=== PATIENT | male | born 1965 | race African-American/Black ===

== ENCOUNTER 2018-06-15 10:11 | Inpatient (IN) | payer OTHER ==
[2018-06-15 10:37] VITALS: BMI 30.1
--- NOTE | 2018-06-15 11:24 | HP ---
CIWA Score Nausea/Vomitin-Mild Nausea/No Vomiting Muscle Tremors: None Anxiety: 2 Agitation: 1-Slight > Activity Paroxysmal Sweats: No Perspiration Orientation: 0-Oriented Tacttile Disturbances: 0-None Auditory Disturbances: 0-None Visual Disturbances: 0-None Headache: 0-None Present CIWA-Ar Total Score: 4 - Admission Criteria OASAS Guidelines: Admission for Medically Managed Detox: Requires at least one of the followin. CIWA greater than 12 2. Seizures within the past 24 hours 3. Delirium tremens within the past 24 hours 4. Hallucinations within the past 24 hours 5. Acute intervention needed for co occurring medical disorder 6. Acute intervention needed for co occurring psychiatric disorder 7. Severe withdrawal that cannot be handled at a lower level of care (continued vomiting, continued diarrhea, abnormal vital signs) requiring intravenous medication and/or fluids 8. Patient presents the following: None of the above Admission Criteria Met: Admission criteria not met Admission ROS S - HPI Allergies/Adverse Reactions: Allergies Allergy/AdvReac Type Severity Reaction Status Date / Time No Known Drug Allergies Allergy Verified 08/19/16 17:35 History of Present Illness: patient here requesting detox etoh use reports 1 1/2 pint/day " for as long as I can remember " reports tremors if not drinking , denies seizures , blackouts , reports falls - most recently 1 week ago , hit right shoulder saw PCP given rx for Naproxen per pt own account ( [place] ) , states was referred by counsellor at [facility] , planning to go to rehab . Currently in [facility] 100 mg /day x 1 year , heroin use - latest 2-3 days ago , 1 bag denies IVDU . First age of heroin use : 18 , denies OD. Latest use this morning , usually starts drinking around 11 am. tobacco use : 1 ppd tony 0.004 PMHX : htn, hld, asthma ( dx 10 yrs ago , NH/ [place] , prn ALbuterol latest used yesterday) PSHx : denies PSych : insomnia , bipolar d/o . utox : + opi, MTD, BZO Meds : Seroquel , Clonazepam . SHX : unemployed , lives in 3/4 housing , denies legal issues. Reports recent of his son age 36 07/15 W February 2018 . This report was requested by: Soumya Coelho | Reference #: [id number] Others' Prescriptions Patient Name: Hussein Werner Date: 1965 Address: [address] [place], [place] [id number] Sex: Male Rx Written Rx Dispensed Drug Quantity Days Supply Prescriber Name 05/24/2018 06/03/2018 clonazepam 2 mg tablet 60 30 Adepoju, Tali Chelsey 04/26/2018 05/06/2018 clonazepam 2 mg tablet 60 30 Adepoju, Tali Chelsey 03/29/2018 04/06/2018 clonazepam 2 mg tablet 60 30 Adepoju, Tali Chelsey 03/01/2018 03/11/2018 clonazepam 2 mg tablet 60 30 Adepoju, Tali Chelsey 02/01/2018 02/10/2018 clonazepam 2 mg tablet 60 30 Adepoju, Tali Chelsey 01/04/2018 01/12/2018 clonazepam 2 mg tablet 60 30 Adepoju, Tali Chelsey 12/07/2017 12/13/2017 clonazepam 2 mg tablet 60 30 Adepoju, Tali Chelsey 11/09/2017 11/14/2017 clonazepam 1 mg tablet 90 30 Adepoju, Tali Chelsey 10/10/2017 10/15/2017 clonazepam 1 mg tablet 90 30 Adepoju, Tali Chelsey 09/15/2017 09/17/2017 clonazepam 1 mg tablet 90 30 Adepoju, Tali Chelsey 08/18/2017 08/19/2017 clonazepam 1 mg tablet 90 30 Adepoju, Tali Chelsey 07/21/2017 07/22/2017 clonazepam 1 mg tablet 90 30 Adepoju, Tali Chelsey 06/23/2017 06/23/2017 clonazepam 2 mg tablet 60 30 Adepoju, Tali Chelsey Exam Limitations: No Limitations - Ebola screening Have you traveled outside of the country in the last 21 days: No Have you had contact with anyone from an Ebola affected area: No Have you been sick,other than usual withdrawal symptoms: No Do you have a fever: No - Review of Systems Constitutional: See HPI EENT: reports: Other (glasses , dentures upper and lower) Respiratory: reports: No Symptoms reported Cardiac: reports: No Symptoms Reported GI: reports: No Symptoms Reported : reports: See HPI Musculoskeletal: reports: Joint Pain (right shoulder) Integumentary: reports: No Symptoms Reported Neuro: reports: No Symptoms reported Endocrine: reports: No Symptoms Reported Hematology: reports: No Symptoms Reported Psychiatric: reports: Orientated x3, Depressed Patient History - Patient Medical History Hx Anemia: No Hx Asthma: Yes (on albuterol inhaler) Hx Chronic Obstructive Pulmonary Disease (COPD): No Hx Cancer: No Hx Cardiac Disorders: No Hx Congestive Heart Failure: No Hx Hypertension: Yes (non compliance) Hx Hypercholesterolemia: No Hx Pacemaker: No HX Cerebrovascular Accident: No Hx Seizures: No Hx Dementia: No Hx Diabetes: No Hx Gastrointestinal Disorders: No Hx Liver Disease: No Hx Genitourinary Disorders: No Hx Sexually Transmitted Disorders: No Hx Renal Disease (ESRD): No Hx Thyroid Disease: No Hx Human Immunodeficiency Virus (HIV): No (last 08/11/16 negative) Hx Hepatitis C: No Hx Depression: Yes (insomnia) Hx Suicide Attempt: No Hx Bipolar Disorder: No Hx Schizophrenia: No - Patient Surgical History Past Surgical History: No Hx Neurologic Surgery: No Hx Cataract Extraction: No Hx Cardiac Surgery: No Hx Lung Surgery: No Hx Breast Surgery: No Hx Breast Biopsy: No Hx Abdominal Surgery: No Hx Appendectomy: No Hx Cholecystectomy: No Hx Genitourinary Surgery: No Hx Section: No Hx Orthopedic Surgery: No Anesthesia Reaction: No - Smoking Cessation Smoking history: Current every day smoker Have you smoked in the past 12 months: Yes Aproximately how many cigarettes per day: 20 Cigars Per Day: 0 Hx Chewing Tobacco Use: No Initiated information on smoking cessation: No - Substances Abused Crack Route: Smoking Frequency: 1-2 times per week Amount used: $50 Age of first use: 14 Date of Last Use: 06/11/18 Alcohol-vodka Route: Oral Frequency: Daily Amount used: 1-2 pts. Age of first use: 18 Date of Last Use: 06/14/18 Family Disease History - Family Disease History Family Disease History: CA: Brother ( prostate ), Other: Father (hiv ) Admission Physical Exam BHS - Vital Signs Vital Signs: Vital Signs - 24 hr 06/15/18 10:35 Temperature 98.4 F Pulse Rate 83 Respiratory 20 Rate Blood Pressure 121/70 - Physical General Appearance: Yes: Disheveled, Moderate Distress HEENTM: Yes: EOMI, Hearing grossly Normal, Normocephalic, Normal Voice, Other ( dentures) Respiratory: Yes: Chest Non-Tender, Lungs Clear Neck: Yes: No masses,lesions,Nodules, Trachea in good position Breast: Yes: Breast Exam Deferred Cardiology: Yes: Regular Rhythm, Regular Rate, S1, S2 Abdominal: Yes: Normal Bowel Sounds, Soft Genitourinary: Yes: Within Normal Limits Back: Yes: Normal Inspection Musculoskeletal: Yes: Gait Steady Extremities: Yes: Normal Capillary Refill, Normal Inspection Neurological: Yes: Alert, Normal Mood/Affect Integumentary: Yes: Normal Color, Dry, Warm - Diagnostic (1) Opioid dependence on agonist therapy Current Visit: No Status: Chronic (2) Asthma Current Visit: No Status: Chronic Qualifiers: Asthma severity: mild intermittent Asthma complication type: with status asthmaticus (3) Nicotine dependence Current Visit: No Status: Chronic Qualifiers: Nicotine product type: cigarettes Substance use status: uncomplicated Qualified Code(s): F17.210 - Nicotine dependence, cigarettes, uncomplicated (4) Alcohol dependence with withdrawal Current Visit: No Status: Acute Qualifiers: Complication of substance-induced condition: uncomplicated Qualified Code(s ): F10.230 - Alcohol dependence with withdrawal, uncomplicated BHS Breath Alcohol Content Breath Alcohol Content: 0.004 Urine Drug Screen - Results Drug Screen Negative: No Urine Drug Screen Results: OPI-Opiates, BZO-Benzodiazepines, MTD-Methadone
[2018-06-15] MEDS ORDERED: ACETAMINOPHEN 325 MG TABLET (FP) PO PRN (11:40)
[2018-06-15] MEDS ORDERED: MAG HYDROX/AL HYDROX/SIMETH 30 ML UNIT-DOSE CUP PO PRN (11:40)
[2018-06-15] MEDS ORDERED: guaiFENesin/D-METHORPHAN HB 10 ML UNIT-DOSE CUPS PO PRN (11:40)
[2018-06-15] MEDS ORDERED: chlordiazePOXIDE HCL 25 MG CAPSULE PO PRN (11:40)
[2018-06-15] MEDS ORDERED: MAGNESIUM CITRATE 300 ML BOTTLE PO PRN (11:40)
[2018-06-15] MEDS ORDERED: MENTHOL/PHENOL 1 EACH UD MM PRN (11:40)
[2018-06-15] MEDS ORDERED: MAGNESIUM HYDROX 2400MG/30ML ORAL SUSPENSION 30 ML CUP PO PRN (11:40)
[2018-06-15] MEDS ORDERED: P-EPHED 60MG/TRIPROLIDI 2.5MG TABLET PO PRN (11:40)
[2018-06-15] MEDS ORDERED: IBUPROFEN 400 MG TABLET (FP) PO PRN (11:40)
[2018-06-15] MEDS ORDERED: ALBUTEROL SO4 8 GM HFA INHALER IH PRN (11:42)
[2018-06-15] MEDS: chlordiazePOXIDE HCL 10 MG CAPSULE PO SCH ×2 (17:21→22:12)
[2018-06-15] MEDS ORDERED: MELATONIN 5 MG TABLETS PO PRN (22:00)
[2018-06-15] MEDS: THIAMINE HCL 100 MG TABLET (FP) PO SCH (22:12)
[2018-06-16] MEDS: chlordiazePOXIDE HCL 10 MG CAPSULE PO SCH ×2 (05:56→10:57)
[2018-06-16] MEDS ORDERED: METHADONE HCL 10 MG TABLET PO SCH (09:00)
--- NOTE | 2018-06-16 09:03 | CONSULT ---
[facility] Psychiatric Consult - Data Date of interview: 06/16/18 Admission source: [facility] Identifying data: Patient is a 52 year old single male, father of three, domiciled, unemployed, and supported by public assistance. This is one of multiple admissions for patient. Patient admitted to for alcohol and opiate dependence. Substance Abuse History: Smoking Cessation. Smoking history: Current every day smoker. Have you smoked in the past 12 months: Yes. Aproximately how many cigarettes per day: 20. Cigars Per Day: 0. Hx Chewing Tobacco Use: No. Initiated information on smoking cessation: No. - Substances Abused. Crack. Route: Smoking. Frequency: 1-2 times per week. Amount used: $50. Age of first use: 14. Date of Last Use: 06/11/18. Alcohol-vodka. Route: Oral. Frequency: Daily. Amount used: 1-2 pts. Age of first use: 18. Date of Last Use: 06/14/18 Medical History: Asthma, hypertension Psychiatric History: Patient presents as irritable and sedated. Patient denies h /o psychiatric hospitalizations. Mr. Werner is receiving outpatient psychiatric care at [facility] and is prescribed zoloft 100mg + Seroquel 300mg XR qhs + Klonopin 2mg BID. Patient denies h/o suicide attempt. Physical/Sexual Abuse/Trauma History: denies. Mental Status Exam - Mental Status Exam Alert and Oriented to: Time, Place, Person Cognitive Function: Good Patient Appearance: Well Groomed Mood: Irritable Affect: Mood Congruent Patient Behavior: Sedated, Fatigued Speech Pattern: Delayed Voice Loudness: Moderately Soft/Quiet Thought Process: Intact, Goal Oriented Thought Disorder: Not Present Hallucinations: Denies Suicidal Ideation: Denies Homicidal Ideation: Denies Insight/Judgement: Poor Sleep: Poorly (Reports poor sleep last night) Appetite: Fair Muscle strength/Tone: Normal Gait/Station: Normal Psychiatric Findings - Problem List ([place] 1, 2,3) (1) Opioid dependence Current Visit: Yes Status: Acute (2) Alcohol dependence with withdrawal Current Visit: Yes Status: Acute Qualifiers: Complication of substance-induced condition: uncomplicated Qualified Code(s ): F10.230 - Alcohol dependence with withdrawal, uncomplicated (3) Methadone maintenance therapy patient Current Visit: Yes Status: Acute (4) Substance induced mood disorder Current Visit: Yes Status: Acute - Initial Treatment Plan Initial Treatment Plan: Psychoeducation provided. Detoxification in progress. Will order Seroquel 200mg XR qhs @ 21:00 (reduce dosage due to risk of oversedation). Patient refusing to resume zoloft 100mg at this time. Patient informed of the risk of not resuming zoloft. Benefits and side effects discussed. Verbal consent given.
[2018-06-16] MEDS ORDERED: METHADONE HCL 40 MG DISPERSABLE TABLET ONE (09:24)
[2018-06-16] MEDS ORDERED: METHADONE HCL 10 MG TABLET ONE (09:24)
[2018-06-16 10:51] LABS: HEMATOCRIT 36.4 % (35.4-49); HEMOGLOBIN 11.5 GM/dL (11.7-16.9); MCH 26.3 pg (25.7-33.7); MCHC 31.6 g/dl (32.0-35.9); MEAN CELL VOLUME 83.3 fl (80-96); MEAN PLT VOLUME 9.5 fl (7.5-11.1); PLATELET COUNT 264 K/MM3 (134-434); RBC 4.37 M/mm3 (4.00-5.60); RDW 15.2 % (11.9-15.9)
[2018-06-16] MEDS: METHADONE 80 MG, METHADONE 20 MG PO SCH (10:58)
[2018-06-16] MEDS: PRENATAL VITAMINS W/ FOLIC ACID TABLET (FP) PO SCH (10:58)
[2018-06-16 11:40] LABS: ALBUMIN 3.8 g/dl (3.4-5.0); ALK PHOS 95 U/L (45-117); ANION GAP 8 MMOL/L (8-16); BILIRUBIN,TOTAL 0.7 mg/dL (0.2-1); BLOOD UREA NITROGEN 16 mg/dL (7-18); CHLORIDE 103 mmol/L (98-107); CO2 25 mmol/L (21-32); CREATININE 1.4 mg/dL (0.55-1.3); GLUCOSE,RANDOM 91 mg/dL (74-106); POTASSIUM 4.8 mmol/L (3.5-5.1); SGOT/AST 27 U/L (15-37); SGPT/ALT 34 U/L (13-61); SODIUM 136 mmol/L (136-145); TOT PROT 7.5 g/dl (6.4-8.2)
--- NOTE | 2018-06-16 17:52 | PN ---
S CIWA - CIWA Score Nausea/Vomitin-No Nausea/No Vomiting Muscle Tremors: None Anxiety: 4-Mod. Anxious/Guarded Agitation: 4-Moderately Restless Paroxysmal Sweats: No Perspiration Orientation: 0-Oriented Tacttile Disturbances: 2-Mild Itch/Numbness/Burn Auditory Disturbances: 0-None Visual Disturbances: 3-Moderate Sensitivity Headache: 0-None Present CIWA-Ar Total Score: 13 BHS Progress Note (SOAP) Subjective: Body Aches, Anxious, Diarrhea. Objective: PATIENT A & O X 3, OBSERVED AMBULATING ON UNIT. IN NO ACUTE DISTRESS. 06/16/18 17:51 Vital Signs Temperature 98.2 F 06/16/18 15:43 Pulse Rate 74 06/16/18 15:43 Respiratory Rate 18 06/16/18 15:43 Blood Pressure 132/93 06/16/18 15:43 O2 Sat by Pulse Oximetry (%) Laboratory Tests 06/15/18 06/16/18 06/16/18 15:36 05:45 05:45 WBC 10.0 RBC 4.37 Hgb 11.5 L Hct 36.4 MCV 83.3 MCH 26.3 MCHC 31.6 L RDW 15.2 Plt Count 264 MPV 9.5 Sodium 136 Potassium 4.8 Chloride 103 Carbon Dioxide 25 Anion Gap 8 BUN 16 Creatinine 1.4 H Creat Clearance w eGFR 52.81 Random Glucose 91 Calcium 9.0 Total Bilirubin 0.7 AST 27 ALT 34 Alkaline Phosphatase 95 Total Protein 7.5 Albumin 3.8 RPR Titer HIV 1&2 Antibody Screen Negative HIV P24 Antigen Negative 06/16/18 05:45 WBC RBC Hgb Hct MCV MCH MCHC RDW Plt Count MPV Sodium Potassium Chloride Carbon Dioxide Anion Gap BUN Creatinine Creat Clearance w eGFR Random Glucose Calcium Total Bilirubin AST ALT Alkaline Phosphatase Total Protein Albumin RPR Titer Nonreactive HIV 1&2 Antibody Screen HIV P24 Antigen LABS NOTED. Assessment: 06/16/18 17:51 WITHDRAWAL SYMPTOMS. Plan: CONTINUE DETOX. D/C IBUPROFEN AND MAGNESIUM-CONTAINING MEDS. FOR ABNORMAL ADMISSION RENAL LAB VALUES.
[2018-06-16] MEDS: chlordiazePOXIDE HCL 25 MG CAPSULE PO SCH ×2 (18:09→22:40)
[2018-06-16] MEDS ORDERED: QUEtiapine FUMARATE 200 MG TABLET PO SCH (22:00)
[2018-06-16] MEDS: THIAMINE HCL 100 MG TABLET (FP) PO SCH (22:40)
[2018-06-17] MEDS ORDERED: METHADONE HCL 40 MG DISPERSABLE TABLET ONE (05:30)
[2018-06-17] MEDS ORDERED: METHADONE HCL 10 MG TABLET ONE (05:30)
[2018-06-17] MEDS: METHADONE 80 MG, METHADONE 20 MG PO SCH (05:42)
[2018-06-17] MEDS: chlordiazePOXIDE HCL 25 MG CAPSULE PO SCH ×2 (05:42→10:32)
--- NOTE | 2018-06-17 10:05 | PN ---
S CIWA - CIWA Score Nausea/Vomitin Muscle Tremors: 2 Anxiety: 2 Agitation: 2 Paroxysmal Sweats: 1-Minimal Palms Moist Orientation: 0-Oriented Tacttile Disturbances: 1-Very Mild Itch/Numbness Auditory Disturbances: 1-Very Mild Visual Disturbances: 0-None Headache: 2-Mild CIWA-Ar Total Score: 13 BHS Progress Note (SOAP) Subjective: alert,irritable,anxious,interrupted sleep Objective: 06/17/18 10:02 Vital Signs Temperature 98.2 F 06/17/18 06:49 Pulse Rate 73 06/17/18 06:49 Respiratory Rate 18 06/17/18 06:49 Blood Pressure 118/67 06/17/18 06:49 O2 Sat by Pulse Oximetry (%) Laboratory Last Values WBC 10.0 K/mm3 (4.0-10.0) 06/16/18 05:45 RBC 4.37 M/mm3 (4.00-5.60) 06/16/18 05:45 Hgb 11.5 GM/dL (11.7-16.9) L 06/16/18 05:45 Hct 36.4 % (35.4-49) 06/16/18 05:45 MCV 83.3 fl (80-96) 06/16/18 05:45 MCH 26.3 pg (25.7-33.7) 06/16/18 05:45 MCHC 31.6 g/dl (32.0-35.9) L 06/16/18 05:45 RDW 15.2 % (11.9-15.9) 06/16/18 05:45 Plt Count 264 K/MM3 (134-434) 06/16/18 05:45 MPV 9.5 fl (7.5-11.1) 06/16/18 05:45 Sodium 136 mmol/L (136-145) 06/16/18 05:45 Potassium 4.8 mmol/L (3.5-5.1) 06/16/18 05:45 Chloride 103 mmol/L (98-107) 06/16/18 05:45 Carbon Dioxide 25 mmol/L (21-32) 06/16/18 05:45 Anion Gap 8 MMOL/L (8-16) 06/16/18 05:45 BUN 16 mg/dL (7-18) 06/16/18 05:45 Creatinine 1.4 mg/dL (0.55-1.3) H 06/16/18 05:45 Creat Clearance w eGFR 52.81 (>60) 06/16/18 05:45 Random Glucose 91 mg/dL (74-106) 06/16/18 05:45 Calcium 9.0 mg/dL (8.5-10.1) 06/16/18 05:45 Total Bilirubin 0.7 mg/dL (0.2-1) 06/16/18 05:45 AST 27 U/L (15-37) 06/16/18 05:45 ALT 34 U/L (13-61) 06/16/18 05:45 Alkaline Phosphatase 95 U/L (45-117) 06/16/18 05:45 Total Protein 7.5 g/dl (6.4-8.2) 06/16/18 05:45 Albumin 3.8 g/dl (3.4-5.0) 06/16/18 05:45 RPR Titer Nonreactive (NONREACTIVE) 06/16/18 05:45 HIV 1&2 Antibody Screen Negative 06/15/18 15:36 HIV P24 Antigen Negative 06/15/18 15:36 Assessment: 06/17/18 10:03 withdrawal symptom Plan: continue detox,creatinine 1.4,bun16,k4.8,continue fluid,repeat bpm in am
[2018-06-17] MEDS ORDERED: ALBUTEROL SO4 8 GM HFA INHALER IH PRN (10:07)
[2018-06-17] MEDS: PRENATAL VITAMINS W/ FOLIC ACID TABLET (FP) PO SCH (10:32)
[2018-06-17] MEDS: chlordiazePOXIDE 5 MG CAPSULE PO SCH ×2 (18:05→22:16)
[2018-06-17] MEDS: THIAMINE HCL 100 MG TABLET (FP) PO SCH (22:16)
[2018-06-18] MEDS ORDERED: METHADONE HCL 40 MG DISPERSABLE TABLET ONE (04:40)
[2018-06-18] MEDS ORDERED: METHADONE HCL 10 MG TABLET ONE (04:40)
[2018-06-18] MEDS: METHADONE 80 MG, METHADONE 20 MG PO SCH (06:03)
[2018-06-18] MEDS: chlordiazePOXIDE 5 MG CAPSULE PO SCH ×2 (06:03→10:29)
--- NOTE | 2018-06-18 10:25 | PN ---
BHS Progress Note (SOAP) Subjective: feeling better less sweat no tremor no gi distress discuss aftercare with staff Objective: 06/18/18 11:55 Vital Signs Temperature 97.9 F 06/18/18 09:48 Pulse Rate 88 06/18/18 09:48 Respiratory Rate 16 06/18/18 09:48 Blood Pressure 122/91 06/18/18 09:48 O2 Sat by Pulse Oximetry (%) Laboratory Last Values WBC 10.0 K/mm3 (4.0-10.0) 06/16/18 05:45 RBC 4.37 M/mm3 (4.00-5.60) 06/16/18 05:45 Hgb 11.5 GM/dL (11.7-16.9) L 06/16/18 05:45 Hct 36.4 % (35.4-49) 06/16/18 05:45 MCV 83.3 fl (80-96) 06/16/18 05:45 MCH 26.3 pg (25.7-33.7) 06/16/18 05:45 MCHC 31.6 g/dl (32.0-35.9) L 06/16/18 05:45 RDW 15.2 % (11.9-15.9) 06/16/18 05:45 Plt Count 264 K/MM3 (134-434) 06/16/18 05:45 MPV 9.5 fl (7.5-11.1) 06/16/18 05:45 Sodium 136 mmol/L (136-145) 06/16/18 05:45 Potassium 4.8 mmol/L (3.5-5.1) 06/16/18 05:45 Chloride 103 mmol/L (98-107) 06/16/18 05:45 Carbon Dioxide 25 mmol/L (21-32) 06/16/18 05:45 Anion Gap 8 MMOL/L (8-16) 06/16/18 05:45 BUN 16 mg/dL (7-18) 06/16/18 05:45 Creatinine 1.4 mg/dL (0.55-1.3) H 06/16/18 05:45 Creat Clearance w eGFR 52.81 (>60) 06/16/18 05:45 Random Glucose 91 mg/dL (74-106) 06/16/18 05:45 Calcium 9.0 mg/dL (8.5-10.1) 06/16/18 05:45 Total Bilirubin 0.7 mg/dL (0.2-1) 06/16/18 05:45 AST 27 U/L (15-37) 06/16/18 05:45 ALT 34 U/L (13-61) 06/16/18 05:45 Alkaline Phosphatase 95 U/L (45-117) 06/16/18 05:45 Total Protein 7.5 g/dl (6.4-8.2) 06/16/18 05:45 Albumin 3.8 g/dl (3.4-5.0) 06/16/18 05:45 RPR Titer Nonreactive (NONREACTIVE) 06/16/18 05:45 HIV 1&2 Antibody Screen Negative 06/15/18 15:36 HIV P24 Antigen Negative 06/15/18 15:36 lab noted Assessment: 06/18/18 11:55 mild withdrawal sx Plan: continue detox
[2018-06-18] MEDS: PRENATAL VITAMINS W/ FOLIC ACID TABLET (FP) PO SCH (10:29)
[2018-06-18 13:09] LABS: ANION GAP 7 MMOL/L (8-16); BLOOD UREA NITROGEN 14 mg/dL (7-18); CALCIUM 8.5 mg/dL (8.5-10.1); CHLORIDE 104 mmol/L (98-107); CO2 28 mmol/L (21-32); CREATININE 1.2 mg/dL (0.55-1.3); GLUCOSE,RANDOM 112 mg/dL (74-106); POTASSIUM 3.9 mmol/L (3.5-5.1); SODIUM 138 mmol/L (136-145)
[2018-06-18] MEDS: chlordiazePOXIDE HCL 10 MG CAPSULE PO SCH ×2 (17:57→22:32)
[2018-06-18] MEDS: THIAMINE HCL 100 MG TABLET (FP) PO SCH (22:32)
[2018-06-19] MEDS ORDERED: METHADONE HCL 40 MG DISPERSABLE TABLET ONE (05:54)
[2018-06-19] MEDS ORDERED: METHADONE HCL 10 MG TABLET ONE (05:55)
[2018-06-19] MEDS: chlordiazePOXIDE HCL 10 MG CAPSULE PO SCH (06:02)
[2018-06-19] MEDS: METHADONE 80 MG, METHADONE 20 MG PO SCH (06:02)
[2018-06-19 07:22] VITALS: TEMP 97.7
[2018-06-19 07:36] VITALS: BP 132/86; PULSE 85
--- NOTE | 2018-06-19 21:35 | DS ---
[facility] Detox Discharge Summary Admission Date: 06/15/18 Discharge Date: 06/19/18 - History Present History: Alcohol Dependence, Opioid Dependence, MMTP Additional Comments: PATIENT RETURNING TO [facility] ([place], [place]) FOR AFTERCARE. PATIENT WILL ALSO ATTEND [facility] ([place], [place]) FOR AFTERCARE. PATIENT WAS DISCHARGED FROM DETOX UNIT IN STABLE MEDICAL CONDITION. Pertinent Past History: History of Depression, History of Anxiety, History of Insomnia, M.M.T.P., Nicotine Dependence. - Physical Exam Results Vital Signs: Vital Signs Temperature 97.7 F 06/19/18 07:35 Pulse Rate 85 06/19/18 07:35 Respiratory Rate 20 06/19/18 07:35 Blood Pressure 132/86 06/19/18 07:35 O2 Sat by Pulse Oximetry (%) Pertinent Admission Physical Exam Findings: WITHDRAWAL SYMPTOMS. Laboratory Tests 06/15/18 06/16/18 06/16/18 15:36 05:45 05:45 WBC 10.0 RBC 4.37 Hgb 11.5 L Hct 36.4 MCV 83.3 MCH 26.3 MCHC 31.6 L RDW 15.2 Plt Count 264 MPV 9.5 Sodium 136 Potassium 4.8 Chloride 103 Carbon Dioxide 25 Anion Gap 8 BUN 16 Creatinine 1.4 H Creat Clearance w eGFR 52.81 Random Glucose 91 Calcium 9.0 Total Bilirubin 0.7 AST 27 ALT 34 Alkaline Phosphatase 95 Total Protein 7.5 Albumin 3.8 RPR Titer HIV 1&2 Antibody Screen Negative HIV P24 Antigen Negative 06/16/18 06/18/18 05:45 07:40 WBC RBC Hgb Hct MCV MCH MCHC RDW Plt Count MPV Sodium 138 Potassium 3.9 Chloride 104 Carbon Dioxide 28 Anion Gap 7 L BUN 14 Creatinine 1.2 Creat Clearance w eGFR > 60 Random Glucose 112 H Calcium 8.5 Total Bilirubin AST ALT Alkaline Phosphatase Total Protein Albumin RPR Titer Nonreactive HIV 1&2 Antibody Screen HIV P24 Antigen LABS NOTED. - Treatment Hospital Course: Detox Protocol Followed, Detoxed Safely, Responded well, Discharged Condition Good Patient has Accepted a Rehab Referral to: '[facility]/ [facility] ([place], [place]). - Medication Discharge Medications: Ambulatory Orders Quetiapine Fumarate [Seroquel -] 300 mg PO HS 04/20/16 Albuterol Sulfate Inhaler - [Ventolin HFA Inhaler -] 2 puff IH Q4H PRN #1 inhaler 08/23/16 Clonidine HCl [Catapres] 0.3 mg PO TID 06/15/18 Quetiapine Fumarate "Xr" [Seroquel XR] 200 mg PO HS 06/16/18 - Diagnosis (1) Alcohol dependence with withdrawal Status: Acute Qualifiers: Complication of substance-induced condition: uncomplicated Qualified Code(s ): F10.230 - Alcohol dependence with withdrawal, uncomplicated (2) Asthma Status: Chronic Qualifiers: Asthma severity: mild Asthma persistence: intermittent Asthma complication type: uncomplicated Qualified Code(s): J45.20 - Mild intermittent asthma, uncomplicated (3) Nicotine dependence Status: Chronic Qualifiers: Nicotine product type: cigarettes Substance use status: uncomplicated Qualified Code(s): F17.210 - Nicotine dependence, cigarettes, uncomplicated (4) Opioid dependence on agonist therapy Status: Chronic (5) Methadone maintenance therapy patient Status: Chronic (6) Substance induced mood disorder Status: Acute - AMA Did Patient Leave Against Medical Advice: No
== END 2018-06-19 09:07 | disposition home or self-care (01) | DRG 773 ==
LOC: YASAS 10:11 → Y6N 14:47
PROC: HZ2ZZZZ Detoxification Services for Substance Abuse Treatment (ICD-10-PCS; principal; 2018-06-15)
DX: F10.230 Alcohol dependence with withdrawal, uncomplicated (principal); F14.20 Cocaine dependence, uncomplicated; F11.20 Opioid dependence, uncomplicated; F17.210 Nicotine dependence, cigarettes, uncomplicated; F19.24 Other psychoactive substance dependence with psychoactive substance-induced mood disorder; F31.9 Bipolar disorder, unspecified; G47.00 Insomnia, unspecified; I10 Essential (primary) hypertension; J45.20 Mild intermittent asthma, uncomplicated; E78.5 Hyperlipidemia, unspecified
CPT/HCPCS: 36415; 80048; 80053; 85027; 86593; 87389

== ENCOUNTER 2020-03-13 15:04 | Inpatient (IN) | payer OTHER ==
--- NOTE | 2020-03-13 15:20 | BHS.RME ---
Substance Use & Tx History - Substance Use History Alcohol Substance amount: 1 pint vodka Frequency of use: Daily Substance route: Oral Date of Last Use: 03/12/20 (started age 18) Heroin Substance amount: 2 bags Frequency of use: Daily Substance route: Inhalation (ex: sniffing or snorting) Date of Last Use: 03/13/20 (started age 18) Cocaine-Crack Substance amount: $70 Frequency of use: Daily Substance route: Smoking Date of Last Use: 03/13/20 (started age 16) Nicotine Substance amount: 1 pack Frequency of use: Daily Substance route: Smoking Date of Last Use: 03/13/20 (started age 13) Klonopin Substance amount: 1mg 2 tabs Frequency of use: Daily Substance route: Oral Date of Last Use: 03/13/20 (prescribed by psychiatrist) Physical/Psych/Mental Status - Behavior General Behavior: Increased activity (restlessness, agitation) Eye Contact: Normal - Cooperativeness Cooperativeness: Cooperative - Thinking Thought Processes: Tight, Logical, Goal Directed - Physical Health Problems Is patient presently having any pain?: No Does patient presently have any injuries (include location): No Does patient currently have a fever: No Is patient : No CIWA Nausea/Vomitin-No Nausea/No Vomiting Muscle Tremors: 3 Anxiety: 3 Agitation: 3 Paroxysmal Sweats: 1-Minimal Palms Moist Orientation: 0-Oriented Tacttile Disturbances: 0-None Auditory Disturbances: 0-None Visual Disturbances: 1-Very Mild Sensitivity Headache: 0-None Present CIWA-Ar Total Score: 11
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
[2020-03-13] MEDS ORDERED: NICOTINE POLACRILEX 2 MG GUM BUC PRN (16:34)
[2020-03-13] MEDS ORDERED: MAGNESIUM CITRATE 300 ML BOTTLE PO PRN (16:34)
[2020-03-13] MEDS ORDERED: chlordiazePOXIDE HCL 25 MG CAPSULE PO PRN (16:34)
[2020-03-13] MEDS ORDERED: ACETAMINOPHEN 325 MG TABLET (FP) PO PRN ×2 (16:34)
[2020-03-13] MEDS ORDERED: MENTHOL/PHENOL 1 EACH UD MM PRN (16:34)
[2020-03-13] MEDS ORDERED: BISMUTH SUBSALICYLATE 524 MG/30 ML UD PO PRN (16:34)
[2020-03-13] MEDS ORDERED: ONDANSETRON *ODT* 4 MG TABLET SL PRN (16:34)
[2020-03-13] MEDS ORDERED: MAG HYDROX/AL HYDROX/SIMETH 30 ML UNIT-DOSE CUP PO PRN (16:34)
[2020-03-13] MEDS ORDERED: IBUPROFEN 400 MG TABLET (FP) PO PRN (16:34)
[2020-03-13] MEDS ORDERED: MAGNESIUM HYDROX 2400MG/30ML ORAL SUSPENSION 30 ML CUP PO PRN (16:34)
[2020-03-13] MEDS ORDERED: METHOCARBAMOL 500 MG TABLET PO PRN (16:34)
[2020-03-13 16:46] VITALS: BMI 27.4
[2020-03-13] MEDS ORDERED: ALBUTEROL SO4 HFA INHALER IH PRN (17:31)
[2020-03-13] MEDS: chlordiazePOXIDE HCL 25 MG CAPSULE PO SCH ×2 (18:22→22:10)
[2020-03-13] MEDS: NICOTINE 21 MG/24 HOURS TOPICAL PATCH TD SCH (18:22)
[2020-03-13] MEDS: PETROLATUM, WHITE 30 GM TUBE TP SCH (18:23)
[2020-03-13] MEDS: hydrOXYzine PAMOATE 25 MG CAPSULE (FP) PO SCH ×2 (18:26→22:12)
[2020-03-13] MEDS: THIAMINE HCL 100 MG TABLET (FP) PO SCH (22:10)
[2020-03-13] MEDS: MELATONIN 5 MG TABLETS PO SCH (22:11)
[2020-03-13] MEDS: cloNIDine HCL 0.1 MG TABLET PO SCH (22:11)
[2020-03-14] MEDS: hydrOXYzine PAMOATE 25 MG CAPSULE (FP) PO SCH ×5 (07:06→22:41)
[2020-03-14] MEDS: chlordiazePOXIDE HCL 25 MG CAPSULE PO SCH ×4 (07:06→22:41)
[2020-03-14] MEDS: cloNIDine HCL 0.1 MG TABLET PO SCH ×2 (07:12→13:21)
--- NOTE | 2020-03-14 08:17 | PN ---
Teaching Attending Note Name of Resident: Jose Barnes ATTENDING PHYSICIAN STATEMENT I saw and evaluated the patient. I reviewed the resident's note and discussed the case with the resident. I agree with the resident's findings and plan as documented. SUBJECTIVE: OBJECTIVE: ASSESSMENT AND PLAN: Agree with resident's findings and plan for detox.
--- NOTE | 2020-03-14 10:26 | EKG ---
Test Reason : Blood Pressure : / mmHG Vent. Rate : 064 BPM Atrial Rate : 064 BPM P-R Int : 112 ms QRS Dur : 086 ms QT Int : 416 ms P-R-T Axes : 025 047 032 degrees QTc Int : 429 ms NORMAL SINUS RHYTHM NONSPECIFIC T WAVE ABNORMALITY ABNORMAL ECG WHEN COMPARED WITH ECG OF 19-AUG-2016 19:09, NONSPECIFIC T WAVE ABNORMALITY NOW EVIDENT IN ANTERIOR LEADS CLINICAL CORRELATION IS RECOMMENDED Confirmed by ROXANA AHUJA MD ([id number]) on 03/14/2020 10:25:53 AM Referred By: Confirmed By:ROXANA AHUJA MD
[2020-03-14 10:30] LABS: HEMATOCRIT 34.5 % (35.4-49); HEMOGLOBIN 11.2 GM/dL (11.7-16.9); MCH 27.1 pg (25.7-33.7); MCHC 32.4 g/dl (32.0-35.9); MEAN CELL VOLUME 83.6 fl (80-96); PLATELET COUNT 216 K/MM3 (134-434); RBC 4.13 M/mm3 (4.00-5.60); RDW 14.3 % (11.9-15.9); WHITE BLOOD COUNT 7.8 K/mm3 (4.0-10.0)
[2020-03-14 10:40] LABS: ALBUMIN 3.5 g/dl (3.4-5.0); BILIRUBIN,TOTAL 0.6 mg/dL (0.2-1); BLOOD UREA NITROGEN 15.8 mg/dL (7-18); CALCIUM 8.7 mg/dL (8.5-10.1); CREATININE 1.2 mg/dL (0.55-1.3); POTASSIUM 3.9 mmol/L (3.5-5.1); TOT PROT 6.4 g/dl (6.4-8.2)
[2020-03-14] MEDS: METHADONE HCL 40 MG DISPERSABLE TABLET PO SCH (11:31)
[2020-03-14] MEDS: PETROLATUM, WHITE 30 GM TUBE TP SCH (11:32)
[2020-03-14] MEDS: PRENATAL VITAMINS W/ FOLIC ACID TABLET (FP) PO SCH (11:32)
[2020-03-14] MEDS: NICOTINE 21 MG/24 HOURS TOPICAL PATCH TD SCH (11:32)
--- NOTE | 2020-03-14 12:02 | CONSULT ---
[facility] Psychiatric Consult - Data Date of interview: 03/14/20 Admission source: [facility] Identifying data: Patient is approached, at bedside, for psychiatric evaluation. Medical student in attendance. Mr Werner refuses examination. " What is your reason for talking to me ? I don't have psychiatric problems." Nursing staff is made aware.
--- NOTE | 2020-03-14 12:41 | PN ---
S CIWA - CIWA Score Nausea/Vomitin-No Nausea/No Vomiting Muscle Tremors: 2 Anxiety: 3 Agitation: 0-Normal Activity Paroxysmal Sweats: 3 Orientation: 0-Oriented Tacttile Disturbances: 0-None Auditory Disturbances: 0-None Visual Disturbances: 0-None Headache: 2-Mild CIWA-Ar Total Score: 10 BHS Progress Note (SOAP) Subjective: c/o anxiety, sweats, shakes, and headache. Objective: 03/14/20 12:40 Vital Signs 03/14/20 03/14/20 05:49 09:05 Temperature 97.7 F 96.8 F L Pulse Rate 59 L 76 Respiratory 18 18 Rate Blood Pressure 118/71 131/83 O2 Sat by Pulse 98 Oximetry (%) Laboratory Last Values WBC 7.8 K/mm3 (4.0-10.0) 03/14/20 07:35 RBC 4.13 M/mm3 (4.00-5.60) 03/14/20 07:35 Hgb 11.2 GM/dL (11.7-16.9) L 03/14/20 07:35 Hct 34.5 % (35.4-49) L 03/14/20 07:35 MCV 83.6 fl (80-96) 03/14/20 07:35 MCH 27.1 pg (25.7-33.7) 03/14/20 07:35 MCHC 32.4 g/dl (32.0-35.9) 03/14/20 07:35 RDW 14.3 % (11.9-15.9) 03/14/20 07:35 Plt Count 216 K/MM3 (134-434) 03/14/20 07:35 MPV 9.0 fl (7.5-11.1) 03/14/20 07:35 Sodium 143 mmol/L (136-145) 03/14/20 07:35 Potassium 3.9 mmol/L (3.5-5.1) 03/14/20 07:35 Chloride 110 mmol/L (98-107) H 03/14/20 07:35 Carbon Dioxide 29 mmol/L (21-32) 03/14/20 07:35 Anion Gap 4 MMOL/L (8-16) L 03/14/20 07:35 BUN 15.8 mg/dL (7-18) 03/14/20 07:35 Creatinine 1.2 mg/dL (0.55-1.3) 03/14/20 07:35 Est GFR (CKD-EPI)AfAm 77.88 03/14/20 07:35 Est GFR (CKD-EPI)NonAf 67.19 03/14/20 07:35 Random Glucose 104 mg/dL (74-106) 03/14/20 07:35 Calcium 8.7 mg/dL (8.5-10.1) 03/14/20 07:35 Total Bilirubin 0.6 mg/dL (0.2-1) 03/14/20 07:35 AST 24 U/L (15-37) 03/14/20 07:35 ALT 25 U/L (13-61) 03/14/20 07:35 Alkaline Phosphatase 71 U/L (45-117) 03/14/20 07:35 Total Protein 6.4 g/dl (6.4-8.2) 03/14/20 07:35 Albumin 3.5 g/dl (3.4-5.0) 03/14/20 07:35 Labs noted. Assessment: 03/14/20 12:40 AOX3, in no acute respiratory distress. Full ROM, ambulating in the unit. Withdrawal symptoms. Plan: continue detox.
--- NOTE | 2020-03-14 14:07 | PN ---
S Progress Note Note: clonidine 0.3mg po tid discontinued, as per pt's pharmacy ([facility], [address] [place], [place] [id number], ) pt last refill was on 06/28/2019 (June 28, 2019).
--- NOTE | 2020-03-14 20:23 | PN ---
[facility] Progress Note Note: Called to see patient who was found sitting on floor. Patient denies falling. States "I went down on my knees so I could lay my head in the chair to help decrease my neck and shoulder pain." Patient states was sitting in chair and put head back and heard neck crack. States he had pain immediately going down arm and now has numbness in middle and ring finger of (L) hand." Assess: FROM neck, slowly. No crepitus palpated. FROM (L) shoulder w/ tenderness w/lift > 90 degrees and w/o crepitus. Positive tenderness upon palpation of the trapezius/scapula muscle area. Plan: Muscle relaxants (Robaxin) Increase ibuprofen dosage Lidocaine patch (L) shoulder area.
[2020-03-14] MEDS ORDERED: IBUPROFEN 600 MG TABLET (FP) PO PRN (20:40)
[2020-03-14] MEDS: LIDOCAINE 5% TOPICAL PATCH TP SCH (21:55)
[2020-03-14] MEDS: MELATONIN 5 MG TABLETS PO SCH (22:41)
[2020-03-14] MEDS: THIAMINE HCL 100 MG TABLET (FP) PO SCH (22:41)
[2020-03-15] MEDS: METHADONE HCL 40 MG DISPERSABLE TABLET PO SCH (05:56)
[2020-03-15] MEDS: chlordiazePOXIDE HCL 25 MG CAPSULE PO SCH ×4 (05:56→22:08)
[2020-03-15] MEDS: hydrOXYzine PAMOATE 25 MG CAPSULE (FP) PO SCH ×5 (05:56→22:08)
[2020-03-15] MEDS: PRENATAL VITAMINS W/ FOLIC ACID TABLET (FP) PO SCH (10:07)
[2020-03-15] MEDS: LIDOCAINE PATCH REMOVAL MC SCH (10:53)
[2020-03-15] MEDS: PETROLATUM, WHITE 30 GM TUBE TP SCH (10:55)
[2020-03-15] MEDS: NICOTINE 21 MG/24 HOURS TOPICAL PATCH TD SCH (10:55)
--- NOTE | 2020-03-15 13:02 | PN ---
S CIWA - CIWA Score Nausea/Vomitin-No Nausea/No Vomiting Muscle Tremors: None Anxiety: 2 Agitation: 2 Paroxysmal Sweats: 2 Orientation: 0-Oriented Tacttile Disturbances: 0-None Auditory Disturbances: 0-None Visual Disturbances: 0-None Headache: 2-Mild CIWA-Ar Total Score: 8 S Progress Note (SOAP) Subjective: c/o anxiety, sweats, and headache. Objective: 03/15/20 12:58 Vital Signs 03/15/20 03/15/20 06:23 10:44 Temperature 97.1 F L 96.8 F L Pulse Rate 58 L 75 Respiratory 16 18 Rate Blood Pressure 130/76 138/82 O2 Sat by Pulse 96 96 Oximetry (%) Laboratory Last Values WBC 7.8 K/mm3 (4.0-10.0) 03/14/20 07:35 RBC 4.13 M/mm3 (4.00-5.60) 03/14/20 07:35 Hgb 11.2 GM/dL (11.7-16.9) L 03/14/20 07:35 Hct 34.5 % (35.4-49) L 03/14/20 07:35 MCV 83.6 fl (80-96) 03/14/20 07:35 MCH 27.1 pg (25.7-33.7) 03/14/20 07:35 MCHC 32.4 g/dl (32.0-35.9) 03/14/20 07:35 RDW 14.3 % (11.9-15.9) 03/14/20 07:35 Plt Count 216 K/MM3 (134-434) 03/14/20 07:35 MPV 9.0 fl (7.5-11.1) 03/14/20 07:35 Sodium 143 mmol/L (136-145) 03/14/20 07:35 Potassium 3.9 mmol/L (3.5-5.1) 03/14/20 07:35 Chloride 110 mmol/L (98-107) H 03/14/20 07:35 Carbon Dioxide 29 mmol/L (21-32) 03/14/20 07:35 Anion Gap 4 MMOL/L (8-16) L 03/14/20 07:35 BUN 15.8 mg/dL (7-18) 03/14/20 07:35 Creatinine 1.2 mg/dL (0.55-1.3) 03/14/20 07:35 Est GFR (CKD-EPI)AfAm 77.88 03/14/20 07:35 Est GFR (CKD-EPI)NonAf 67.19 03/14/20 07:35 Random Glucose 104 mg/dL (74-106) 03/14/20 07:35 Calcium 8.7 mg/dL (8.5-10.1) 03/14/20 07:35 Total Bilirubin 0.6 mg/dL (0.2-1) 03/14/20 07:35 AST 24 U/L (15-37) 03/14/20 07:35 ALT 25 U/L (13-61) 03/14/20 07:35 Alkaline Phosphatase 71 U/L (45-117) 03/14/20 07:35 Total Protein 6.4 g/dl (6.4-8.2) 03/14/20 07:35 Albumin 3.5 g/dl (3.4-5.0) 03/14/20 07:35 Syphilis Serology Reactive (NONREACTIVE) A* 03/14/20 07:35 RPR Titer Reactive 1:1 (NONREACTIVE) H D 03/14/20 07:35 COVID-19 (CHELLE) Not detected (Not Detected) 03/13/20 17:20 Labs noted with RPR of 1:1 Assessment: 03/15/20 12:58 AOX3, in no acute respiratory distress. Full ROM, ambulating in the unit. Withdrawal symptoms. RPR 1:1, pt states he can't recall been diagnosed before with syphillis. Pt denies any oral or penile lesions at this time. Pt is encouraged to follow-up with his pmd after discharge which he verbalized understanding. Plan: continue detox.
[2020-03-15] MEDS: MELATONIN 5 MG TABLETS PO SCH (22:07)
[2020-03-15] MEDS: THIAMINE HCL 100 MG TABLET (FP) PO SCH (22:07)
[2020-03-15] MEDS: LIDOCAINE 5% TOPICAL PATCH TP SCH (22:10)
[2020-03-16] MEDS ORDERED: chlordiazePOXIDE HCL 10 MG CAPSULE PO PRN
[2020-03-16] MEDS: chlordiazePOXIDE HCL 10 MG CAPSULE PO SCH ×4 (05:13→22:43)
[2020-03-16] MEDS: METHADONE HCL 40 MG DISPERSABLE TABLET PO SCH (05:13)
[2020-03-16] MEDS: hydrOXYzine PAMOATE 25 MG CAPSULE (FP) PO SCH ×5 (05:15→21:28)
[2020-03-16] MEDS: NICOTINE 21 MG/24 HOURS TOPICAL PATCH TD SCH (11:37)
[2020-03-16] MEDS: PETROLATUM, WHITE 30 GM TUBE TP SCH (11:37)
[2020-03-16] MEDS: LIDOCAINE PATCH REMOVAL MC SCH (11:37)
[2020-03-16] MEDS: PRENATAL VITAMINS W/ FOLIC ACID TABLET (FP) PO SCH (11:37)
--- NOTE | 2020-03-16 15:03 | PN ---
S CIWA - CIWA Score Nausea/Vomitin-Mild Nausea/No Vomiting Muscle Tremors: 2 Anxiety: 2 Agitation: 1-Slight > Activity Paroxysmal Sweats: No Perspiration Orientation: 0-Oriented Tacttile Disturbances: 0-None Auditory Disturbances: 0-None Visual Disturbances: 0-None Headache: 0-None Present CIWA-Ar Total Score: 6 BHS Progress Note (SOAP) Subjective: 54 years old male was admitted on 03/13/20 for alcohol and benzo withdrawal sx management treating with librium detox regiment denies pain on left shoulder today ate breakfast and lunch in room dress self received methadone 120 mg po today Objective: 03/16/20 15:02 Vital Signs - 24 hr 03/15/20 03/15/20 03/16/20 16:35 21:00 06:32 Temperature 97.7 F 97.1 F L 97.2 F L Pulse Rate 66 66 61 Respiratory 16 18 18 Rate Blood Pressure 125/79 122/78 139/88 O2 Sat by Pulse 100 99 Oximetry (%) 03/16/20 03/16/20 09:47 12:50 Temperature 97 F L 97.3 F L Pulse Rate 71 81 Respiratory 18 20 Rate Blood Pressure 113/73 114/65 O2 Sat by Pulse 98 Oximetry (%) Laboratory Tests 03/13/20 03/14/20 03/14/20 17:20 07:35 07:35 WBC 7.8 RBC 4.13 Hgb 11.2 L Hct 34.5 L MCV 83.6 MCH 27.1 MCHC 32.4 RDW 14.3 Plt Count 216 MPV 9.0 Sodium 143 Potassium 3.9 Chloride 110 H Carbon Dioxide 29 Anion Gap 4 L BUN 15.8 Creatinine 1.2 Est GFR (CKD-EPI)AfAm 77.88 Est GFR (CKD-EPI)NonAf 67.19 Random Glucose 104 Calcium 8.7 Total Bilirubin 0.6 AST 24 ALT 25 Alkaline Phosphatase 71 Total Protein 6.4 Albumin 3.5 Syphilis Serology RPR Titer COVID-19 (CHELLE) Not detected 03/14/20 03/14/20 07:35 07:35 WBC RBC Hgb Hct MCV MCH MCHC RDW Plt Count MPV Sodium Potassium Chloride Carbon Dioxide Anion Gap BUN Creatinine Est GFR (CKD-EPI)AfAm Est GFR (CKD-EPI)NonAf Random Glucose Calcium Total Bilirubin AST ALT Alkaline Phosphatase Total Protein Albumin Syphilis Serology Reactive A* RPR Titer Reactive 1:1 H D COVID-19 (CHELLE) 03/16/20 15:03 mr dixon does not recall history of syphilis treatment penicillin Im x 1 03/16/20 15:06 03/16/20 15:07 penicillin IM x 1 03/16/20 15:08 following IM once a week x 3 weeks Assessment: 03/16/20 15:08 alcohol and benzo withdrawal Plan: librium regiment
[2020-03-16] MEDS ORDERED: PENICILLIN G BENZATHINE 2,400,000 UNIT/4 ML PFS IM ONE (17:00)
[2020-03-16] MEDS: THIAMINE HCL 100 MG TABLET (FP) PO SCH (21:28)
[2020-03-16] MEDS: LIDOCAINE 5% TOPICAL PATCH TP SCH (21:29)
[2020-03-16] MEDS: MELATONIN 5 MG TABLETS PO SCH (21:29)
[2020-03-17] MEDS: hydrOXYzine PAMOATE 25 MG CAPSULE (FP) PO SCH ×5 (05:27→23:10)
[2020-03-17] MEDS: METHADONE HCL 40 MG DISPERSABLE TABLET PO SCH (05:27)
[2020-03-17] MEDS: chlordiazePOXIDE HCL 10 MG CAPSULE PO SCH ×2 (05:27→17:07)
[2020-03-17] MEDS: PRENATAL VITAMINS W/ FOLIC ACID TABLET (FP) PO SCH (09:45)
[2020-03-17] MEDS: NICOTINE 21 MG/24 HOURS TOPICAL PATCH TD SCH (09:47)
[2020-03-17] MEDS: PETROLATUM, WHITE 30 GM TUBE TP SCH (09:47)
[2020-03-17] MEDS: LIDOCAINE PATCH REMOVAL MC SCH (09:47)
--- NOTE | 2020-03-17 12:11 | PN ---
[facility] CIWA - CIWA Score Nausea/Vomitin-No Nausea/No Vomiting Muscle Tremors: 1-None Visible, but Benedict Anxiety: 1-Mildly Anxious Agitation: 0-Normal Activity Paroxysmal Sweats: No Perspiration Orientation: 0-Oriented Tacttile Disturbances: 0-None Auditory Disturbances: 0-None Visual Disturbances: 1-Very Mild Sensitivity Headache: 0-None Present CIWA-Ar Total Score: 3 BHS Progress Note (SOAP) Subjective: 54 years old male was admitted on 03/13/20 for alcohol and benzo withdrawal sx management treating with librium detox regiment received methadone 120mg po today and tolerated penicillin IM well mr dixon agrees to continue penicillin IM on 03/23/20 and 03/30/20 Objective: 03/17/20 12:09 Vital Signs - 24 hr 03/16/20 03/16/20 03/16/20 12:50 16:42 20:32 Temperature 97.3 F L 97.3 F L 97.7 F Pulse Rate 81 65 69 Respiratory 20 18 18 Rate Blood Pressure 114/65 148/92 146/87 O2 Sat by Pulse 98 98 100 Oximetry (%) 03/17/20 03/17/20 06:40 08:39 Temperature 98.1 F 97.1 F L Pulse Rate 64 78 Respiratory 18 18 Rate Blood Pressure 160/100 148/94 O2 Sat by Pulse 100 Oximetry (%) Laboratory Tests 03/13/20 03/14/20 03/14/20 17:20 07:35 07:35 WBC 7.8 RBC 4.13 Hgb 11.2 L Hct 34.5 L MCV 83.6 MCH 27.1 MCHC 32.4 RDW 14.3 Plt Count 216 MPV 9.0 Sodium 143 Potassium 3.9 Chloride 110 H Carbon Dioxide 29 Anion Gap 4 L BUN 15.8 Creatinine 1.2 Est GFR (CKD-EPI)AfAm 77.88 Est GFR (CKD-EPI)NonAf 67.19 Random Glucose 104 Calcium 8.7 Total Bilirubin 0.6 AST 24 ALT 25 Alkaline Phosphatase 71 Total Protein 6.4 Albumin 3.5 Syphilis Serology RPR Titer COVID-19 (CHELLE) Not detected 03/14/20 03/14/20 07:35 07:35 WBC RBC Hgb Hct MCV MCH MCHC RDW Plt Count MPV Sodium Potassium Chloride Carbon Dioxide Anion Gap BUN Creatinine Est GFR (CKD-EPI)AfAm Est GFR (CKD-EPI)NonAf Random Glucose Calcium Total Bilirubin AST ALT Alkaline Phosphatase Total Protein Albumin Syphilis Serology Reactive A* RPR Titer Reactive 1:1 H D COVID-19 (CHELLE) mr agrees to have three penicillin IM in three weeks Assessment: 03/17/20 12:10 alcohol and benzo withdrawal Plan: librium regiment
[2020-03-17] MEDS: amLODIPine BESYLATE 10 MG TABLET (FP) PO SCH (15:56)
[2020-03-17] MEDS: LIDOCAINE 5% TOPICAL PATCH TP SCH (23:07)
[2020-03-17] MEDS: MELATONIN 5 MG TABLETS PO SCH (23:09)
[2020-03-17] MEDS: THIAMINE HCL 100 MG TABLET (FP) PO SCH (23:09)
[2020-03-18] MEDS ORDERED: chlordiazePOXIDE HCL 10 MG CAPSULE PO ONE (05:00)
[2020-03-18] MEDS: METHADONE HCL 40 MG DISPERSABLE TABLET PO SCH (05:42)
[2020-03-18] MEDS: hydrOXYzine PAMOATE 25 MG CAPSULE (FP) PO SCH ×3 (05:42→13:04)
[2020-03-18] MEDS: LIDOCAINE PATCH REMOVAL MC SCH (10:10)
[2020-03-18] MEDS: amLODIPine BESYLATE 10 MG TABLET (FP) PO SCH (10:11)
[2020-03-18] MEDS: NICOTINE 21 MG/24 HOURS TOPICAL PATCH TD SCH (10:11)
[2020-03-18] MEDS: PETROLATUM, WHITE 30 GM TUBE TP SCH (10:11)
[2020-03-18] MEDS: PRENATAL VITAMINS W/ FOLIC ACID TABLET (FP) PO SCH (10:11)
--- NOTE | 2020-03-18 11:18 | DS ---
[facility] Detox Discharge Summary Admission Date: 03/13/20 Discharge Date: 03/18/20 - History Present History: Alcohol Dependence, Sedative Dependence Additional Comments: 54 years old male was admitted on 03/13/20 for alcohol and benzo withdrawal sx management treated with librium detox regiment mr dixon prefers no to be seen by psychiatrist mr dixon was doing well throughout the detox mr dixon was found sitting on floor because he try to sitting on a chair to release his muscle aches treated with robaxin denies sequela mr dixon has long history of hypertension treated with clonidine 0.3 mg po tid last dose around Jun 2019 currently taking amlodipine and lisinopril tolerated well mr dixon has completed the librium regiment and is tolerated well General Appearance: Yes: No Apparent Distress, Nourished, Appropriately Dressed, mild Tremorous, mild Anxious HEENTM: Yes: EOMI, Hearing grossly Normal, Normocephalic, Normal Voice Respiratory: Yes: Lungs Clear, Normal Breath Sounds, No Respiratory Distress, No Accessory Muscle Use Neck: Yes: No masses,lesions,Nodules, Supple Breast: Yes: Breast Exam Deferred Cardiology: Yes: Regular Rhythm, Regular Rate Abdominal: Yes: Normal Bowel Sounds, Non Tender, Flat, Soft Genitourinary: Yes: Other (deferred) Back: Yes: Normal Inspection Musculoskeletal: Yes: full range of Motion, Gait Steady Extremities: Yes: Normal Inspection, Normal Range of Motion, Non-Tender, Tremors Neurological: Yes: Fully Oriented, Alert, Motor Strength 5/5 Integumentary: Yes: Normal Color, Dry, Warm, Other (bilateral hands very dry) Pertinent Past History: time for discharge 47 minutes transferred order set from detox to rehab - Physical Exam Results Vital Signs: Vital Signs Temperature 96.8 F L 03/18/20 09:16 Pulse Rate 72 03/18/20 09:16 Respiratory Rate 18 03/18/20 09:16 Blood Pressure 126/72 03/18/20 09:16 O2 Sat by Pulse Oximetry (%) 98 03/18/20 09:16 Pertinent Admission Physical Exam Findings: alcohol and benzo withdrawal Laboratory Tests 03/13/20 03/14/20 03/14/20 17:20 07:35 07:35 WBC 7.8 RBC 4.13 Hgb 11.2 L Hct 34.5 L MCV 83.6 MCH 27.1 MCHC 32.4 RDW 14.3 Plt Count 216 MPV 9.0 Sodium 143 Potassium 3.9 Chloride 110 H Carbon Dioxide 29 Anion Gap 4 L BUN 15.8 Creatinine 1.2 Est GFR (CKD-EPI)AfAm 77.88 Est GFR (CKD-EPI)NonAf 67.19 Random Glucose 104 Calcium 8.7 Total Bilirubin 0.6 AST 24 ALT 25 Alkaline Phosphatase 71 Total Protein 6.4 Albumin 3.5 Syphilis Serology RPR Titer COVID-19 (CHELLE) Not detected 03/14/20 03/14/20 07:35 07:35 WBC RBC Hgb Hct MCV MCH MCHC RDW Plt Count MPV Sodium Potassium Chloride Carbon Dioxide Anion Gap BUN Creatinine Est GFR (CKD-EPI)AfAm Est GFR (CKD-EPI)NonAf Random Glucose Calcium Total Bilirubin AST ALT Alkaline Phosphatase Total Protein Albumin Syphilis Serology Reactive A* RPR Titer Reactive 1:1 H D COVID-19 (CHELLE) Vital Signs - 24 hr 03/17/20 03/17/20 03/17/20 13:03 16:32 20:40 Temperature 97.3 F L 96.9 F L 98.2 F Pulse Rate 80 70 77 Respiratory 20 18 18 Rate Blood Pressure 150/96 154/97 168/86 O2 Sat by Pulse 97 98 Oximetry (%) 03/18/20 03/18/20 06:41 09:16 Temperature 97.1 F L 96.8 F L Pulse Rate 65 72 Respiratory 18 18 Rate Blood Pressure 138/92 126/72 O2 Sat by Pulse 98 98 Oximetry (%) syphilis reactive unable to remember treatment first penicillin IM on 03/16/20 - Treatment Hospital Course: Detox Protocol Followed, Detoxed Safely, Responded well, Disc harged Condition Good, Rehab Referral Accepted Patient has Accepted a [facility] Referral [facility] - Medication Discharge Medications: Ambulatory Orders Quetiapine Fumarate [Seroquel -] 300 mg PO HS 04/20/16 Albuterol Sulfate Inhaler - [Ventolin HFA Inhaler -] 2 puff IH Q4H PRN #1 inhaler 08/23/16 Clonidine HCl [Catapres] 0.3 mg PO TID 06/15/18 Quetiapine Fumarate "Xr" [Seroquel XR] 200 mg PO HS 06/16/18 - Diagnosis (1) Syphilis contact, untreated Current Visit: Yes Status: Chronic (2) HTN (hypertension) Current Visit: Yes Status: Chronic Qualifiers: Hypertension type: essential hypertension Qualified Code(s): I10 - Essential (primary) hypertension (3) Alcohol dependence with withdrawal Current Visit: Yes Status: Acute Qualifiers: Complication of substance-induced condition: uncomplicated Qualified Code(s): F10.230 - Alcohol dependence with withdrawal, uncomplicated (4) Nicotine dependence Current Visit: Yes Status: Acute Qualifiers: Nicotine product type: cigarettes Substance use status: in withdrawal Qualified Code(s): F17.213 - Nicotine dependence, cigarettes, with withdrawal (5) Asthma Current Visit: Yes Status: Chronic Qualifiers: Asthma severity: mild Asthma persistence: intermittent Asthma complication type: uncomplicated Qualified Code(s): J45.20 - Mild intermittent asthma, uncomplicated (6) Methadone maintenance therapy patient Current Visit: Yes Status: Chronic - AMA Did Patient Leave Against Medical Advice: No CIWA Score - CIWA Score Nausea/Vomitin-No Nausea/No Vomiting Muscle Tremors: 1-None Visible, but Onia Anxiety: 0-No Anxiety, at Ease Agitation: 0-Normal Activity Paroxysmal Sweats: No Perspiration Orientation: 0-Oriented Tacttile Disturbances: 0-None Auditory Disturbances: 0-None Visual Disturbances: 0-None Headache: 0-None Present CIWA-Ar Total Score: 1
[2020-03-18 13:04] VITALS: BP 124/67; PULSE 74; TEMP 97.4
== END 2020-03-18 16:13 | disposition other institution (70) | DRG 773 ==
LOC: YASAS 15:04 → Y3N 17:00
PROVIDERS: ADMIT Allergy & Immunology; ATTEND Allergy & Immunology
PROC: HZ2ZZZZ Detoxification Services for Substance Abuse Treatment (ICD-10-PCS; principal; 2020-03-13)
DX: F10.230 Alcohol dependence with withdrawal, uncomplicated (principal); F13.230 Sedative, hypnotic or anxiolytic dependence with withdrawal, uncomplicated; F11.20 Opioid dependence, uncomplicated; F14.20 Cocaine dependence, uncomplicated; F17.210 Nicotine dependence, cigarettes, uncomplicated; F19.24 Other psychoactive substance dependence with psychoactive substance-induced mood disorder; F41.9 Anxiety disorder, unspecified; F32.9 Major depressive disorder, single episode, unspecified; G47.00 Insomnia, unspecified; I10 Essential (primary) hypertension; E78.5 Hyperlipidemia, unspecified; J45.20 Mild intermittent asthma, uncomplicated; A53.9 Syphilis, unspecified
CPT/HCPCS: 36415; 71046-TC-FY; 80053; 85027; 86593; 86780; 93005; 93010; J0735; U0003

== ENCOUNTER 2020-03-18 16:37 | Inpatient (IN) | payer OTHER ==
--- NOTE | 2020-03-18 11:19 | HP ---
[facility] Rehab Assess/Revision - Admission History Admitted to Rehab from: [facility] Date of Admission to Rehab: 03/18/20 - Findings Detox History & Physical reviewed: Yes Concur with findings: Yes Comments/Additional Findings: transferred from detox to rehab admission as per protocol Inpatient Rehab Admission - Rehab Decision to Admit Inpatient rehab admission?: Yes - Initial Determination Are CD services needed?: Yes Free of communicable disease: Yes Not in need of hospitalization: Yes - Rehab Admission Criteria Previous failed treatment: Yes Poor recovery environment: Yes Comorbidities: Yes Lacks judgement: Yes Patient is meeting Inpatient Rehab admission criteria:: Yes
[~2020-03-18 16:37] MED LIST: ALBUTEROL SO4 HFA INHALER IH PRN; LOPERAMIDE HCL 2 MG CAPSULE PO PRN; MAG HYDROX/AL HYDROX/SIMETH 30 ML UNIT-DOSE CUP PO PRN; MAGNESIUM CITRATE 300 ML BOTTLE PO PRN; MAGNESIUM HYDROX 2400MG/30ML ORAL SUSPENSION 30 ML CUP PO PRN; NICOTINE POLACRILEX 4 MG GUM BC PRN; P-EPHED 60MG/TRIPROLIDI 2.5MG TABLET PO PRN; guaiFENesin 200 MG/10 ML 10 ML UNIT-DOSE CUPS PO PRN
[2020-03-18] MEDS: IBUPROFEN 400 MG TABLET (FP) PO PRN (17:31)
[2020-03-18] MEDS: THIAMINE HCL 100 MG TABLET (FP) PO SCH (21:25)
[2020-03-18] MEDS: MELATONIN 5 MG TABLETS PO SCH (21:25)
[2020-03-18] MEDS: LISINOPRIL 5 MG TABLET PO SCH (21:25)
[2020-03-19] MEDS: METHADONE HCL 40 MG DISPERSABLE TABLET PO SCH (06:30)
[2020-03-19] MEDS: LIDOCAINE 5% TOPICAL PATCH TP SCH (09:33)
[2020-03-19] MEDS: NICOTINE 21 MG/24 HOURS TOPICAL PATCH TD SCH (09:33)
[2020-03-19] MEDS: LISINOPRIL 5 MG TABLET PO SCH ×2 (09:34→21:29)
[2020-03-19] MEDS: PRENATAL VITAMINS W/ FOLIC ACID TABLET (FP) PO SCH (09:34)
[2020-03-19] MEDS: amLODIPine BESYLATE 10 MG TABLET (FP) PO SCH (09:34)
[2020-03-19] MEDS: PETROLATUM, WHITE 30 GM TUBE TP SCH (10:23)
[2020-03-19] MEDS: IBUPROFEN 400 MG TABLET (FP) PO PRN (15:50)
--- NOTE | 2020-03-19 16:38 | CONSULT ---
[facility] Psychiatric Consult - Data Date of interview: 03/19/20 Admission source: [facility] Identifying data: Patient is a 54 year old single black male, father of three (one of his children ), unemployed, domiciled, and is supported with [facility]. This is one of multiple admissions for patient. Patient admitted to for alcohol, cocaine, and opiate dependence. Substance Abuse History: Substance Use History. Alcohol. Substance amount: 1 pint vodka. Frequency of use: Daily. Substance route: Oral. Date of Last Use: 03/12/20 (started age 18). Heroin. Substance amount: 2 bags. Frequency of use: Daily. Substance route: Inhalation (ex: sniffing or snorting). Date of Last Use: 03/13/20 (started age 18). Cocaine-Crack. Substance amount: $70. Frequency of use: Daily. Substance route: Smoking. Date of Last Use: 03/13/20 (started age 16). Nicotine. Substance amount: 1 pack. Frequency of use: Daily. Substance route: Smoking. Date of Last Use: 03/13/20 (started age 13). Klonopin. Substance amount: 1mg 2 tabs. Frequency of use: Daily. Substance route: Oral. Date of Last Use: 03/13/20 (prescribed by psychiatrist) Medical History: Asthma, hypertension, hyperlipidmia Psychiatric History: Mr. murphy h/o psychiatric hospitalizations and suicide attempt. Mr. Werner states that he has been receiving outpatient psychiatric care for two years at [facility] and is currently prescribed klonopin 1mg daily. He was prescribed zoloft 100mg + seroquel 300mg XR but states that the psychiatrist discontinued those medications. At present patient reports difficulty sleeping and is requesting a medication for anxiety. Physical/Sexual Abuse/Trauma History: denies. Mental Status Exam - Mental Status Exam Alert and Oriented to: Time, Place, Person Cognitive Function: Good Patient Appearance: Well Groomed Mood: Withdrawn Affect: Mood Congruent Patient Behavior: Cooperative Speech Pattern: Appropriate Voice Loudness: Normal Thought Process: Goal Oriented Thought Disorder: Not Present Hallucinations: Denies Suicidal Ideation: Denies Homicidal Ideation: Denies Insight/Judgement: Poor Sleep: Poorly Appetite: Fair Muscle strength/Tone: Normal Gait/Station: Normal Psychiatric Findings - Problem List ([place] 1, 2,3) (1) Alcohol use disorder Current Visit: Yes Status: Acute (2) Opioid dependence Current Visit: Yes Status: Acute (3) Cocaine dependence Current Visit: Yes Status: Acute (4) Substance-induced sleep disorder Current Visit: Yes Status: Acute (5) Methadone maintenance therapy patient Current Visit: Yes Status: Chronic - Initial Treatment Plan Initial Treatment Plan: Psychoeducation provided. Rehab in progress. Will order Belsomra 10mg HS PRN + Vistaril 50mg q6h PRN for anxiety. Benefits and side effects discussed. Verbal consent given.
[2020-03-19] MEDS: SUVOREXANT 10 MG TABLET PO PRN (21:29)
[2020-03-19] MEDS: hydrOXYzine PAMOATE 50 MG CAPSULE (FP) PO PRN (21:29)
[2020-03-19] MEDS: LIDOCAINE PATCH REMOVAL MC SCH (21:29)
[2020-03-19] MEDS: MELATONIN 5 MG TABLETS PO SCH (21:29)
[2020-03-19] MEDS: THIAMINE HCL 100 MG TABLET (FP) PO SCH (21:29)
[2020-03-20] MEDS: METHADONE HCL 40 MG DISPERSABLE TABLET PO SCH (08:39)
[2020-03-20] MEDS: NICOTINE 21 MG/24 HOURS TOPICAL PATCH TD SCH (10:22)
[2020-03-20] MEDS: amLODIPine BESYLATE 10 MG TABLET (FP) PO SCH (10:22)
[2020-03-20] MEDS: LIDOCAINE 5% TOPICAL PATCH TP SCH (10:22)
[2020-03-20] MEDS: PRENATAL VITAMINS W/ FOLIC ACID TABLET (FP) PO SCH (10:23)
[2020-03-20] MEDS: LISINOPRIL 5 MG TABLET PO SCH ×2 (10:23→21:47)
[2020-03-20] MEDS: PETROLATUM, WHITE 30 GM TUBE TP SCH (10:55)
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
[2020-03-20] MEDS: IBUPROFEN 400 MG TABLET (FP) PO PRN (14:18)
[2020-03-20] MEDS: METHYL SALICYLATE/MENTHOL OINT 30 GM TUBE TP SCH (21:46)
[2020-03-20] MEDS: hydrOXYzine PAMOATE 50 MG CAPSULE (FP) PO PRN (21:46)
[2020-03-20] MEDS: MELATONIN 5 MG TABLETS PO SCH (21:47)
[2020-03-20] MEDS: SUVOREXANT 10 MG TABLET PO PRN (21:47)
[2020-03-20] MEDS: LIDOCAINE PATCH REMOVAL MC SCH (21:47)
[2020-03-20] MEDS: THIAMINE HCL 100 MG TABLET (FP) PO SCH (21:47)
[2020-03-21] MEDS: METHADONE HCL 40 MG DISPERSABLE TABLET PO SCH (06:23)
[2020-03-21] MEDS ORDERED: MASKS NR ONE (07:59)
[2020-03-21] MEDS: LIDOCAINE 5% TOPICAL PATCH TP SCH (10:12)
[2020-03-21] MEDS: NICOTINE 21 MG/24 HOURS TOPICAL PATCH TD SCH (10:12)
[2020-03-21] MEDS: LISINOPRIL 5 MG TABLET PO SCH ×2 (10:13→21:33)
[2020-03-21] MEDS: amLODIPine BESYLATE 10 MG TABLET (FP) PO SCH (10:13)
[2020-03-21] MEDS: PRENATAL VITAMINS W/ FOLIC ACID TABLET (FP) PO SCH (10:13)
[2020-03-21] MEDS: PETROLATUM, WHITE 30 GM TUBE TP SCH (10:14)
[2020-03-21] MEDS: ACETAMINOPHEN 325 MG TABLET (FP) PO PRN (18:45)
[2020-03-21] MEDS: MELATONIN 5 MG TABLETS PO SCH (21:32)
[2020-03-21] MEDS: LIDOCAINE PATCH REMOVAL MC SCH (21:32)
[2020-03-21] MEDS: hydrOXYzine PAMOATE 50 MG CAPSULE (FP) PO PRN (21:32)
[2020-03-21] MEDS: METHYL SALICYLATE/MENTHOL OINT 30 GM TUBE TP SCH (21:32)
[2020-03-21] MEDS: SUVOREXANT 10 MG TABLET PO PRN (21:33)
[2020-03-21] MEDS: METHOCARBAMOL 500 MG TABLET PO PRN (21:33)
[2020-03-21] MEDS: THIAMINE HCL 100 MG TABLET (FP) PO SCH (21:34)
[2020-03-22] MEDS: METHADONE HCL 40 MG DISPERSABLE TABLET PO SCH (06:12)
[2020-03-22] MEDS: PRENATAL VITAMINS W/ FOLIC ACID TABLET (FP) PO SCH (09:51)
[2020-03-22] MEDS: LIDOCAINE 5% TOPICAL PATCH TP SCH (09:52)
[2020-03-22] MEDS: amLODIPine BESYLATE 10 MG TABLET (FP) PO SCH (09:52)
[2020-03-22] MEDS: LISINOPRIL 5 MG TABLET PO SCH ×2 (09:52→21:14)
[2020-03-22] MEDS: NICOTINE 21 MG/24 HOURS TOPICAL PATCH TD SCH (09:52)
[2020-03-22] MEDS: PETROLATUM, WHITE 30 GM TUBE TP SCH (11:47)
[2020-03-22] MEDS: IBUPROFEN 400 MG TABLET (FP) PO PRN ×2 (13:26→21:15)
[2020-03-22] MEDS: hydrOXYzine PAMOATE 50 MG CAPSULE (FP) PO PRN (21:14)
[2020-03-22] MEDS: MELATONIN 5 MG TABLETS PO SCH (21:14)
[2020-03-22] MEDS: LIDOCAINE PATCH REMOVAL MC SCH (21:14)
[2020-03-22] MEDS: METHOCARBAMOL 500 MG TABLET PO PRN (21:14)
[2020-03-22] MEDS: METHYL SALICYLATE/MENTHOL OINT 30 GM TUBE TP SCH (21:16)
[2020-03-22] MEDS: THIAMINE HCL 100 MG TABLET (FP) PO SCH (21:16)
[2020-03-22] MEDS ORDERED: SUVOREXANT 10 MG TABLET PO PRN (22:00)
[2020-03-23] MEDS: METHADONE HCL 40 MG DISPERSABLE TABLET PO SCH (06:16)
[2020-03-23] MEDS: IBUPROFEN 400 MG TABLET (FP) PO PRN ×3 (08:39→21:25)
[2020-03-23] MEDS: LISINOPRIL 5 MG TABLET PO SCH ×2 (09:46→21:25)
[2020-03-23] MEDS: NICOTINE 21 MG/24 HOURS TOPICAL PATCH TD SCH (09:46)
[2020-03-23] MEDS: amLODIPine BESYLATE 10 MG TABLET (FP) PO SCH (09:46)
[2020-03-23] MEDS: PRENATAL VITAMINS W/ FOLIC ACID TABLET (FP) PO SCH (09:46)
[2020-03-23] MEDS: LIDOCAINE 5% TOPICAL PATCH TP SCH (09:47)
[2020-03-23] MEDS: PETROLATUM, WHITE 30 GM TUBE TP SCH (09:48)
[2020-03-23] MEDS ORDERED: PENICILLIN G BENZATHINE 2,400,000 UNIT/4 ML PFS IM ONE (11:00)
[2020-03-23] MEDS: MELATONIN 5 MG TABLETS PO SCH (21:25)
[2020-03-23] MEDS: METHOCARBAMOL 500 MG TABLET PO PRN (21:25)
[2020-03-23] MEDS: THIAMINE HCL 100 MG TABLET (FP) PO SCH (21:25)
[2020-03-23] MEDS: hydrOXYzine PAMOATE 50 MG CAPSULE (FP) PO PRN (21:25)
[2020-03-23] MEDS: METHYL SALICYLATE/MENTHOL OINT 30 GM TUBE TP SCH (21:26)
[2020-03-23] MEDS: LIDOCAINE PATCH REMOVAL MC SCH (21:26)
[2020-03-24] MEDS: METHADONE HCL 40 MG DISPERSABLE TABLET PO SCH (06:00)
[2020-03-24] MEDS: NICOTINE 21 MG/24 HOURS TOPICAL PATCH TD SCH (10:59)
[2020-03-24] MEDS: LISINOPRIL 5 MG TABLET PO SCH ×2 (10:59→21:25)
[2020-03-24] MEDS: PRENATAL VITAMINS W/ FOLIC ACID TABLET (FP) PO SCH (10:59)
[2020-03-24] MEDS: amLODIPine BESYLATE 10 MG TABLET (FP) PO SCH (10:59)
[2020-03-24] MEDS: LIDOCAINE 5% TOPICAL PATCH TP SCH (10:59)
[2020-03-24] MEDS: PETROLATUM, WHITE 30 GM TUBE TP SCH (11:00)
[2020-03-24] MEDS: IBUPROFEN 400 MG TABLET (FP) PO PRN ×2 (11:00→21:28)
[2020-03-24] MEDS: METHOCARBAMOL 500 MG TABLET PO PRN ×2 (13:13→21:27)
--- NOTE | 2020-03-24 15:12 | PN ---
[facility] Progress Note Note: Pt requesting xray of shoulder today. Pt reports neck pain is resolved but left shoulder still with some pain. Vital Signs - 24 hr 03/23/20 03/23/20 03/24/20 20:30 21:58 07:38 Temperature 97.3 F L Pulse Rate 77 73 Respiratory 18 Rate Blood Pressure 130/76 111/78 O2 Sat by Pulse 97 97 Oximetry (%) 03/24/20 03/24/20 09:16 15:06 Temperature Pulse Rate 70 Respiratory 18 Rate Blood Pressure 137/78 O2 Sat by Pulse 98 Oximetry (%) Alert o x 3 nad oob ambulating with steady gait left Shoulder:Active FROM. Pain left shoulder Xray left shoulder today
[2020-03-24] MEDS: LIDOCAINE PATCH REMOVAL MC SCH (21:25)
[2020-03-24] MEDS: METHYL SALICYLATE/MENTHOL OINT 30 GM TUBE TP SCH (21:25)
[2020-03-24] MEDS: MELATONIN 5 MG TABLETS PO SCH (21:25)
[2020-03-24] MEDS: THIAMINE HCL 100 MG TABLET (FP) PO SCH (21:26)
[2020-03-25] MEDS: METHADONE HCL 40 MG DISPERSABLE TABLET PO SCH (06:01)
[2020-03-25] MEDS: IBUPROFEN 400 MG TABLET (FP) PO PRN ×2 (06:03→21:36)
[2020-03-25] MEDS: hydrOXYzine PAMOATE 50 MG CAPSULE (FP) PO PRN ×2 (10:28→21:35)
[2020-03-25] MEDS: amLODIPine BESYLATE 10 MG TABLET (FP) PO SCH (10:28)
[2020-03-25] MEDS: PRENATAL VITAMINS W/ FOLIC ACID TABLET (FP) PO SCH (10:28)
[2020-03-25] MEDS: LISINOPRIL 5 MG TABLET PO SCH ×2 (10:28→21:35)
[2020-03-25] MEDS: METHOCARBAMOL 500 MG TABLET PO PRN ×2 (10:28→21:35)
[2020-03-25] MEDS: LIDOCAINE 5% TOPICAL PATCH TP SCH (10:29)
[2020-03-25] MEDS: PETROLATUM, WHITE 30 GM TUBE TP SCH (10:29)
[2020-03-25] MEDS: NICOTINE 21 MG/24 HOURS TOPICAL PATCH TD SCH (10:29)
[2020-03-25] MEDS: ACETAMINOPHEN 325 MG TABLET (FP) PO PRN (10:30)
--- NOTE | 2020-03-25 11:46 | PN ---
[facility] Progress Note Note: xray left shoulder reviewed:wnl- No acute left shoulder pathology. Vital Signs - 24 hr 03/24/20 03/24/20 03/25/20 15:06 20:35 05:54 Temperature 97.2 F L 97.7 F Pulse Rate 63 83 Respiratory 18 18 Rate Blood Pressure 133/76 142/76 O2 Sat by Pulse 98 96 97 Oximetry (%)
--- NOTE | 2020-03-25 16:10 | PN ---
[facility] Progress Note Note: Psychiatric nurse practitioner note: Patient reports poor sleep despite accepting belsomra 10mg HS. 1) Will d/c belsomra 10mg HS. 2) Will order Belsomra 15mg HS . Verbal consent given.
[2020-03-25] MEDS: THIAMINE HCL 100 MG TABLET (FP) PO SCH (21:35)
[2020-03-25] MEDS: MELATONIN 5 MG TABLETS PO SCH (21:35)
[2020-03-25] MEDS ORDERED: SUVOREXANT 10 MG TABLET PO PRN (22:00)
[2020-03-25] MEDS: LIDOCAINE PATCH REMOVAL MC SCH (22:13)
[2020-03-25] MEDS: METHYL SALICYLATE/MENTHOL OINT 30 GM TUBE TP SCH (22:13)
[2020-03-26] MEDS: IBUPROFEN 400 MG TABLET (FP) PO PRN ×2 (05:40→21:38)
[2020-03-26] MEDS: METHOCARBAMOL 500 MG TABLET PO PRN ×2 (05:41→21:40)
[2020-03-26] MEDS: METHADONE HCL 40 MG DISPERSABLE TABLET PO SCH (05:41)
[2020-03-26] MEDS: LIDOCAINE 5% TOPICAL PATCH TP SCH (10:42)
[2020-03-26] MEDS: NICOTINE 21 MG/24 HOURS TOPICAL PATCH TD SCH (10:43)
[2020-03-26] MEDS: PETROLATUM, WHITE 30 GM TUBE TP SCH (10:43)
[2020-03-26] MEDS: amLODIPine BESYLATE 10 MG TABLET (FP) PO SCH (10:43)
[2020-03-26] MEDS: LISINOPRIL 5 MG TABLET PO SCH ×2 (10:43→21:39)
[2020-03-26] MEDS: PRENATAL VITAMINS W/ FOLIC ACID TABLET (FP) PO SCH (10:43)
[2020-03-26] MEDS: SUVOREXANT 15 MG TABLET PO PRN (21:38)
[2020-03-26] MEDS: THIAMINE HCL 100 MG TABLET (FP) PO SCH (21:39)
[2020-03-26] MEDS: hydrOXYzine PAMOATE 50 MG CAPSULE (FP) PO PRN (21:39)
[2020-03-26] MEDS: MELATONIN 5 MG TABLETS PO SCH (21:41)
[2020-03-26] MEDS: LIDOCAINE PATCH REMOVAL MC SCH (21:41)
[2020-03-26] MEDS: METHYL SALICYLATE/MENTHOL OINT 30 GM TUBE TP SCH (21:41)
[2020-03-27] MEDS: METHADONE HCL 40 MG DISPERSABLE TABLET PO SCH (06:04)
[2020-03-27] MEDS: IBUPROFEN 400 MG TABLET (FP) PO PRN ×2 (06:05→21:27)
[2020-03-27] MEDS: METHOCARBAMOL 500 MG TABLET PO PRN ×2 (06:06→21:27)
[2020-03-27] MEDS: hydrOXYzine PAMOATE 50 MG CAPSULE (FP) PO PRN ×2 (09:23→21:27)
[2020-03-27] MEDS: PRENATAL VITAMINS W/ FOLIC ACID TABLET (FP) PO SCH (09:23)
[2020-03-27] MEDS: amLODIPine BESYLATE 10 MG TABLET (FP) PO SCH (09:23)
[2020-03-27] MEDS: LISINOPRIL 5 MG TABLET PO SCH ×2 (09:23→21:27)
[2020-03-27] MEDS: LIDOCAINE 5% TOPICAL PATCH TP SCH (09:24)
[2020-03-27] MEDS: NICOTINE 21 MG/24 HOURS TOPICAL PATCH TD SCH (09:25)
[2020-03-27] MEDS: PETROLATUM, WHITE 30 GM TUBE TP SCH (09:25)
[2020-03-27] MEDS: SUVOREXANT 15 MG TABLET PO PRN (21:27)
[2020-03-27] MEDS: LIDOCAINE PATCH REMOVAL MC SCH (21:28)
[2020-03-27] MEDS: MELATONIN 5 MG TABLETS PO SCH (21:28)
[2020-03-27] MEDS: METHYL SALICYLATE/MENTHOL OINT 30 GM TUBE TP SCH (21:28)
[2020-03-27] MEDS: THIAMINE HCL 100 MG TABLET (FP) PO SCH (21:29)
[2020-03-28] MEDS: METHADONE HCL 40 MG DISPERSABLE TABLET PO SCH (05:53)
[2020-03-28] MEDS: IBUPROFEN 400 MG TABLET (FP) PO PRN ×2 (05:54→21:15)
[2020-03-28] MEDS: METHOCARBAMOL 500 MG TABLET PO PRN ×2 (05:55→21:15)
[2020-03-28] MEDS: amLODIPine BESYLATE 10 MG TABLET (FP) PO SCH (10:21)
[2020-03-28] MEDS: PRENATAL VITAMINS W/ FOLIC ACID TABLET (FP) PO SCH (10:21)
[2020-03-28] MEDS: LIDOCAINE 5% TOPICAL PATCH TP SCH (10:22)
[2020-03-28] MEDS: NICOTINE 21 MG/24 HOURS TOPICAL PATCH TD SCH (10:22)
[2020-03-28] MEDS: LISINOPRIL 5 MG TABLET PO SCH ×2 (10:23→21:15)
[2020-03-28] MEDS: PETROLATUM, WHITE 30 GM TUBE TP SCH (10:23)
[2020-03-28] MEDS ORDERED: SUVOREXANT 15 MG TABLET PO PRN (13:13)
[2020-03-28] MEDS: SUVOREXANT 15 MG TABLET PO PRN (21:15)
[2020-03-28] MEDS: hydrOXYzine PAMOATE 50 MG CAPSULE (FP) PO PRN (21:15)
[2020-03-28] MEDS: THIAMINE HCL 100 MG TABLET (FP) PO SCH (21:15)
[2020-03-28] MEDS: METHYL SALICYLATE/MENTHOL OINT 30 GM TUBE TP SCH (21:16)
[2020-03-28] MEDS: MELATONIN 5 MG TABLETS PO SCH (21:16)
[2020-03-28] MEDS: LIDOCAINE PATCH REMOVAL MC SCH (21:16)
[2020-03-29] MEDS: IBUPROFEN 400 MG TABLET (FP) PO PRN ×2 (06:06→21:42)
[2020-03-29] MEDS: METHADONE HCL 40 MG DISPERSABLE TABLET PO SCH (06:07)
[2020-03-29] MEDS: METHOCARBAMOL 500 MG TABLET PO PRN ×2 (06:07→21:41)
[2020-03-29] MEDS: PETROLATUM, WHITE 30 GM TUBE TP SCH (10:01)
[2020-03-29] MEDS: PRENATAL VITAMINS W/ FOLIC ACID TABLET (FP) PO SCH (10:01)
[2020-03-29] MEDS: LIDOCAINE 5% TOPICAL PATCH TP SCH (10:01)
[2020-03-29] MEDS: amLODIPine BESYLATE 10 MG TABLET (FP) PO SCH (10:01)
[2020-03-29] MEDS: NICOTINE 21 MG/24 HOURS TOPICAL PATCH TD SCH (10:01)
[2020-03-29] MEDS: LISINOPRIL 5 MG TABLET PO SCH ×2 (10:01→21:41)
[2020-03-29] MEDS: hydrOXYzine PAMOATE 50 MG CAPSULE (FP) PO PRN ×2 (10:04→21:41)
[2020-03-29] MEDS: THIAMINE HCL 100 MG TABLET (FP) PO SCH (21:41)
[2020-03-29] MEDS: METHYL SALICYLATE/MENTHOL OINT 30 GM TUBE TP SCH (21:41)
[2020-03-29] MEDS: MELATONIN 5 MG TABLETS PO SCH (21:42)
[2020-03-29] MEDS: LIDOCAINE PATCH REMOVAL MC SCH (21:42)
[2020-03-30] MEDS ORDERED: METHADONE HCL 40 MG DISPERSABLE TABLET PO SCH (06:00)
[2020-03-30] MEDS: METHOCARBAMOL 500 MG TABLET PO PRN ×2 (06:02→21:48)
[2020-03-30] MEDS: METHADONE HCL 40 MG DISPERSABLE TABLET PO SCH (06:02)
[2020-03-30] MEDS: IBUPROFEN 400 MG TABLET (FP) PO PRN (06:02)
[2020-03-30] MEDS: PRENATAL VITAMINS W/ FOLIC ACID TABLET (FP) PO SCH (10:20)
[2020-03-30] MEDS: amLODIPine BESYLATE 10 MG TABLET (FP) PO SCH (10:20)
[2020-03-30] MEDS: PETROLATUM, WHITE 30 GM TUBE TP SCH (10:21)
[2020-03-30] MEDS: NICOTINE 21 MG/24 HOURS TOPICAL PATCH TD SCH (10:21)
[2020-03-30] MEDS: LISINOPRIL 5 MG TABLET PO SCH ×2 (10:21→21:48)
[2020-03-30] MEDS: LIDOCAINE 5% TOPICAL PATCH TP SCH (10:21)
[2020-03-30] MEDS: THIAMINE HCL 100 MG TABLET (FP) PO SCH (21:47)
[2020-03-30] MEDS: hydrOXYzine PAMOATE 50 MG CAPSULE (FP) PO PRN (21:47)
[2020-03-30] MEDS: MELATONIN 5 MG TABLETS PO SCH (21:48)
[2020-03-30] MEDS: METHYL SALICYLATE/MENTHOL OINT 30 GM TUBE TP SCH (21:48)
[2020-03-30] MEDS: LIDOCAINE PATCH REMOVAL MC SCH (21:48)
[2020-03-30] MEDS ORDERED: SUVOREXANT 15 MG TABLET PO PRN (22:00)
[2020-03-30] MEDS ORDERED: SUVOREXANT 10 MG TABLET PO PRN (22:00)
[2020-03-31] MEDS: IBUPROFEN 400 MG TABLET (FP) PO PRN (05:58)
[2020-03-31] MEDS: METHOCARBAMOL 500 MG TABLET PO PRN (05:59)
[2020-03-31] MEDS: METHADONE HCL 40 MG DISPERSABLE TABLET PO SCH (06:00)
[2020-03-31 06:50] VITALS: BP 119/74; PULSE 80; TEMP 97.5
--- NOTE | 2020-03-31 08:19 | DS ---
[facility] Rehab Discharge Summary - [facility] Rehab Discharge Summary Admission Date: 03/18/20 Discharge Date: 03/31/20 - Discharge Physical Exam Vital Signs: Vital Signs Temperature 97.5 F L 03/31/20 05:31 Pulse Rate 80 03/31/20 05:31 Respiratory Rate 18 03/31/20 05:31 Blood Pressure 119/74 03/31/20 05:31 O2 Sat by Pulse Oximetry (%) 96 03/31/20 05:31 Pertinent Admission Physical Exam Findings: Mr. Werner is a 54 yo gentleman admitted to rehab after detox from alcohol and sedative use disorder. He is on methadone 120 mg daily. PE Gnl: WDWN, in no distress MS: awake, alert, nl languague function Motor: moves limbs well Coordination: nl Gait: steady Home Medication List Medication Instructions Recorded Confirmed Type Quetiapine Fumarate [Seroquel -] 300 mg PO HS 04/20/16 03/13/20 History Clonidine HCl [Catapres] 0.3 mg PO TID 06/15/18 03/13/20 History Quetiapine Fumarate "Xr" [Seroquel 200 mg PO HS 06/16/18 03/13/20 History XR] Active Medications Generic Name Dose Route Start Last Admin Trade Name Freq PRN Reason Stop Dose Admin Acetaminophen 650 mg 03/18/20 11:23 03/25/20 10:30 Tylenol - PO 650 mg Q4H PRN Administration FEVER Al Hydroxide/Mg Hydroxide 30 ml 03/18/20 11:23 Mylanta Oral Suspension - PO Q6H PRN DYSPEPSIA Albuterol Sulfate 2 puff 03/18/20 11:24 Ventolin Hfa Inhaler - IH Q4H PRN SHORT OF BREATH/WHEEZING Amlodipine Besylate 10 mg 03/19/20 10:00 03/30/20 10:20 Norvasc - PO 10 mg DAILY LOC Administration Guaifenesin 10 ml 03/18/20 11:23 Robitussin - PO Q6H PRN COUGH Hydroxyzine Pamoate 50 mg 03/19/20 16:46 03/30/20 21:47 Vistaril - PO 50 mg Q6H PRN Administration ANXIETY Ibuprofen 400 mg 03/18/20 11:23 03/31/20 05:58 Motrin - PO 400 mg Q6H PRN Administration Pain level 4-6 Lidocaine 1 patch 03/19/20 10:00 03/30/20 10:21 Lidoderm Patch - TP 1 patch DAILY LOC Administration Lisinopril 5 mg 03/18/20 22:00 03/30/20 21:48 Prinivil PO 5 mg BID LOC Administration Loperamide HCl 4 mg 03/18/20 11:23 Imodium - PO Q6H PRN DIARRHEA Magnesium Citrate 300 ml 03/18/20 11:23 Citroma - PO Q48H PRN CONSTIPATION Magnesium Hydroxide 30 ml 03/18/20 11:23 Milk Of Magnesia - PO DAILY PRN CONSTIPATION Melatonin 5 mg 03/18/20 22:00 03/30/20 21:48 Melatonin PO 5 mg HS LOC Administration Methadone HCl 120 mg 03/29/20 06:00 03/31/20 06:00 Dolophine - PO 04/05/20 05:59 120 mg DAILY@0600 LOC Administration Methocarbamol 500 mg 03/20/20 15:54 03/31/20 05:59 Robaxin - PO 500 mg TID PRN Administration MUSCLE SPASMS Methyl Salicylate 1 applic 03/20/20 22:00 03/30/20 21:48 Guerrero-Crook - TP Not Given HS LOC Miscellaneous 1 each 03/19/20 22:00 03/30/20 21:48 Lidoderm Patch Removal MC 1 each DAILY@2200 LOC Administration Nicotine 21 mg 03/19/20 10:00 03/30/20 10:21 Nicoderm Patch - TD Not Given DAILY LOC Nicotine Polacrilex 4 mg 03/18/20 11:23 Nicorette Gum - BC Q2H PRN NICOTINE REPLACEMENT RX Penicillin G Benzathine 2,400,000 unit 03/31/20 08:22 Bicillin L-A - IM 03/31/20 08:23 ONCE ONE Petrolatum 1 applic 03/19/20 10:00 03/30/20 10:21 Vaseline TP 1 applic DAILY LOC Administration Multivit/Folic Acid/Iron 1 tab 03/19/20 10:00 03/30/20 10:20 Vitamins (Sjr) - PO 1 tab DAILY LOC Administration Pseudoephedrine/Triprolidine 1 combo 03/18/20 11:23 Actifed - PO TID PRN NASAL CONGESTION Suvorexant 15 mg 03/30/20 22:00 03/30/20 22:14 Belsomra PO 15 mg HS PRN Administration INSOMNIA Thiamine HCl 100 mg 03/18/20 22:00 03/30/20 21:47 Vitamin B1 - PO 100 mg HS LOC Administration Imp 1. Alcohol use disorder 2. Sedative use disorder 3. methadone maintenance 4. Syphilis Plan 1. Outpatient plan: [facility] 2. Methadone maintenance: [facility] 3. Pt to receive injection #3 today of Pen G 2.4 million units prior to discharge, patient s/p 2 previous injections during his detox/rehab stay. - Treatment Discharge Condition: Discharge condition good, Rehabilitated safely, Responded well, Outpatient referral accepted - Medication Discharge Medications: Ambulatory Orders Quetiapine Fumarate [Seroquel -] 300 mg PO HS 04/20/16 Albuterol Sulfate Inhaler - [Ventolin HFA Inhaler -] 2 puff IH Q4H PRN #1 inhaler 08/23/16 Quetiapine Fumarate "Xr" [Seroquel XR] 200 mg PO HS 06/16/18 Clonidine HCl [Catapres] 0.3 mg PO TID 30 Days #90 tablet 03/31/20 - Medication-Assisted Treatment (MAT) Medication-Assisted Treatment (MAT): No - Discharge Instructions Diet, activity, other medical instructions: Diet: Activity: Other medical instructions: - Diagnosis (1) Alcohol use disorder Current Visit: Yes Status: Chronic (2) Methadone maintenance therapy patient Current Visit: Yes Status: Chronic (3) Sedative hypnotic or anxiolytic dependence Current Visit: Yes Status: Chronic (4) Syphilis contact, treated Current Visit: No Status: Acute - AMA Did Patient Leave Against Medical Advice: No
[2020-03-31] MEDS ORDERED: PENICILLIN G BENZATHINE 2,400,000 UNIT/4 ML PFS IM ONE (08:22)
[2020-03-31] MEDS: PRENATAL VITAMINS W/ FOLIC ACID TABLET (FP) PO SCH (09:32)
[2020-03-31] MEDS: NICOTINE 21 MG/24 HOURS TOPICAL PATCH TD SCH (09:32)
[2020-03-31] MEDS: amLODIPine BESYLATE 10 MG TABLET (FP) PO SCH (09:32)
[2020-03-31] MEDS: LISINOPRIL 5 MG TABLET PO SCH (09:32)
[2020-03-31] MEDS: PETROLATUM, WHITE 30 GM TUBE TP SCH (09:33)
[2020-03-31] MEDS: LIDOCAINE 5% TOPICAL PATCH TP SCH (09:35)
== END 2020-03-31 09:44 | disposition other institution (70) | DRG 772 ==
LOC: YASAS 16:37 → Y5N 16:38
PROVIDERS: ADMIT Allergy & Immunology; ATTEND Allergy & Immunology
PROC: HZ42ZZZ Group Counseling for Substance Abuse Treatment, Cognitive-Behavioral (ICD-10-PCS; principal; 2020-03-18)
DX: F10.20 Alcohol dependence, uncomplicated (principal); F14.20 Cocaine dependence, uncomplicated; F13.20 Sedative, hypnotic or anxiolytic dependence, uncomplicated; F17.210 Nicotine dependence, cigarettes, uncomplicated; F11.20 Opioid dependence, uncomplicated; F19.282 Other psychoactive substance dependence with psychoactive substance-induced sleep disorder; F41.9 Anxiety disorder, unspecified; F32.9 Major depressive disorder, single episode, unspecified; E78.5 Hyperlipidemia, unspecified; I10 Essential (primary) hypertension; J45.909 Unspecified asthma, uncomplicated; M25.512 Pain in left shoulder; R76.11 Nonspecific reaction to tuberculin skin test without active tuberculosis; Z18.89 Other specified retained foreign body fragments; T14.8XXA Other injury of unspecified body region, initial encounter; X58.XXXA Exposure to other specified factors, initial encounter; Y93.89 Activity, other specified; Y92.238 Other place in hospital as the place of occurrence of the external cause; Y99.8 Other external cause status
CPT/HCPCS: 73030-TC-LT-FY

== ENCOUNTER 2021-01-15 11:19 | Inpatient (IN) | payer OTHER ==
[2021-01-15 12:49] VITALS: BMI 24.0
[2021-01-15] MEDS ORDERED: P-EPHED 60MG/TRIPROLIDI 2.5MG TABLET PO PRN (13:09)
[2021-01-15] MEDS ORDERED: LOPERAMIDE HCL 2 MG CAPSULE PO PRN (13:09)
[2021-01-15] MEDS ORDERED: guaiFENesin 200 MG/10 ML 10 ML UNIT-DOSE CUPS PO PRN (13:09)
[2021-01-15] MEDS ORDERED: IBUPROFEN 400 MG TABLET (FP) PO PRN (13:09)
[2021-01-15] MEDS ORDERED: MAGNESIUM CITRATE 300 ML BOTTLE PO PRN (13:09)
[2021-01-15] MEDS ORDERED: MAGNESIUM HYDROX 2400MG/30ML ORAL SUSPENSION 30 ML CUP PO PRN (13:09)
[2021-01-15] MEDS ORDERED: ACETAMINOPHEN 325 MG TABLET (FP) PO PRN (13:09)
[2021-01-15] MEDS ORDERED: NICOTINE 10 MG CARTRIDGE (INHALER) IH PRN (13:09)
[2021-01-15] MEDS ORDERED: ALBUTEROL SO4 HFA INHALER IH PRN (13:11)
[2021-01-15] MEDS ORDERED: cloNIDine HCL 0.1 MG TABLET ONE (13:12)
[2021-01-15] MEDS: cloNIDine HCL 0.1 MG TABLET PO SCH ×2 (13:15→22:06)
[2021-01-15 16:25] LABS: ALBUMIN 3.8 g/dl (3.4-5.0); BLOOD UREA NITROGEN 11.8 mg/dL (7-18); CALCIUM 8.8 mg/dL (8.5-10.1)
[2021-01-15 16:27] LABS: CREATININE 1.2 mg/dL (0.55-1.3)
[2021-01-15 16:28] LABS: BILIRUBIN,TOTAL 0.4 mg/dL (0.2-1)
[2021-01-15] MEDS: NICOTINE 7 MG/24 HOURS TOPICAL PATCH TD SCH (16:30)
[2021-01-15] MEDS: NICOTINE 14 MG/24 HOURS TOPICAL PATCH TD SCH (16:30)
[2021-01-15 16:36] LABS: HEMOGLOBIN 12.7 GM/dL (11.7-16.9); MCH 27.2 pg (25.7-33.7); MCHC 33.4 g/dl (32.0-35.9); MEAN CELL VOLUME 81.6 fl (80-96); MEAN PLT VOLUME 8.7 fl (7.5-11.1); PLATELET COUNT 239 10^3/uL (134-434); RBC 4.65 M/mm3 (4.00-5.60); RDW 15.4 % (11.9-15.9); WHITE BLOOD COUNT 8.5 K/mm3 (4.0-10.0)
[2021-01-15] MEDS: hydrOXYzine PAMOATE 25 MG CAPSULE (FP) PO SCH ×2 (18:15→22:07)
[2021-01-15] MEDS ORDERED: methaDONE 40 MG, methaDONE 30 MG PO ONE ×2 (19:33→20:00)
[2021-01-15] MEDS ORDERED: methaDONE HCL 10 MG TABLET PO ONE (19:33)
[2021-01-15] MEDS ORDERED: methaDONE HCL 10 MG TABLET ONE (19:54)
[2021-01-15] MEDS ORDERED: methaDONE HCL 40 MG DISPERSABLE TABLET ONE (19:55)
[2021-01-15] MEDS ORDERED: MELATONIN 5 MG TABLETS PO SCH (22:00)
[2021-01-15] MEDS: THIAMINE HCL 100 MG TABLET (FP) PO SCH (22:07)
[2021-01-15] MEDS: HYDROCORTISONE 0.5% TOPICAL CREAM 30 GM TUBE TP PRN (22:39)
[2021-01-16] MEDS: cloNIDine HCL 0.1 MG TABLET PO SCH ×3 (03:45→21:27)
[2021-01-16] MEDS: hydrOXYzine PAMOATE 25 MG CAPSULE (FP) PO SCH ×6 (05:59→21:27)
[2021-01-16] MEDS ORDERED: methaDONE HCL 10 MG TABLET PO SCH (06:00)
[2021-01-16] MEDS ORDERED: methaDONE HCL 10 MG TABLET ONE (06:01)
[2021-01-16] MEDS ORDERED: methaDONE HCL 40 MG DISPERSABLE TABLET ONE (06:01)
[2021-01-16] MEDS: PRENATAL VITAMINS W/ FOLIC ACID TABLET (FP) PO SCH (10:22)
[2021-01-16] MEDS: NICOTINE 7 MG/24 HOURS TOPICAL PATCH TD SCH (10:22)
[2021-01-16] MEDS: NICOTINE 14 MG/24 HOURS TOPICAL PATCH TD SCH (10:23)
[2021-01-16] MEDS: HYDROCORTISONE 0.5% TOPICAL CREAM 30 GM TUBE TP PRN (10:25)
[2021-01-16] MEDS: THIAMINE HCL 100 MG TABLET (FP) PO SCH (21:27)
[2021-01-16] MEDS: SUVOREXANT 15 MG TABLET PO PRN (23:28)
[2021-01-17] MEDS ORDERED: methaDONE HCL 40 MG DISPERSABLE TABLET ONE (03:23)
[2021-01-17] MEDS ORDERED: methaDONE HCL 10 MG TABLET ONE (03:23)
[2021-01-17] MEDS: cloNIDine HCL 0.1 MG TABLET PO SCH ×3 (06:03→22:02)
[2021-01-17] MEDS: hydrOXYzine PAMOATE 25 MG CAPSULE (FP) PO SCH ×5 (06:03→22:01)
[2021-01-17] MEDS: NICOTINE 14 MG/24 HOURS TOPICAL PATCH TD SCH (10:23)
[2021-01-17] MEDS: NICOTINE 7 MG/24 HOURS TOPICAL PATCH TD SCH (10:23)
[2021-01-17] MEDS: PRENATAL VITAMINS W/ FOLIC ACID TABLET (FP) PO SCH (10:23)
[2021-01-17] MEDS: HYDROCORTISONE 0.5% TOPICAL CREAM 30 GM TUBE TP PRN (10:24)
[2021-01-17] MEDS: THIAMINE HCL 100 MG TABLET (FP) PO SCH (22:01)
[2021-01-17] MEDS: SUVOREXANT 15 MG TABLET PO PRN (22:03)
[2021-01-18] MEDS ORDERED: methaDONE HCL 40 MG DISPERSABLE TABLET ONE (03:18)
[2021-01-18] MEDS ORDERED: methaDONE HCL 10 MG TABLET ONE (03:18)
[2021-01-18] MEDS: cloNIDine HCL 0.1 MG TABLET PO SCH ×3 (06:00→21:50)
[2021-01-18] MEDS: hydrOXYzine PAMOATE 25 MG CAPSULE (FP) PO SCH ×5 (06:02→21:49)
[2021-01-18] MEDS ORDERED: PT OWN MED DRAWER 7, Y5N ONE (07:45)
[2021-01-18] MEDS: NICOTINE 7 MG/24 HOURS TOPICAL PATCH TD SCH (10:03)
[2021-01-18] MEDS: PRENATAL VITAMINS W/ FOLIC ACID TABLET (FP) PO SCH (10:03)
[2021-01-18] MEDS: NICOTINE 14 MG/24 HOURS TOPICAL PATCH TD SCH (10:03)
[2021-01-18] MEDS: SUVOREXANT 15 MG TABLET PO PRN (21:48)
[2021-01-18] MEDS: THIAMINE HCL 100 MG TABLET (FP) PO SCH (21:49)
[2021-01-18] MEDS ORDERED: SUVOREXANT 5 MG TABLET PO PRN (22:00)
[2021-01-19] MEDS ORDERED: methaDONE HCL 40 MG DISPERSABLE TABLET ONE (03:09)
[2021-01-19] MEDS ORDERED: methaDONE HCL 10 MG TABLET ONE (03:09)
[2021-01-19] MEDS: cloNIDine HCL 0.1 MG TABLET PO SCH ×3 (06:05→22:04)
[2021-01-19] MEDS: hydrOXYzine PAMOATE 25 MG CAPSULE (FP) PO SCH ×2 (06:05→10:31)
[2021-01-19] MEDS: PRENATAL VITAMINS W/ FOLIC ACID TABLET (FP) PO SCH (10:31)
[2021-01-19] MEDS: NICOTINE 14 MG/24 HOURS TOPICAL PATCH TD SCH (10:31)
[2021-01-19] MEDS: NICOTINE 7 MG/24 HOURS TOPICAL PATCH TD SCH (10:32)
[2021-01-19] MEDS: THIAMINE HCL 100 MG TABLET (FP) PO SCH (22:05)
[2021-01-20] MEDS ORDERED: methaDONE HCL 10 MG TABLET ONE (03:22)
[2021-01-20] MEDS ORDERED: methaDONE HCL 40 MG DISPERSABLE TABLET ONE (03:23)
[2021-01-20] MEDS: cloNIDine HCL 0.1 MG TABLET PO SCH ×3 (06:01→21:49)
[2021-01-20] MEDS: PRENATAL VITAMINS W/ FOLIC ACID TABLET (FP) PO SCH (10:18)
[2021-01-20] MEDS: hydrOXYzine PAMOATE 25 MG CAPSULE (FP) PO PRN ×2 (10:19→21:49)
[2021-01-20] MEDS: NICOTINE 7 MG/24 HOURS TOPICAL PATCH TD SCH (10:19)
[2021-01-20] MEDS: NICOTINE 14 MG/24 HOURS TOPICAL PATCH TD SCH (10:20)
[2021-01-20] MEDS: HYDROCORTISONE 0.5% TOPICAL CREAM 30 GM TUBE TP PRN (10:46)
[2021-01-20] MEDS: THIAMINE HCL 100 MG TABLET (FP) PO SCH (21:49)
[2021-01-21] MEDS ORDERED: methaDONE HCL 10 MG TABLET ONE (03:04)
[2021-01-21] MEDS ORDERED: methaDONE HCL 40 MG DISPERSABLE TABLET ONE (03:05)
[2021-01-21] MEDS: cloNIDine HCL 0.1 MG TABLET PO SCH ×3 (05:57→21:14)
[2021-01-21] MEDS: NICOTINE 14 MG/24 HOURS TOPICAL PATCH TD SCH (10:49)
[2021-01-21] MEDS: NICOTINE 7 MG/24 HOURS TOPICAL PATCH TD SCH (10:49)
[2021-01-21] MEDS: PRENATAL VITAMINS W/ FOLIC ACID TABLET (FP) PO SCH (10:49)
[2021-01-21] MEDS: HYDROCORTISONE 0.5% TOPICAL CREAM 30 GM TUBE TP PRN (10:50)
[2021-01-21] MEDS: hydrOXYzine PAMOATE 25 MG CAPSULE (FP) PO PRN ×2 (10:51→21:15)
[2021-01-21 15:46] LABS: EPI CELLS 4 /uL (0-25.1); HYALINE CASTS 0 /uL (0-3.1); PH,URINE 5.5 (5.0-8.0); URINE APPEARANCE CLEAR; URINE BACTERIA 6 /uL (0-1359); URINE BILIRUBIN NEGATIVE (NEGATIVE); URINE COLOR YELLOW; URINE GLUCOSE (UA) NEGATIVE (NEGATIVE); URINE KETONE NEGATIVE (NEGATIVE); URINE LEUK ESTERASE NEGATIVE (NEGATIVE); URINE NITRITE NEGATIVE (NEGATIVE); URINE PROTEIN NEGATIVE (NEGATIVE); URINE RBC 26 /uL (0-23.9); URINE UROBILINOGEN 0.2 mg/dL (0.2-1.0); URINE WBC 3 /uL (0-25.8)
[2021-01-21] MEDS: THIAMINE HCL 100 MG TABLET (FP) PO SCH (21:15)
[2021-01-22] MEDS: SUVOREXANT 15 MG TABLET PO PRN ×2 (00:35→22:12)
[2021-01-22] MEDS ORDERED: methaDONE HCL 10 MG TABLET ONE (03:32)
[2021-01-22] MEDS ORDERED: methaDONE HCL 40 MG DISPERSABLE TABLET ONE (03:33)
[2021-01-22] MEDS: cloNIDine HCL 0.1 MG TABLET PO SCH ×3 (06:01→22:13)
[2021-01-22] MEDS ORDERED: PT OWN MED DRAWER 7, Y5N ONE (06:04)
[2021-01-22] MEDS: NICOTINE 14 MG/24 HOURS TOPICAL PATCH TD SCH (10:22)
[2021-01-22] MEDS: PRENATAL VITAMINS W/ FOLIC ACID TABLET (FP) PO SCH (10:22)
[2021-01-22] MEDS: NICOTINE 7 MG/24 HOURS TOPICAL PATCH TD SCH (10:22)
[2021-01-22] MEDS: hydrOXYzine PAMOATE 25 MG CAPSULE (FP) PO PRN ×2 (10:23→22:14)
[2021-01-22] MEDS: THIAMINE HCL 100 MG TABLET (FP) PO SCH (22:13)
[2021-01-23] MEDS ORDERED: methaDONE HCL 10 MG TABLET ONE (05:53)
[2021-01-23] MEDS ORDERED: methaDONE HCL 40 MG DISPERSABLE TABLET ONE (05:53)
[2021-01-23] MEDS: cloNIDine HCL 0.1 MG TABLET PO SCH ×3 (05:54→21:46)
[2021-01-23] MEDS: NICOTINE 7 MG/24 HOURS TOPICAL PATCH TD SCH (10:12)
[2021-01-23] MEDS: PRENATAL VITAMINS W/ FOLIC ACID TABLET (FP) PO SCH (10:13)
[2021-01-23] MEDS: hydrOXYzine PAMOATE 25 MG CAPSULE (FP) PO PRN ×2 (10:13→21:46)
[2021-01-23] MEDS: NICOTINE 14 MG/24 HOURS TOPICAL PATCH TD SCH (10:13)
[2021-01-23] MEDS: HYDROCORTISONE 0.5% TOPICAL CREAM 30 GM TUBE TP PRN (10:15)
[2021-01-23] MEDS ORDERED: PT OWN MED DRAWER 7, Y5N ONE (10:15)
[2021-01-23] MEDS: SUVOREXANT 15 MG TABLET PO PRN (21:46)
[2021-01-23] MEDS: THIAMINE HCL 100 MG TABLET (FP) PO SCH (21:46)
[2021-01-24] MEDS ORDERED: methaDONE HCL 10 MG TABLET ONE (03:33)
[2021-01-24] MEDS ORDERED: methaDONE HCL 40 MG DISPERSABLE TABLET ONE (03:34)
[2021-01-24] MEDS: cloNIDine HCL 0.1 MG TABLET PO SCH ×3 (06:13→21:38)
[2021-01-24] MEDS: PRENATAL VITAMINS W/ FOLIC ACID TABLET (FP) PO SCH (09:27)
[2021-01-24] MEDS: NICOTINE 7 MG/24 HOURS TOPICAL PATCH TD SCH (09:27)
[2021-01-24] MEDS: HYDROCORTISONE 0.5% TOPICAL CREAM 30 GM TUBE TP PRN (09:28)
[2021-01-24] MEDS: hydrOXYzine PAMOATE 25 MG CAPSULE (FP) PO PRN ×2 (09:29→21:37)
[2021-01-24] MEDS: SUVOREXANT 15 MG TABLET PO PRN (21:37)
[2021-01-24] MEDS: THIAMINE HCL 100 MG TABLET (FP) PO SCH (21:37)
[2021-01-25] MEDS: cloNIDine HCL 0.1 MG TABLET PO SCH ×3 (06:06→21:48)
[2021-01-25] MEDS ORDERED: methaDONE HCL 40 MG DISPERSABLE TABLET ONE (06:07)
[2021-01-25] MEDS ORDERED: methaDONE HCL 10 MG TABLET ONE (06:07)
[2021-01-25] MEDS: PRENATAL VITAMINS W/ FOLIC ACID TABLET (FP) PO SCH (10:00)
[2021-01-25] MEDS: hydrOXYzine PAMOATE 25 MG CAPSULE (FP) PO PRN (10:01)
[2021-01-25] MEDS: NICOTINE 7 MG/24 HOURS TOPICAL PATCH TD SCH (10:01)
[2021-01-25] MEDS: HYDROCORTISONE 0.5% TOPICAL CREAM 30 GM TUBE TP PRN (10:02)
[2021-01-25] MEDS: THIAMINE HCL 100 MG TABLET (FP) PO SCH (21:49)
[2021-01-25] MEDS: SUVOREXANT 15 MG TABLET PO PRN (21:50)
[2021-01-26] MEDS ORDERED: methaDONE HCL 10 MG TABLET ONE (04:15)
[2021-01-26] MEDS ORDERED: methaDONE HCL 40 MG DISPERSABLE TABLET ONE (04:15)
[2021-01-26] MEDS: cloNIDine HCL 0.1 MG TABLET PO SCH ×3 (05:49→21:38)
[2021-01-26] MEDS: PRENATAL VITAMINS W/ FOLIC ACID TABLET (FP) PO SCH (10:23)
[2021-01-26] MEDS: NICOTINE 7 MG/24 HOURS TOPICAL PATCH TD SCH (10:23)
[2021-01-26] MEDS: hydrOXYzine PAMOATE 25 MG CAPSULE (FP) PO PRN (10:24)
[2021-01-26] MEDS: HYDROCORTISONE 0.5% TOPICAL CREAM 30 GM TUBE TP PRN (10:24)
[2021-01-26] MEDS: MAG HYDROX/AL HYDROX/SIMETH 30 ML UNIT-DOSE CUP PO PRN ×2 (13:16→19:05)
[2021-01-26] MEDS: THIAMINE HCL 100 MG TABLET (FP) PO SCH (21:39)
[2021-01-26] MEDS: SUVOREXANT 15 MG TABLET PO PRN (21:40)
[2021-01-27] MEDS ORDERED: methaDONE HCL 10 MG TABLET ONE (03:24)
[2021-01-27] MEDS ORDERED: methaDONE HCL 40 MG DISPERSABLE TABLET ONE (03:24)
[2021-01-27] MEDS: MAG HYDROX/AL HYDROX/SIMETH 30 ML UNIT-DOSE CUP PO PRN ×2 (05:58→18:40)
[2021-01-27] MEDS: cloNIDine HCL 0.1 MG TABLET PO SCH ×3 (05:58→21:37)
[2021-01-27] MEDS: PRENATAL VITAMINS W/ FOLIC ACID TABLET (FP) PO SCH (10:21)
[2021-01-27] MEDS: NICOTINE 7 MG/24 HOURS TOPICAL PATCH TD SCH (10:21)
[2021-01-27] MEDS: hydrOXYzine PAMOATE 25 MG CAPSULE (FP) PO PRN ×2 (10:22→21:37)
[2021-01-27] MEDS: HYDROCORTISONE 0.5% TOPICAL CREAM 30 GM TUBE TP PRN (10:23)
[2021-01-27] MEDS: CLOTRIMAZOLE 1% CREAM TP SCH ×2 (14:38→21:37)
[2021-01-27] MEDS ORDERED: PT OWN MED DRAWER 7, Y5N ONE (20:31)
[2021-01-27] MEDS: THIAMINE HCL 100 MG TABLET (FP) PO SCH (21:37)
[2021-01-27] MEDS ORDERED: SUVOREXANT 15 MG TABLET PO ONE (21:57)
[2021-01-28] MEDS ORDERED: methaDONE HCL 10 MG TABLET ONE (03:55)
[2021-01-28] MEDS ORDERED: methaDONE HCL 40 MG DISPERSABLE TABLET ONE (03:56)
[2021-01-28] MEDS: cloNIDine HCL 0.1 MG TABLET PO SCH ×3 (06:21→22:06)
[2021-01-28] MEDS: PRENATAL VITAMINS W/ FOLIC ACID TABLET (FP) PO SCH (10:22)
[2021-01-28] MEDS: NICOTINE 7 MG/24 HOURS TOPICAL PATCH TD SCH (10:22)
[2021-01-28] MEDS: CLOTRIMAZOLE 1% CREAM TP SCH ×2 (10:23→22:06)
[2021-01-28] MEDS: hydrOXYzine PAMOATE 25 MG CAPSULE (FP) PO PRN ×2 (10:23→22:06)
[2021-01-28] MEDS: HYDROCORTISONE 0.5% TOPICAL CREAM 30 GM TUBE TP PRN ×2 (10:25→22:08)
[2021-01-28] MEDS ORDERED: PT OWN MED DRAWER 7, Y5N ONE (18:06)
[2021-01-28] MEDS: THIAMINE HCL 100 MG TABLET (FP) PO SCH (22:06)
[2021-01-29] MEDS ORDERED: methaDONE HCL 40 MG DISPERSABLE TABLET ONE (04:47)
[2021-01-29] MEDS ORDERED: methaDONE HCL 10 MG TABLET ONE (04:47)
[2021-01-29] MEDS: cloNIDine HCL 0.1 MG TABLET PO SCH (05:58)
[2021-01-29 07:25] VITALS: BP 124/73; PULSE 63; TEMP 97.6
[2021-01-29] MEDS: PRENATAL VITAMINS W/ FOLIC ACID TABLET (FP) PO SCH (09:07)
[2021-01-29] MEDS: NICOTINE 7 MG/24 HOURS TOPICAL PATCH TD SCH (09:07)
[2021-01-29] MEDS: CLOTRIMAZOLE 1% CREAM TP SCH (09:07)
== END 2021-01-29 09:20 | disposition home or self-care (01) | DRG 772 ==
LOC: YASAS 11:19 → Y5N 15:40
PROVIDERS: ADMIT Allergy & Immunology; ATTEND Allergy & Immunology
PROC: HZ42ZZZ Group Counseling for Substance Abuse Treatment, Cognitive-Behavioral (ICD-10-PCS; principal; 2021-01-15)
DX: F11.20 Opioid dependence, uncomplicated (principal); F10.20 Alcohol dependence, uncomplicated; F13.20 Sedative, hypnotic or anxiolytic dependence, uncomplicated; F14.20 Cocaine dependence, uncomplicated; F17.210 Nicotine dependence, cigarettes, uncomplicated; F19.282 Other psychoactive substance dependence with psychoactive substance-induced sleep disorder; F19.24 Other psychoactive substance dependence with psychoactive substance-induced mood disorder; F32.9 Major depressive disorder, single episode, unspecified; G47.00 Insomnia, unspecified; E78.5 Hyperlipidemia, unspecified; I10 Essential (primary) hypertension; J45.909 Unspecified asthma, uncomplicated; L85.3 Xerosis cutis; Z86.19 Personal history of other infectious and parasitic diseases
CPT/HCPCS: 36415; 80053; 81003; 85027; 86593; 86780; C9803; J0735; U0003; U0005

== ENCOUNTER 2021-06-13 11:06 | Inpatient (IN) | payer OTHER ==
[2021-06-13 11:56] VITALS: BMI 24.7
[2021-06-13] MEDS ORDERED: ACETAMINOPHEN 325 MG TABLET (FP) PO PRN ×2 (12:31)
[2021-06-13] MEDS ORDERED: MENTHOL/PHENOL 1 EACH UD MM PRN (12:31)
[2021-06-13] MEDS ORDERED: IBUPROFEN 400 MG TABLET (FP) PO PRN (12:31)
[2021-06-13] MEDS ORDERED: MAGNESIUM HYDROX 2400MG/30ML ORAL SUSPENSION 30 ML CUP PO PRN (12:31)
[2021-06-13] MEDS ORDERED: MAGNESIUM CITRATE 300 ML BOTTLE PO PRN (12:31)
[2021-06-13] MEDS ORDERED: ONDANSETRON *ODT* 4 MG TABLET SL PRN (12:31)
[2021-06-13] MEDS ORDERED: BISMUTH SUBSALICYLATE 524 MG/30 ML PO PRN (12:31)
[2021-06-13] MEDS ORDERED: chlordiazePOXIDE HCL 25 MG CAPSULE PO PRN (12:31)
[2021-06-13] MEDS ORDERED: MAG HYDROX/AL HYDROX/SIMETH 30 ML UNIT-DOSE CUP PO PRN (12:31)
[2021-06-13] MEDS: hydrOXYzine PAMOATE 25 MG CAPSULE (FP) PO SCH ×3 (14:44→23:00)
[2021-06-13] MEDS: chlordiazePOXIDE HCL 25 MG CAPSULE PO SCH ×2 (17:46→23:33)
[2021-06-13] MEDS ORDERED: ALBUTEROL SO4 HFA INHALER IH PRN (18:44)
[2021-06-13] MEDS ORDERED: MELATONIN 5 MG TABLETS PO SCH (22:00)
[2021-06-13] MEDS: THIAMINE HCL 100 MG TABLET (FP) PO SCH (23:33)
[2021-06-13] MEDS: cloNIDine HCL 0.1 MG TABLET PO SCH (23:33)
[2021-06-14] MEDS: cloNIDine HCL 0.1 MG TABLET PO SCH ×4 (05:29→22:28)
[2021-06-14] MEDS: hydrOXYzine PAMOATE 25 MG CAPSULE (FP) PO SCH ×6 (05:29→22:28)
[2021-06-14] MEDS: chlordiazePOXIDE HCL 25 MG CAPSULE PO SCH ×5 (05:29→22:27)
[2021-06-14] MEDS ORDERED: methaDONE HCL 10 MG TABLET PO ONE (11:00)
[2021-06-14] MEDS: NICOTINE 21 MG/24 HOURS TOPICAL PATCH TD SCH (11:08)
[2021-06-14] MEDS: PRENATAL VITAMINS W/ FOLIC ACID TABLET (FP) PO SCH (11:08)
[2021-06-14] MEDS ORDERED: methaDONE HCL 40 MG DISPERSABLE TABLET ONE (11:09)
[2021-06-14] MEDS ORDERED: methaDONE HCL 10 MG TABLET ONE (11:09)
[2021-06-14] MEDS: SUVOREXANT 15 MG TABLET PO PRN (22:27)
[2021-06-14] MEDS: THIAMINE HCL 100 MG TABLET (FP) PO SCH (22:27)
[2021-06-15] MEDS: hydrOXYzine PAMOATE 25 MG CAPSULE (FP) PO SCH ×5 (05:27→22:45)
[2021-06-15] MEDS: chlordiazePOXIDE HCL 25 MG CAPSULE PO SCH ×4 (05:28→22:43)
[2021-06-15] MEDS: cloNIDine HCL 0.1 MG TABLET PO SCH ×3 (05:28→22:45)
[2021-06-15] MEDS ORDERED: methaDONE HCL 40 MG DISPERSABLE TABLET ONE (09:49)
[2021-06-15] MEDS ORDERED: methaDONE HCL 10 MG TABLET ONE (09:49)
[2021-06-15] MEDS ORDERED: methaDONE HCL 10 MG TABLET PO ONE (10:00)
[2021-06-15] MEDS: PRENATAL VITAMINS W/ FOLIC ACID TABLET (FP) PO SCH (10:22)
[2021-06-15] MEDS: METHOCARBAMOL 500 MG TABLET PO PRN (10:23)
[2021-06-15] MEDS: NICOTINE 21 MG/24 HOURS TOPICAL PATCH TD SCH (10:25)
[2021-06-15 11:11] LABS: HEMOGLOBIN 10.4 GM/dL (11.7-16.9); MCH 27.3 pg (25.7-33.7); MCHC 32.5 g/dl (32.0-35.9); MEAN CELL VOLUME 84.1 fl (80-96); MEAN PLT VOLUME 8.8 fl (7.5-11.1); PLATELET COUNT 205 10^3/uL (134-434); RDW 14.8 % (11.9-15.9); WHITE BLOOD COUNT 6.1 K/mm3 (4.0-10.0)
[2021-06-15 11:25] LABS: BLOOD UREA NITROGEN 18.4 mg/dL (7-18); CALCIUM 8.4 mg/dL (8.5-10.1)
[2021-06-15 11:30] LABS: BILIRUBIN,TOTAL 0.2 mg/dL (0.2-1); TOT PROT 5.6 g/dl (6.4-8.2)
[2021-06-15] MEDS: THIAMINE HCL 100 MG TABLET (FP) PO SCH (22:44)
[2021-06-16] MEDS ORDERED: chlordiazePOXIDE HCL 10 MG CAPSULE PO PRN
[2021-06-16] MEDS ORDERED: methaDONE HCL 10 MG TABLET ONE (04:11)
[2021-06-16] MEDS ORDERED: methaDONE HCL 40 MG DISPERSABLE TABLET ONE (04:12)
[2021-06-16] MEDS: hydrOXYzine PAMOATE 25 MG CAPSULE (FP) PO SCH ×5 (05:31→22:08)
[2021-06-16] MEDS: cloNIDine HCL 0.1 MG TABLET PO SCH ×3 (05:31→22:08)
[2021-06-16] MEDS: chlordiazePOXIDE HCL 10 MG CAPSULE PO SCH ×2 (05:31→11:30)
[2021-06-16] MEDS ORDERED: methaDONE HCL 10 MG TABLET PO SCH (06:00)
[2021-06-16] MEDS: NICOTINE 10 MG CARTRIDGE (INHALER) IH PRN (09:23)
[2021-06-16] MEDS: PRENATAL VITAMINS W/ FOLIC ACID TABLET (FP) PO SCH (10:06)
[2021-06-16] MEDS: NICOTINE 21 MG/24 HOURS TOPICAL PATCH TD SCH (10:06)
[2021-06-16] MEDS: chlordiazePOXIDE 5 MG CAPSULE PO SCH ×2 (14:09→22:08)
[2021-06-16] MEDS: THIAMINE HCL 100 MG TABLET (FP) PO SCH (22:08)
[2021-06-17] MEDS ORDERED: methaDONE HCL 10 MG TABLET ONE (04:05)
[2021-06-17] MEDS ORDERED: methaDONE HCL 40 MG DISPERSABLE TABLET ONE (04:06)
[2021-06-17] MEDS ORDERED: chlordiazePOXIDE HCL 10 MG CAPSULE PO SCH (05:00)
[2021-06-17] MEDS: cloNIDine HCL 0.1 MG TABLET PO SCH ×3 (05:09→22:24)
[2021-06-17] MEDS: chlordiazePOXIDE 5 MG CAPSULE PO SCH ×2 (05:09→17:45)
[2021-06-17] MEDS: hydrOXYzine PAMOATE 25 MG CAPSULE (FP) PO SCH ×5 (05:09→22:24)
[2021-06-17] MEDS: PRENATAL VITAMINS W/ FOLIC ACID TABLET (FP) PO SCH (10:26)
[2021-06-17] MEDS: NICOTINE 10 MG CARTRIDGE (INHALER) IH PRN (10:27)
[2021-06-17] MEDS: NICOTINE 21 MG/24 HOURS TOPICAL PATCH TD SCH (10:28)
[2021-06-17] MEDS: SUVOREXANT 15 MG TABLET PO PRN (21:55)
[2021-06-17] MEDS: THIAMINE HCL 100 MG TABLET (FP) PO SCH (22:24)
[2021-06-18] MEDS ORDERED: methaDONE HCL 40 MG DISPERSABLE TABLET ONE (04:16)
[2021-06-18] MEDS ORDERED: methaDONE HCL 10 MG TABLET ONE (04:16)
[2021-06-18] MEDS ORDERED: chlordiazePOXIDE 5 MG CAPSULE PO ONE (05:00)
[2021-06-18] MEDS ORDERED: chlordiazePOXIDE HCL 10 MG CAPSULE PO ONE (05:00)
[2021-06-18] MEDS: cloNIDine HCL 0.1 MG TABLET PO SCH (05:07)
[2021-06-18] MEDS: hydrOXYzine PAMOATE 25 MG CAPSULE (FP) PO SCH ×2 (05:07→10:04)
[2021-06-18 09:04] VITALS: BP 120/76; PULSE 69; TEMP 98.2
[2021-06-18] MEDS: PRENATAL VITAMINS W/ FOLIC ACID TABLET (FP) PO SCH (10:04)
[2021-06-18] MEDS: NICOTINE 21 MG/24 HOURS TOPICAL PATCH TD SCH (10:04)
[2021-06-18] MEDS: NICOTINE 10 MG CARTRIDGE (INHALER) IH PRN (10:10)
[2021-06-18] MEDS: METHOCARBAMOL 500 MG TABLET PO PRN (10:41)
== END 2021-06-18 11:30 | disposition other institution (70) | DRG 773 ==
LOC: YASAS 11:06 → Y6N 13:50
PROVIDERS: ADMIT Allergy & Immunology; ATTEND Allergy & Immunology
PROC: HZ2ZZZZ Detoxification Services for Substance Abuse Treatment (ICD-10-PCS; principal; 2021-06-13)
DX: F10.230 Alcohol dependence with withdrawal, uncomplicated (principal); F11.23 Opioid dependence with withdrawal; F14.20 Cocaine dependence, uncomplicated; F17.213 Nicotine dependence, cigarettes, with withdrawal; F19.282 Other psychoactive substance dependence with psychoactive substance-induced sleep disorder; F19.24 Other psychoactive substance dependence with psychoactive substance-induced mood disorder; F32.A Depression, unspecified; E78.5 Hyperlipidemia, unspecified; I10 Essential (primary) hypertension; J45.20 Mild intermittent asthma, uncomplicated; Z56.0 Unemployment, unspecified; Z86.19 Personal history of other infectious and parasitic diseases
CPT/HCPCS: 36415; 71046-TC-FY; 80053; 85027; 86593; 86780; C9803; J0735; U0003; U0005

== ENCOUNTER 2021-06-18 11:40 | Inpatient (IN) | payer OTHER ==
[2021-06-18] MEDS ORDERED: NICOTINE POLACRILEX 4 MG GUM BUC PRN (13:52)
[2021-06-18] MEDS ORDERED: guaiFENesin 200 MG/10 ML 10 ML UNIT-DOSE CUPS PO PRN (13:52)
[2021-06-18] MEDS ORDERED: P-EPHED 60MG/TRIPROLIDI 2.5MG TABLET PO PRN (13:52)
[2021-06-18] MEDS ORDERED: ACETAMINOPHEN 325 MG TABLET (FP) PO PRN (13:52)
[2021-06-18] MEDS ORDERED: MAGNESIUM CITRATE 300 ML BOTTLE PO PRN (13:52)
[2021-06-18] MEDS ORDERED: MAGNESIUM HYDROX 2400MG/30ML ORAL SUSPENSION 30 ML CUP PO PRN (13:52)
[2021-06-18] MEDS ORDERED: IBUPROFEN 400 MG TABLET (FP) PO PRN (13:52)
[2021-06-18] MEDS ORDERED: LOPERAMIDE HCL 2 MG CAPSULE PO PRN (13:52)
[2021-06-18] MEDS ORDERED: ALBUTEROL SO4 HFA INHALER IH PRN (13:54)
[2021-06-18] MEDS: cloNIDine HCL 0.1 MG TABLET PO SCH ×2 (14:23→21:39)
[2021-06-18] MEDS: MELATONIN 5 MG TABLETS PO SCH (21:38)
[2021-06-18] MEDS: THIAMINE HCL 100 MG TABLET (FP) PO SCH (21:39)
[2021-06-18] MEDS: hydrOXYzine PAMOATE 25 MG CAPSULE (FP) PO PRN (21:40)
[2021-06-19] MEDS ORDERED: methaDONE HCL 10 MG TABLET ONE (06:03)
[2021-06-19] MEDS ORDERED: methaDONE HCL 40 MG DISPERSABLE TABLET ONE (06:03)
[2021-06-19] MEDS: cloNIDine HCL 0.1 MG TABLET PO SCH ×3 (06:05→21:45)
[2021-06-19] MEDS: PRENATAL VITAMINS W/ FOLIC ACID TABLET (FP) PO SCH (09:59)
[2021-06-19] MEDS: NICOTINE 21 MG/24 HOURS TOPICAL PATCH TD SCH (10:00)
[2021-06-19] MEDS ORDERED: methaDONE HCL 40 MG DISPERSABLE TABLET PO SCH (10:00)
[2021-06-19] MEDS: MELATONIN 5 MG TABLETS PO SCH (21:45)
[2021-06-19] MEDS: THIAMINE HCL 100 MG TABLET (FP) PO SCH (21:45)
[2021-06-20] MEDS ORDERED: methaDONE HCL 10 MG TABLET ONE (03:07)
[2021-06-20] MEDS ORDERED: methaDONE HCL 40 MG DISPERSABLE TABLET ONE (03:07)
[2021-06-20] MEDS: cloNIDine HCL 0.1 MG TABLET PO SCH ×3 (06:09→21:15)
[2021-06-20] MEDS: NICOTINE 21 MG/24 HOURS TOPICAL PATCH TD SCH (10:10)
[2021-06-20] MEDS: PRENATAL VITAMINS W/ FOLIC ACID TABLET (FP) PO SCH (10:10)
[2021-06-20] MEDS: NICOTINE 10 MG CARTRIDGE (INHALER) IH PRN (10:11)
[2021-06-20] MEDS: hydrOXYzine PAMOATE 25 MG CAPSULE (FP) PO PRN (21:15)
[2021-06-20] MEDS: THIAMINE HCL 100 MG TABLET (FP) PO SCH (21:15)
[2021-06-20] MEDS: MELATONIN 5 MG TABLETS PO SCH (21:16)
[2021-06-21] MEDS ORDERED: methaDONE HCL 10 MG TABLET ONE (03:07)
[2021-06-21] MEDS ORDERED: methaDONE HCL 40 MG DISPERSABLE TABLET ONE (03:07)
[2021-06-21] MEDS: NICOTINE 21 MG/24 HOURS TOPICAL PATCH TD SCH (09:18)
[2021-06-21] MEDS: PRENATAL VITAMINS W/ FOLIC ACID TABLET (FP) PO SCH (09:18)
[2021-06-21] MEDS: cloNIDine HCL 0.1 MG TABLET PO SCH ×2 (09:18→21:37)
[2021-06-21] MEDS: hydrOXYzine PAMOATE 25 MG CAPSULE (FP) PO PRN (21:37)
[2021-06-21] MEDS: THIAMINE HCL 100 MG TABLET (FP) PO SCH (21:37)
[2021-06-21] MEDS: MELATONIN 5 MG TABLETS PO SCH (21:38)
[2021-06-22] MEDS ORDERED: methaDONE HCL 40 MG DISPERSABLE TABLET ONE (03:14)
[2021-06-22] MEDS ORDERED: methaDONE HCL 10 MG TABLET ONE (03:14)
[2021-06-22] MEDS: NICOTINE 21 MG/24 HOURS TOPICAL PATCH TD SCH (09:33)
[2021-06-22] MEDS: PRENATAL VITAMINS W/ FOLIC ACID TABLET (FP) PO SCH (09:33)
[2021-06-22] MEDS: cloNIDine HCL 0.1 MG TABLET PO SCH ×2 (09:33→21:12)
[2021-06-22] MEDS: THIAMINE HCL 100 MG TABLET (FP) PO SCH (21:12)
[2021-06-22] MEDS: MELATONIN 5 MG TABLETS PO SCH (21:12)
[2021-06-23] MEDS ORDERED: methaDONE HCL 10 MG TABLET ONE (03:51)
[2021-06-23] MEDS ORDERED: methaDONE HCL 40 MG DISPERSABLE TABLET ONE (03:51)
[2021-06-23] MEDS: PRENATAL VITAMINS W/ FOLIC ACID TABLET (FP) PO SCH (09:41)
[2021-06-23] MEDS: NICOTINE 10 MG CARTRIDGE (INHALER) IH PRN (09:41)
[2021-06-23] MEDS: NICOTINE 21 MG/24 HOURS TOPICAL PATCH TD SCH (09:41)
[2021-06-23] MEDS: cloNIDine HCL 0.1 MG TABLET PO SCH ×2 (09:41→21:10)
[2021-06-23] MEDS: TOLNAFTATE 1% CREAM 15 GM TUBE TP SCH ×2 (12:04→21:12)
[2021-06-23] MEDS: THIAMINE HCL 100 MG TABLET (FP) PO SCH (21:10)
[2021-06-23] MEDS: MELATONIN 5 MG TABLETS PO SCH (21:11)
[2021-06-23] MEDS: hydrOXYzine PAMOATE 25 MG CAPSULE (FP) PO PRN (21:11)
[2021-06-24] MEDS ORDERED: methaDONE HCL 40 MG DISPERSABLE TABLET ONE (03:05)
[2021-06-24] MEDS ORDERED: methaDONE HCL 10 MG TABLET ONE (03:05)
[2021-06-24] MEDS: PRENATAL VITAMINS W/ FOLIC ACID TABLET (FP) PO SCH (09:38)
[2021-06-24] MEDS: NICOTINE 21 MG/24 HOURS TOPICAL PATCH TD SCH (09:38)
[2021-06-24] MEDS: TOLNAFTATE 1% CREAM 15 GM TUBE TP SCH ×2 (09:38→21:18)
[2021-06-24] MEDS: NICOTINE 10 MG CARTRIDGE (INHALER) IH PRN (09:38)
[2021-06-24] MEDS: cloNIDine HCL 0.1 MG TABLET PO SCH ×2 (09:38→21:18)
[2021-06-24] MEDS: MAG HYDROX/AL HYDROX/SIMETH 30 ML UNIT-DOSE CUP PO PRN (20:09)
[2021-06-24] MEDS: THIAMINE HCL 100 MG TABLET (FP) PO SCH (21:17)
[2021-06-24] MEDS: MELATONIN 5 MG TABLETS PO SCH (21:18)
[2021-06-25] MEDS ORDERED: methaDONE HCL 10 MG TABLET ONE (02:56)
[2021-06-25] MEDS ORDERED: methaDONE HCL 40 MG DISPERSABLE TABLET ONE (02:56)
[2021-06-25] MEDS: PRENATAL VITAMINS W/ FOLIC ACID TABLET (FP) PO SCH (09:53)
[2021-06-25] MEDS: cloNIDine HCL 0.1 MG TABLET PO SCH ×2 (09:53→22:49)
[2021-06-25] MEDS: NICOTINE 10 MG CARTRIDGE (INHALER) IH PRN (09:53)
[2021-06-25] MEDS: NICOTINE 21 MG/24 HOURS TOPICAL PATCH TD SCH (09:53)
[2021-06-25] MEDS: TOLNAFTATE 1% CREAM 15 GM TUBE TP SCH ×2 (09:54→21:06)
[2021-06-25] MEDS: MELATONIN 5 MG TABLETS PO SCH (21:06)
[2021-06-25] MEDS: hydrOXYzine PAMOATE 25 MG CAPSULE (FP) PO PRN (21:06)
[2021-06-25] MEDS: THIAMINE HCL 100 MG TABLET (FP) PO SCH (21:06)
[2021-06-26] MEDS ORDERED: methaDONE HCL 10 MG TABLET ONE (03:43)
[2021-06-26] MEDS ORDERED: methaDONE HCL 40 MG DISPERSABLE TABLET ONE (03:44)
[2021-06-26] MEDS: NICOTINE 21 MG/24 HOURS TOPICAL PATCH TD SCH (09:55)
[2021-06-26] MEDS: cloNIDine HCL 0.1 MG TABLET PO SCH ×2 (09:55→21:18)
[2021-06-26] MEDS: PRENATAL VITAMINS W/ FOLIC ACID TABLET (FP) PO SCH (09:55)
[2021-06-26] MEDS: TOLNAFTATE 1% CREAM 15 GM TUBE TP SCH ×2 (09:55→21:17)
[2021-06-26] MEDS: NICOTINE 10 MG CARTRIDGE (INHALER) IH PRN (09:56)
[2021-06-26] MEDS: MELATONIN 5 MG TABLETS PO SCH (21:18)
[2021-06-26] MEDS: THIAMINE HCL 100 MG TABLET (FP) PO SCH (21:18)
[2021-06-26] MEDS: hydrOXYzine PAMOATE 25 MG CAPSULE (FP) PO PRN (21:18)
[2021-06-27] MEDS ORDERED: methaDONE HCL 40 MG DISPERSABLE TABLET ONE (03:25)
[2021-06-27] MEDS ORDERED: methaDONE HCL 10 MG TABLET ONE (03:25)
[2021-06-27] MEDS: cloNIDine HCL 0.1 MG TABLET PO SCH ×2 (09:55→21:12)
[2021-06-27] MEDS: NICOTINE 21 MG/24 HOURS TOPICAL PATCH TD SCH (09:55)
[2021-06-27] MEDS: PRENATAL VITAMINS W/ FOLIC ACID TABLET (FP) PO SCH (09:55)
[2021-06-27] MEDS: TOLNAFTATE 1% CREAM 15 GM TUBE TP SCH ×2 (09:56→21:12)
[2021-06-27] MEDS: NICOTINE 10 MG CARTRIDGE (INHALER) IH PRN (09:56)
[2021-06-27] MEDS: MELATONIN 5 MG TABLETS PO SCH (21:12)
[2021-06-27] MEDS: THIAMINE HCL 100 MG TABLET (FP) PO SCH (21:55)
[2021-06-28] MEDS ORDERED: methaDONE HCL 40 MG DISPERSABLE TABLET ONE (03:01)
[2021-06-28] MEDS ORDERED: methaDONE HCL 10 MG TABLET ONE (03:01)
[2021-06-28] MEDS: cloNIDine HCL 0.1 MG TABLET PO SCH ×2 (09:56→21:30)
[2021-06-28] MEDS: PRENATAL VITAMINS W/ FOLIC ACID TABLET (FP) PO SCH (09:56)
[2021-06-28] MEDS: TOLNAFTATE 1% CREAM 15 GM TUBE TP SCH ×2 (09:57→21:30)
[2021-06-28] MEDS: NICOTINE 21 MG/24 HOURS TOPICAL PATCH TD SCH (09:57)
[2021-06-28] MEDS: NICOTINE 10 MG CARTRIDGE (INHALER) IH PRN (09:57)
[2021-06-28] MEDS: MAG HYDROX/AL HYDROX/SIMETH 30 ML UNIT-DOSE CUP PO PRN (15:06)
[2021-06-28] MEDS: MELATONIN 5 MG TABLETS PO SCH (21:31)
[2021-06-28] MEDS: THIAMINE HCL 100 MG TABLET (FP) PO SCH (21:31)
[2021-06-29] MEDS ORDERED: methaDONE HCL 10 MG TABLET ONE (03:15)
[2021-06-29] MEDS ORDERED: methaDONE HCL 40 MG DISPERSABLE TABLET ONE (03:16)
[2021-06-29] MEDS: PRENATAL VITAMINS W/ FOLIC ACID TABLET (FP) PO SCH (09:53)
[2021-06-29] MEDS: TOLNAFTATE 1% CREAM 15 GM TUBE TP SCH ×2 (09:54→21:20)
[2021-06-29] MEDS: NICOTINE 10 MG CARTRIDGE (INHALER) IH PRN (09:54)
[2021-06-29] MEDS: NICOTINE 21 MG/24 HOURS TOPICAL PATCH TD SCH (09:54)
[2021-06-29] MEDS: cloNIDine HCL 0.1 MG TABLET PO SCH ×2 (09:57→21:19)
[2021-06-29] MEDS: THIAMINE HCL 100 MG TABLET (FP) PO SCH (21:19)
[2021-06-29] MEDS: MELATONIN 5 MG TABLETS PO SCH (21:19)
[2021-06-29] MEDS: hydrOXYzine PAMOATE 25 MG CAPSULE (FP) PO PRN (21:19)
[2021-06-30] MEDS ORDERED: methaDONE HCL 10 MG TABLET ONE (05:06)
[2021-06-30] MEDS ORDERED: methaDONE HCL 40 MG DISPERSABLE TABLET ONE (05:06)
[2021-06-30] MEDS: NICOTINE 21 MG/24 HOURS TOPICAL PATCH TD SCH (10:06)
[2021-06-30] MEDS: NICOTINE 10 MG CARTRIDGE (INHALER) IH PRN (10:06)
[2021-06-30] MEDS: TOLNAFTATE 1% CREAM 15 GM TUBE TP SCH ×2 (10:06→21:23)
[2021-06-30] MEDS: cloNIDine HCL 0.1 MG TABLET PO SCH ×2 (10:06→21:23)
[2021-06-30] MEDS: PRENATAL VITAMINS W/ FOLIC ACID TABLET (FP) PO SCH (10:06)
[2021-06-30] MEDS: THIAMINE HCL 100 MG TABLET (FP) PO SCH (21:22)
[2021-06-30] MEDS: MELATONIN 5 MG TABLETS PO SCH (21:23)
[2021-07-01] MEDS ORDERED: methaDONE HCL 40 MG DISPERSABLE TABLET ONE (03:05)
[2021-07-01] MEDS ORDERED: methaDONE HCL 10 MG TABLET ONE (03:05)
[2021-07-01] MEDS: NICOTINE 21 MG/24 HOURS TOPICAL PATCH TD SCH (09:55)
[2021-07-01] MEDS: PRENATAL VITAMINS W/ FOLIC ACID TABLET (FP) PO SCH (09:55)
[2021-07-01] MEDS: TOLNAFTATE 1% CREAM 15 GM TUBE TP SCH ×2 (09:56→21:11)
[2021-07-01] MEDS: NICOTINE 10 MG CARTRIDGE (INHALER) IH PRN (09:56)
[2021-07-01] MEDS: cloNIDine HCL 0.1 MG TABLET PO SCH ×2 (09:56→21:11)
[2021-07-01] MEDS: THIAMINE HCL 100 MG TABLET (FP) PO SCH (21:11)
[2021-07-01] MEDS: hydrOXYzine PAMOATE 25 MG CAPSULE (FP) PO PRN (21:11)
[2021-07-01] MEDS: MELATONIN 5 MG TABLETS PO SCH (21:11)
[2021-07-02] MEDS ORDERED: methaDONE HCL 10 MG TABLET ONE (06:24)
[2021-07-02] MEDS ORDERED: methaDONE HCL 40 MG DISPERSABLE TABLET ONE (06:25)
[2021-07-02 07:05] VITALS: BP 137/81; PULSE 75; TEMP 97.5
[2021-07-02] MEDS: cloNIDine HCL 0.1 MG TABLET PO SCH (09:25)
[2021-07-02] MEDS: PRENATAL VITAMINS W/ FOLIC ACID TABLET (FP) PO SCH (09:25)
[2021-07-02] MEDS: NICOTINE 21 MG/24 HOURS TOPICAL PATCH TD SCH (09:25)
[2021-07-02] MEDS: TOLNAFTATE 1% CREAM 15 GM TUBE TP SCH (09:26)
== END 2021-07-02 09:35 | disposition home or self-care (01) | DRG 772 ==
LOC: YASAS 11:40 → Y5N 11:41
PROVIDERS: ADMIT Allergy & Immunology; ATTEND Allergy & Immunology
PROC: HZ42ZZZ Group Counseling for Substance Abuse Treatment, Cognitive-Behavioral (ICD-10-PCS; principal; 2021-06-18)
DX: F10.20 Alcohol dependence, uncomplicated (principal); F11.20 Opioid dependence, uncomplicated; F14.20 Cocaine dependence, uncomplicated; F17.210 Nicotine dependence, cigarettes, uncomplicated; I10 Essential (primary) hypertension; J45.909 Unspecified asthma, uncomplicated; Z86.19 Personal history of other infectious and parasitic diseases
CPT/HCPCS: C9803; J0735; U0003; U0005

== ENCOUNTER 2022-07-17 11:24 | Inpatient (IN) | payer OTHER ==
[2022-07-17 11:54] VITALS: BMI 23.1
[2022-07-17] MEDS ORDERED: MAGNESIUM HYDROX 2400MG/30ML ORAL SUSPENSION 30 ML CUP PO PRN (12:43)
[2022-07-17] MEDS ORDERED: BISMUTH SUBSALICYLATE 524 MG/30 ML PO PRN (12:43)
[2022-07-17] MEDS ORDERED: BENZOCAINE/MENTHOL (CHLORASEPTIC ) LOZENGE MM PRN (12:43)
[2022-07-17] MEDS ORDERED: LOPERAMIDE HCL 2 MG CAPSULE PO PRN (12:43)
[2022-07-17] MEDS ORDERED: IBUPROFEN 600 MG TABLET (FP) PO PRN (12:43)
[2022-07-17] MEDS ORDERED: IBUPROFEN 400 MG TABLET (FP) PO PRN (12:43)
[2022-07-17] MEDS ORDERED: MAG HYDROX/AL HYDROX/SIMETH 30 ML UNIT-DOSE CUP PO PRN (12:43)
[2022-07-17] MEDS ORDERED: ONDANSETRON *ODT* 4 MG TABLET SL PRN (12:43)
[2022-07-17] MEDS ORDERED: ACETAMINOPHEN 325 MG TABLET (FP) PO PRN ×2 (12:43)
[2022-07-17] MEDS ORDERED: POLYETHYLENE GLYCOL (HEALTHYLAX) 3350 17 GM PACKET PO PRN (12:43)
[2022-07-17] MEDS ORDERED: DICYCLOMINE HCL 10 MG CAPSULE PO PRN (12:43)
[2022-07-17] MEDS ORDERED: hydrOXYzine PAMOATE 25 MG CAPSULE (FP) PO PRN (12:43)
[2022-07-17] MEDS ORDERED: NALOXONE HCL (KLOXXADO) 8 MG SPRAY NS PRN (12:43)
[2022-07-17] MEDS ORDERED: ALBUTEROL SO4 HFA INHALER IH PRN (12:45)
[2022-07-17] MEDS: CLOTRIMAZOLE 1% CREAM TP SCH (15:00)
[2022-07-17] MEDS: THIAMINE HCL 100 MG TABLET (FP) PO SCH (21:52)
[2022-07-17] MEDS: METHOCARBAMOL 500 MG TABLET PO PRN (21:53)
[2022-07-17] MEDS: BUDESONIDE/FORMETEROL FUMARATE 80/4.5 mcg INHALER IH SCH (21:57)
[2022-07-17] MEDS: cloNIDine HCL 0.1 MG TABLET PO SCH (21:58)
[2022-07-17] MEDS: ATORVASTATIN CA 40 MG TABLET (FP) PO SCH (21:58)
[2022-07-17] MEDS ORDERED: MELATONIN 5 MG TABLETS PO SCH (22:00)
[2022-07-17] MEDS: NICOTINE 10 MG CARTRIDGE (INHALER) IH PRN (22:18)
[2022-07-18] MEDS ORDERED: methaDONE HCL 40 MG DISPERSABLE TABLET PO SCH (06:00)
[2022-07-18] MEDS: CLOTRIMAZOLE 1% CREAM TP SCH ×3 (08:22→22:36)
[2022-07-18] MEDS ORDERED: FENOFIBRIC ACID 135 MG CAP PO SCH (10:00)
[2022-07-18] MEDS ORDERED: AZITHROMYCIN 250 MG TABLET PO SCH (10:00)
[2022-07-18] MEDS: BUDESONIDE/FORMETEROL FUMARATE 80/4.5 mcg INHALER IH SCH ×2 (10:20→21:47)
[2022-07-18] MEDS: ASPIRIN COATED 81 MG TABLET.EC PO SCH (10:20)
[2022-07-18] MEDS: PRENATAL VITAMINS W/ FOLIC ACID TABLET (FP) PO SCH (10:20)
[2022-07-18] MEDS: cloNIDine HCL 0.1 MG TABLET PO SCH ×2 (10:20→21:47)
[2022-07-18] MEDS: FENOFIBRIC ACID 135 MG CAP PO SCH (13:52)
[2022-07-18] MEDS: ATORVASTATIN CA 40 MG TABLET (FP) PO SCH (21:46)
[2022-07-18] MEDS: THIAMINE HCL 100 MG TABLET (FP) PO SCH (21:46)
[2022-07-18] MEDS: SUVOREXANT 15 MG TABLET PO PRN (22:00)
[2022-07-19] MEDS: FENOFIBRIC ACID 135 MG CAP PO SCH (10:08)
[2022-07-19] MEDS: cloNIDine HCL 0.1 MG TABLET PO SCH ×2 (10:08→22:07)
[2022-07-19] MEDS: BUDESONIDE/FORMETEROL FUMARATE 80/4.5 mcg INHALER IH SCH ×2 (10:08→22:07)
[2022-07-19] MEDS: CLOTRIMAZOLE 1% CREAM TP SCH ×2 (10:08→22:06)
[2022-07-19] MEDS: ASPIRIN COATED 81 MG TABLET.EC PO SCH (10:08)
[2022-07-19] MEDS: PRENATAL VITAMINS W/ FOLIC ACID TABLET (FP) PO SCH (10:08)
[2022-07-19] MEDS ORDERED: chlordiazePOXIDE HCL 25 MG CAPSULE PO PRN (10:14)
[2022-07-19] MEDS: chlordiazePOXIDE HCL 25 MG CAPSULE PO SCH ×3 (11:02→22:07)
[2022-07-19 14:06] LABS: HEMATOCRIT 35.5 % (35.4-49); HEMOGLOBIN 11.4 GM/dL (11.7-16.9); MCH 27.2 pg (25.7-33.7); MCHC 32.2 g/dl (32.0-35.9); MEAN CELL VOLUME 84.5 fl (80-96); MEAN PLT VOLUME 8.5 fl (7.5-11.1); PLATELET COUNT 293 10^3/uL (134-434); RDW 14.1 % (11.9-15.9)
[2022-07-19 15:24] LABS: CALCIUM 9.1 mg/dL (8.5-10.1)
[2022-07-19 15:56] LABS: ALBUMIN 3.7 g/dl (3.4-5.0)
[2022-07-19 15:57] LABS: BLOOD UREA NITROGEN 15.6 mg/dL (7-18)
[2022-07-19 15:59] LABS: CREATININE 1.2 mg/dL (0.55-1.3)
[2022-07-19 16:01] LABS: BILIRUBIN,TOTAL 0.3 mg/dL (0.2-1); TOT PROT 6.8 g/dl (6.4-8.2)
[2022-07-19 16:29] LABS: HIV INTERPRETATION NEGATIVE (NEGATIVE)
[2022-07-19] MEDS: NICOTINE 10 MG CARTRIDGE (INHALER) IH PRN (17:40)
[2022-07-19] MEDS: ATORVASTATIN CA 40 MG TABLET (FP) PO SCH (22:06)
[2022-07-19] MEDS: THIAMINE HCL 100 MG TABLET (FP) PO SCH (22:06)
[2022-07-19] MEDS: SUVOREXANT 15 MG TABLET PO PRN (22:10)
[2022-07-20] MEDS: chlordiazePOXIDE HCL 25 MG CAPSULE PO SCH ×4 (05:09→22:06)
[2022-07-20] MEDS ORDERED: guaiFENesin 200 MG/10 ML 10 ML UNIT-DOSE CUPS PO PRN (09:38)
[2022-07-20] MEDS: BUDESONIDE/FORMETEROL FUMARATE 80/4.5 mcg INHALER IH SCH ×2 (10:09→22:04)
[2022-07-20] MEDS: cloNIDine HCL 0.1 MG TABLET PO SCH ×2 (10:10→22:05)
[2022-07-20] MEDS: ASPIRIN COATED 81 MG TABLET.EC PO SCH (10:10)
[2022-07-20] MEDS: PRENATAL VITAMINS W/ FOLIC ACID TABLET (FP) PO SCH (10:11)
[2022-07-20] MEDS: FENOFIBRIC ACID 135 MG CAP PO SCH (10:12)
[2022-07-20] MEDS: CLOTRIMAZOLE 1% CREAM TP SCH ×2 (10:13→22:04)
[2022-07-20] MEDS: ATORVASTATIN CA 40 MG TABLET (FP) PO SCH (22:04)
[2022-07-20] MEDS: THIAMINE HCL 100 MG TABLET (FP) PO SCH (22:05)
[2022-07-20] MEDS: METHOCARBAMOL 500 MG TABLET PO PRN (22:05)
[2022-07-20] MEDS: SUVOREXANT 15 MG TABLET PO PRN (22:06)
[2022-07-21] MEDS ORDERED: chlordiazePOXIDE HCL 25 MG CAPSULE PO SCH (05:00)
[2022-07-21] MEDS: chlordiazePOXIDE HCL 25 MG CAPSULE PO SCH ×2 (05:11→17:34)
[2022-07-21] MEDS: FENOFIBRIC ACID 135 MG CAP PO SCH (10:03)
[2022-07-21] MEDS: ASPIRIN COATED 81 MG TABLET.EC PO SCH (10:03)
[2022-07-21] MEDS: PRENATAL VITAMINS W/ FOLIC ACID TABLET (FP) PO SCH (10:03)
[2022-07-21] MEDS: BUDESONIDE/FORMETEROL FUMARATE 80/4.5 mcg INHALER IH SCH ×2 (10:03→21:56)
[2022-07-21] MEDS: cloNIDine HCL 0.1 MG TABLET PO SCH ×2 (10:03→22:01)
[2022-07-21] MEDS: CLOTRIMAZOLE 1% CREAM TP SCH ×2 (10:04→22:02)
[2022-07-21] MEDS: NICOTINE 10 MG CARTRIDGE (INHALER) IH PRN (10:05)
[2022-07-21] MEDS: SUVOREXANT 15 MG TABLET PO PRN (22:00)
[2022-07-21] MEDS: THIAMINE HCL 100 MG TABLET (FP) PO SCH (22:01)
[2022-07-21] MEDS: ATORVASTATIN CA 40 MG TABLET (FP) PO SCH (22:01)
[2022-07-21] MEDS: METHOCARBAMOL 500 MG TABLET PO PRN (22:03)
[2022-07-22] MEDS ORDERED: chlordiazePOXIDE HCL 10 MG CAPSULE PO PRN
[2022-07-22] MEDS ORDERED: chlordiazePOXIDE HCL 10 MG CAPSULE PO SCH (05:00)
[2022-07-22] MEDS ORDERED: chlordiazePOXIDE HCL 10 MG CAPSULE PO ONE (05:00)
[2022-07-22 09:30] VITALS: RESP 16
[2022-07-22] MEDS: BUDESONIDE/FORMETEROL FUMARATE 80/4.5 mcg INHALER IH SCH (10:07)
[2022-07-22] MEDS: ASPIRIN COATED 81 MG TABLET.EC PO SCH (10:07)
[2022-07-22] MEDS: FENOFIBRIC ACID 135 MG CAP PO SCH (10:07)
[2022-07-22] MEDS: cloNIDine HCL 0.1 MG TABLET PO SCH (10:07)
[2022-07-22] MEDS: PRENATAL VITAMINS W/ FOLIC ACID TABLET (FP) PO SCH (10:08)
[2022-07-22] MEDS: CLOTRIMAZOLE 1% CREAM TP SCH (10:08)
[2022-07-22 13:07] VITALS: BP 111/69; PULSE 90; TEMP 96.7
== END 2022-07-22 13:42 | disposition other institution (70) | DRG 773 ==
LOC: YASAS 11:24 → Y3N 14:06
PROVIDERS: ADMIT Allergy & Immunology; ATTEND Family Medicine
PROC: HZ2ZZZZ Detoxification Services for Substance Abuse Treatment (ICD-10-PCS; principal; 2022-07-14)
DX: F11.23 Opioid dependence with withdrawal (principal); F10.230 Alcohol dependence with withdrawal, uncomplicated; F14.20 Cocaine dependence, uncomplicated; F17.210 Nicotine dependence, cigarettes, uncomplicated; F19.282 Other psychoactive substance dependence with psychoactive substance-induced sleep disorder; F19.280 Other psychoactive substance dependence with psychoactive substance-induced anxiety disorder; F32.A Depression, unspecified; E72.20 Disorder of urea cycle metabolism, unspecified; E78.5 Hyperlipidemia, unspecified; J40 Bronchitis, not specified as acute or chronic; I10 Essential (primary) hypertension; M54.50 Low back pain, unspecified; G89.29 Other chronic pain; B35.2 Tinea manuum; R76.11 Nonspecific reaction to tuberculin skin test without active tuberculosis; Z62.810 Personal history of physical and sexual abuse in childhood; Z86.19 Personal history of other infectious and parasitic diseases; Z87.09 Personal history of other diseases of the respiratory system
CPT/HCPCS: 36415; 80053; 82140; 85027; 86593; 86780; 87389; C9803-CS; U0003; U0005

== ENCOUNTER 2022-07-22 13:59 | Inpatient (IN) | payer OTHER ==
[2022-07-22] MEDS ORDERED: guaiFENesin 200 MG/10 ML 10 ML UNIT-DOSE CUPS PO PRN (18:58)
[2022-07-22] MEDS ORDERED: POLYETHYLENE GLYCOL (HEALTHYLAX) 3350 17 GM PACKET PO PRN (18:58)
[2022-07-22] MEDS ORDERED: ALBUTEROL SO4 HFA INHALER IH PRN (18:58)
[2022-07-22] MEDS ORDERED: ACETAMINOPHEN 325 MG TABLET (FP) PO PRN (18:58)
[2022-07-22] MEDS ORDERED: BENZOCAINE/MENTHOL (CHLORASEPTIC ) LOZENGE MM PRN (18:58)
[2022-07-22] MEDS ORDERED: MAGNESIUM HYDROX 2400MG/30ML ORAL SUSPENSION 30 ML CUP PO PRN (18:58)
[2022-07-22] MEDS ORDERED: LOPERAMIDE HCL 2 MG CAPSULE PO PRN (18:58)
[2022-07-22] MEDS ORDERED: P-EPHED 60MG/TRIPROLIDI 2.5MG TABLET PO PRN (18:58)
[2022-07-22] MEDS: ATORVASTATIN CA 40 MG TABLET (FP) PO SCH (21:30)
[2022-07-22] MEDS: THIAMINE HCL 100 MG TABLET (FP) PO SCH (21:30)
[2022-07-22] MEDS: BUDESONIDE/FORMETEROL FUMARATE 80/4.5 mcg INHALER IH SCH (22:22)
[2022-07-23] MEDS ORDERED: methaDONE HCL 40 MG DISPERSABLE TABLET PO SCH (06:00)
[2022-07-23] MEDS: PRENATAL VITAMINS W/ FOLIC ACID TABLET (FP) PO SCH (10:13)
[2022-07-23] MEDS: BUDESONIDE/FORMETEROL FUMARATE 80/4.5 mcg INHALER IH SCH ×2 (10:14→21:47)
[2022-07-23] MEDS: ASPIRIN COATED 81 MG TABLET.EC PO SCH (10:14)
[2022-07-23] MEDS: CLOTRIMAZOLE 1% CREAM TP SCH ×2 (10:16→21:47)
[2022-07-23] MEDS: FENOFIBRIC ACID 135 MG CAP PO SCH (10:16)
[2022-07-23] MEDS: NICOTINE 10 MG CARTRIDGE (INHALER) IH PRN (15:11)
[2022-07-23] MEDS: NICOTINE 14 MG/24 HOURS TOPICAL PATCH TD SCH (15:11)
[2022-07-23] MEDS: THIAMINE HCL 100 MG TABLET (FP) PO SCH (21:43)
[2022-07-23] MEDS: ATORVASTATIN CA 40 MG TABLET (FP) PO SCH (21:43)
[2022-07-24] MEDS ORDERED: SUVOREXANT 15 MG TABLET PO STA (01:45)
[2022-07-24] MEDS: NICOTINE 14 MG/24 HOURS TOPICAL PATCH TD SCH (09:50)
[2022-07-24] MEDS: BUDESONIDE/FORMETEROL FUMARATE 80/4.5 mcg INHALER IH SCH ×2 (09:51→21:14)
[2022-07-24] MEDS: CLOTRIMAZOLE 1% CREAM TP SCH ×2 (09:51→21:14)
[2022-07-24] MEDS: PRENATAL VITAMINS W/ FOLIC ACID TABLET (FP) PO SCH (09:51)
[2022-07-24] MEDS: ASPIRIN COATED 81 MG TABLET.EC PO SCH (09:51)
[2022-07-24] MEDS: FENOFIBRIC ACID 135 MG CAP PO SCH (11:31)
[2022-07-24] MEDS ORDERED: hydrOXYzine PAMOATE 25 MG CAPSULE (FP) PO PRN (13:51)
[2022-07-24] MEDS: THIAMINE HCL 100 MG TABLET (FP) PO SCH (21:14)
[2022-07-24] MEDS: ATORVASTATIN CA 40 MG TABLET (FP) PO SCH (21:14)
[2022-07-24] MEDS: SUVOREXANT 10 MG TABLET PO PRN (21:15)
[2022-07-25] MEDS: NICOTINE 14 MG/24 HOURS TOPICAL PATCH TD SCH (10:11)
[2022-07-25] MEDS: PRENATAL VITAMINS W/ FOLIC ACID TABLET (FP) PO SCH (10:11)
[2022-07-25] MEDS: BUDESONIDE/FORMETEROL FUMARATE 80/4.5 mcg INHALER IH SCH ×2 (10:11→21:51)
[2022-07-25] MEDS: FENOFIBRIC ACID 135 MG CAP PO SCH (10:12)
[2022-07-25] MEDS: ASPIRIN COATED 81 MG TABLET.EC PO SCH (10:12)
[2022-07-25] MEDS: NICOTINE 10 MG CARTRIDGE (INHALER) IH PRN (10:13)
[2022-07-25] MEDS: CLOTRIMAZOLE 1% CREAM TP SCH ×2 (10:13→21:51)
[2022-07-25] MEDS: THIAMINE HCL 100 MG TABLET (FP) PO SCH (21:50)
[2022-07-25] MEDS: SUVOREXANT 10 MG TABLET PO PRN (21:50)
[2022-07-25] MEDS: ATORVASTATIN CA 40 MG TABLET (FP) PO SCH (21:50)
[2022-07-25] MEDS ORDERED: SUVOREXANT 10 MG TABLET PO PRN (22:00)
[2022-07-26] MEDS: LACTULOSE 20 GM/30 ML UDC (FOR ORAL USE ONLY) PO SCH ×4 (09:47→21:25)
[2022-07-26] MEDS: cloNIDine HCL 0.1 MG TABLET PO SCH ×2 (09:47→21:25)
[2022-07-26] MEDS: ASPIRIN COATED 81 MG TABLET.EC PO SCH (09:47)
[2022-07-26] MEDS: CLOTRIMAZOLE 1% CREAM TP SCH ×2 (09:48→21:27)
[2022-07-26] MEDS: NICOTINE 14 MG/24 HOURS TOPICAL PATCH TD SCH (09:48)
[2022-07-26] MEDS: BUDESONIDE/FORMETEROL FUMARATE 80/4.5 mcg INHALER IH SCH ×2 (09:48→21:29)
[2022-07-26] MEDS: PRENATAL VITAMINS W/ FOLIC ACID TABLET (FP) PO SCH (09:48)
[2022-07-26] MEDS: FENOFIBRIC ACID 135 MG CAP PO SCH (09:49)
[2022-07-26] MEDS: EMTRICITABINE 200MG/TENOFOVIR 300MG PO SCH (12:02)
[2022-07-26] MEDS: THIAMINE HCL 100 MG TABLET (FP) PO SCH (21:26)
[2022-07-26] MEDS: ATORVASTATIN CA 40 MG TABLET (FP) PO SCH (21:26)
[2022-07-26] MEDS: MOMETASONE FUROATE 220 MCG/IH INHALER IH SCH (21:27)
[2022-07-26] MEDS: NICOTINE 10 MG CARTRIDGE (INHALER) IH PRN (21:28)
[2022-07-27] MEDS: NICOTINE 10 MG CARTRIDGE (INHALER) IH PRN (09:39)
[2022-07-27] MEDS: NICOTINE 14 MG/24 HOURS TOPICAL PATCH TD SCH (09:39)
[2022-07-27] MEDS: ASPIRIN COATED 81 MG TABLET.EC PO SCH (09:39)
[2022-07-27] MEDS: PRENATAL VITAMINS W/ FOLIC ACID TABLET (FP) PO SCH (09:39)
[2022-07-27] MEDS: LACTULOSE 20 GM/30 ML UDC (FOR ORAL USE ONLY) PO SCH ×2 (09:52→13:47)
[2022-07-27] MEDS: BUDESONIDE/FORMETEROL FUMARATE 80/4.5 mcg INHALER IH SCH ×2 (10:12→21:33)
[2022-07-27] MEDS: EMTRICITABINE 200MG/TENOFOVIR 300MG PO SCH (10:13)
[2022-07-27] MEDS: cloNIDine HCL 0.1 MG TABLET PO SCH ×2 (10:15→21:05)
[2022-07-27] MEDS ORDERED: cloNIDine HCL 0.1 MG TABLET PO SCH (10:28)
[2022-07-27] MEDS: FENOFIBRIC ACID 135 MG CAP PO SCH (11:04)
[2022-07-27] MEDS: CLOTRIMAZOLE 1% CREAM TP SCH ×2 (11:05→21:32)
[2022-07-27] MEDS: THIAMINE HCL 100 MG TABLET (FP) PO SCH (21:05)
[2022-07-27] MEDS: ATORVASTATIN CA 40 MG TABLET (FP) PO SCH (21:05)
[2022-07-27] MEDS: SUVOREXANT 10 MG TABLET PO PRN (21:06)
[2022-07-27] MEDS: MOMETASONE FUROATE 220 MCG/IH INHALER IH SCH (21:32)
[2022-07-28] MEDS: PRENATAL VITAMINS W/ FOLIC ACID TABLET (FP) PO SCH (09:45)
[2022-07-28] MEDS: BUDESONIDE/FORMETEROL FUMARATE 80/4.5 mcg INHALER IH SCH ×2 (09:45→21:09)
[2022-07-28] MEDS: ASPIRIN COATED 81 MG TABLET.EC PO SCH (09:45)
[2022-07-28] MEDS: cloNIDine HCL 0.1 MG TABLET PO SCH ×2 (09:45→21:06)
[2022-07-28] MEDS: NICOTINE 14 MG/24 HOURS TOPICAL PATCH TD SCH (09:46)
[2022-07-28] MEDS: NICOTINE 10 MG CARTRIDGE (INHALER) IH PRN (09:46)
[2022-07-28] MEDS: FENOFIBRIC ACID 135 MG CAP PO SCH (09:47)
[2022-07-28] MEDS: CLOTRIMAZOLE 1% CREAM TP SCH ×2 (09:47→21:08)
[2022-07-28] MEDS: EMTRICITABINE 200MG/TENOFOVIR 300MG PO SCH (09:47)
[2022-07-28] MEDS: THIAMINE HCL 100 MG TABLET (FP) PO SCH (21:06)
[2022-07-28] MEDS: SUVOREXANT 20 MG TABLET PO SCH (21:08)
[2022-07-28] MEDS: ATORVASTATIN CA 40 MG TABLET (FP) PO SCH (21:08)
[2022-07-28] MEDS: MOMETASONE FUROATE 220 MCG/IH INHALER IH SCH (21:08)
[2022-07-29] MEDS: IBUPROFEN 400 MG TABLET (FP) PO PRN ×2 (03:22→10:06)
[2022-07-29] MEDS: BUDESONIDE/FORMETEROL FUMARATE 80/4.5 mcg INHALER IH SCH ×2 (09:42→21:14)
[2022-07-29] MEDS: PRENATAL VITAMINS W/ FOLIC ACID TABLET (FP) PO SCH (09:42)
[2022-07-29] MEDS: ASPIRIN COATED 81 MG TABLET.EC PO SCH (09:43)
[2022-07-29] MEDS: CLOTRIMAZOLE 1% CREAM TP SCH ×2 (09:43→21:14)
[2022-07-29] MEDS: NICOTINE 10 MG CARTRIDGE (INHALER) IH PRN (09:43)
[2022-07-29] MEDS: NICOTINE 14 MG/24 HOURS TOPICAL PATCH TD SCH (09:43)
[2022-07-29] MEDS: EMTRICITABINE 200MG/TENOFOVIR 300MG PO SCH (09:44)
[2022-07-29] MEDS: FENOFIBRIC ACID 135 MG CAP PO SCH (09:44)
[2022-07-29] MEDS: cloNIDine HCL 0.1 MG TABLET PO SCH ×2 (09:44→21:13)
[2022-07-29] MEDS: METHYL SALICYLATE/MENTHOL OINT 30 GM TUBE TP SCH ×2 (14:25→21:16)
[2022-07-29] MEDS: METHOCARBAMOL 500 MG TABLET PO PRN ×2 (14:27→21:18)
[2022-07-29] MEDS: ATORVASTATIN CA 40 MG TABLET (FP) PO SCH (21:13)
[2022-07-29] MEDS: THIAMINE HCL 100 MG TABLET (FP) PO SCH (21:13)
[2022-07-29] MEDS: SUVOREXANT 20 MG TABLET PO SCH (21:17)
[2022-07-29] MEDS: MOMETASONE FUROATE 220 MCG/IH INHALER IH SCH (21:28)
[2022-07-29] MEDS: MAG HYDROX/AL HYDROX/SIMETH 30 ML UNIT-DOSE CUP PO PRN (22:14)
[2022-07-30] MEDS: BUDESONIDE/FORMETEROL FUMARATE 80/4.5 mcg INHALER IH SCH ×2 (09:45→21:16)
[2022-07-30] MEDS: ASPIRIN COATED 81 MG TABLET.EC PO SCH (09:46)
[2022-07-30] MEDS: cloNIDine HCL 0.1 MG TABLET PO SCH ×2 (09:46→21:14)
[2022-07-30] MEDS: NICOTINE 10 MG CARTRIDGE (INHALER) IH PRN (09:47)
[2022-07-30] MEDS: PRENATAL VITAMINS W/ FOLIC ACID TABLET (FP) PO SCH (09:47)
[2022-07-30] MEDS: NICOTINE 14 MG/24 HOURS TOPICAL PATCH TD SCH (09:47)
[2022-07-30] MEDS: CLOTRIMAZOLE 1% CREAM TP SCH ×2 (09:47→21:16)
[2022-07-30] MEDS: METHYL SALICYLATE/MENTHOL OINT 30 GM TUBE TP SCH ×2 (09:48→21:16)
[2022-07-30] MEDS: EMTRICITABINE 200MG/TENOFOVIR 300MG PO SCH (09:48)
[2022-07-30] MEDS: METHOCARBAMOL 500 MG TABLET PO PRN ×2 (09:50→21:15)
[2022-07-30] MEDS: FENOFIBRIC ACID 135 MG CAP PO SCH (09:52)
[2022-07-30] MEDS: THIAMINE HCL 100 MG TABLET (FP) PO SCH (21:14)
[2022-07-30] MEDS: SUVOREXANT 20 MG TABLET PO SCH (21:14)
[2022-07-30] MEDS: ATORVASTATIN CA 40 MG TABLET (FP) PO SCH (21:15)
[2022-07-30] MEDS: MOMETASONE FUROATE 220 MCG/IH INHALER IH SCH (21:16)
[2022-07-31] MEDS: NICOTINE 10 MG CARTRIDGE (INHALER) IH PRN (06:05)
[2022-07-31] MEDS: PRENATAL VITAMINS W/ FOLIC ACID TABLET (FP) PO SCH (09:41)
[2022-07-31] MEDS: ASPIRIN COATED 81 MG TABLET.EC PO SCH (09:42)
[2022-07-31] MEDS: METHYL SALICYLATE/MENTHOL OINT 30 GM TUBE TP SCH ×2 (09:42→21:21)
[2022-07-31] MEDS: METHOCARBAMOL 500 MG TABLET PO PRN ×2 (09:42→21:20)
[2022-07-31] MEDS: cloNIDine HCL 0.1 MG TABLET PO SCH ×2 (09:42→21:18)
[2022-07-31] MEDS: BUDESONIDE/FORMETEROL FUMARATE 80/4.5 mcg INHALER IH SCH ×2 (09:43→21:21)
[2022-07-31] MEDS: CLOTRIMAZOLE 1% CREAM TP SCH ×2 (09:43→21:21)
[2022-07-31] MEDS: NICOTINE 14 MG/24 HOURS TOPICAL PATCH TD SCH (09:43)
[2022-07-31] MEDS: FENOFIBRIC ACID 135 MG CAP PO SCH (09:43)
[2022-07-31] MEDS: EMTRICITABINE 200MG/TENOFOVIR 300MG PO SCH (09:43)
[2022-07-31] MEDS: THIAMINE HCL 100 MG TABLET (FP) PO SCH (21:19)
[2022-07-31] MEDS: SUVOREXANT 20 MG TABLET PO SCH (21:19)
[2022-07-31] MEDS: ATORVASTATIN CA 40 MG TABLET (FP) PO SCH (21:19)
[2022-07-31] MEDS: MOMETASONE FUROATE 220 MCG/IH INHALER IH SCH (21:20)
[2022-08-01] MEDS: NICOTINE 10 MG CARTRIDGE (INHALER) IH PRN ×2 (06:03→21:21)
[2022-08-01] MEDS: PRENATAL VITAMINS W/ FOLIC ACID TABLET (FP) PO SCH (09:40)
[2022-08-01] MEDS: CLOTRIMAZOLE 1% CREAM TP SCH ×2 (09:40→21:49)
[2022-08-01] MEDS: NICOTINE 14 MG/24 HOURS TOPICAL PATCH TD SCH (09:40)
[2022-08-01] MEDS: BUDESONIDE/FORMETEROL FUMARATE 80/4.5 mcg INHALER IH SCH ×2 (09:41→21:49)
[2022-08-01] MEDS: cloNIDine HCL 0.1 MG TABLET PO SCH ×2 (09:41→21:21)
[2022-08-01] MEDS: METHYL SALICYLATE/MENTHOL OINT 30 GM TUBE TP SCH ×2 (09:41→21:49)
[2022-08-01] MEDS: FENOFIBRIC ACID 135 MG CAP PO SCH (09:41)
[2022-08-01] MEDS: ASPIRIN COATED 81 MG TABLET.EC PO SCH (09:41)
[2022-08-01] MEDS: EMTRICITABINE 200MG/TENOFOVIR 300MG PO SCH (09:42)
[2022-08-01] MEDS: METHOCARBAMOL 500 MG TABLET PO PRN ×2 (09:43→21:22)
[2022-08-01] MEDS: MAG HYDROX/AL HYDROX/SIMETH 30 ML UNIT-DOSE CUP PO PRN (13:39)
[2022-08-01] MEDS: THIAMINE HCL 100 MG TABLET (FP) PO SCH (21:21)
[2022-08-01] MEDS: SUVOREXANT 20 MG TABLET PO SCH (21:21)
[2022-08-01] MEDS: ATORVASTATIN CA 40 MG TABLET (FP) PO SCH (21:21)
[2022-08-01] MEDS: MOMETASONE FUROATE 220 MCG/IH INHALER IH SCH (21:49)
[2022-08-02] MEDS: NICOTINE 10 MG CARTRIDGE (INHALER) IH PRN (06:06)
[2022-08-02] MEDS: METHYL SALICYLATE/MENTHOL OINT 30 GM TUBE TP SCH ×2 (09:36→21:11)
[2022-08-02] MEDS: BUDESONIDE/FORMETEROL FUMARATE 80/4.5 mcg INHALER IH SCH ×2 (09:36→21:11)
[2022-08-02] MEDS: PRENATAL VITAMINS W/ FOLIC ACID TABLET (FP) PO SCH (09:36)
[2022-08-02] MEDS: ASPIRIN COATED 81 MG TABLET.EC PO SCH (09:37)
[2022-08-02] MEDS: EMTRICITABINE 200MG/TENOFOVIR 300MG PO SCH (09:37)
[2022-08-02] MEDS: METHOCARBAMOL 500 MG TABLET PO PRN ×2 (09:37→21:10)
[2022-08-02] MEDS: cloNIDine HCL 0.1 MG TABLET PO SCH ×2 (09:37→21:10)
[2022-08-02] MEDS: FENOFIBRIC ACID 135 MG CAP PO SCH (09:38)
[2022-08-02] MEDS: NICOTINE 14 MG/24 HOURS TOPICAL PATCH TD SCH (09:55)
[2022-08-02] MEDS: CLOTRIMAZOLE 1% CREAM TP SCH ×2 (09:55→21:11)
[2022-08-02] MEDS: THIAMINE HCL 100 MG TABLET (FP) PO SCH (21:10)
[2022-08-02] MEDS: SUVOREXANT 20 MG TABLET PO SCH (21:10)
[2022-08-02] MEDS: ATORVASTATIN CA 40 MG TABLET (FP) PO SCH (21:11)
[2022-08-02] MEDS: MOMETASONE FUROATE 220 MCG/IH INHALER IH SCH (21:11)
[2022-08-03] MEDS: MAG HYDROX/AL HYDROX/SIMETH 30 ML UNIT-DOSE CUP PO PRN (00:11)
[2022-08-03] MEDS: NICOTINE 10 MG CARTRIDGE (INHALER) IH PRN ×2 (06:13→10:36)
[2022-08-03] MEDS: METHYL SALICYLATE/MENTHOL OINT 30 GM TUBE TP SCH ×2 (10:31→21:30)
[2022-08-03] MEDS: FENOFIBRIC ACID 135 MG CAP PO SCH (10:32)
[2022-08-03] MEDS: BUDESONIDE/FORMETEROL FUMARATE 80/4.5 mcg INHALER IH SCH ×2 (10:32→21:28)
[2022-08-03] MEDS: CLOTRIMAZOLE 1% CREAM TP SCH ×2 (10:32→21:28)
[2022-08-03] MEDS: PRENATAL VITAMINS W/ FOLIC ACID TABLET (FP) PO SCH (10:32)
[2022-08-03] MEDS: NICOTINE 14 MG/24 HOURS TOPICAL PATCH TD SCH (10:32)
[2022-08-03] MEDS: ASPIRIN COATED 81 MG TABLET.EC PO SCH (10:32)
[2022-08-03] MEDS: cloNIDine HCL 0.1 MG TABLET PO SCH ×2 (10:33→21:27)
[2022-08-03] MEDS: EMTRICITABINE 200MG/TENOFOVIR 300MG PO SCH (10:33)
[2022-08-03] MEDS: METHOCARBAMOL 500 MG TABLET PO PRN ×2 (10:36→21:27)
[2022-08-03] MEDS: SUVOREXANT 20 MG TABLET PO SCH (21:27)
[2022-08-03] MEDS: ATORVASTATIN CA 40 MG TABLET (FP) PO SCH (21:27)
[2022-08-03] MEDS: MOMETASONE FUROATE 220 MCG/IH INHALER IH SCH (21:27)
[2022-08-03] MEDS: THIAMINE HCL 100 MG TABLET (FP) PO SCH (21:30)
[2022-08-04] MEDS: NICOTINE 10 MG CARTRIDGE (INHALER) IH PRN (06:00)
[2022-08-04] MEDS: BUDESONIDE/FORMETEROL FUMARATE 80/4.5 mcg INHALER IH SCH ×2 (10:06→21:16)
[2022-08-04] MEDS: cloNIDine HCL 0.1 MG TABLET PO SCH ×2 (10:06→21:15)
[2022-08-04] MEDS: METHYL SALICYLATE/MENTHOL OINT 30 GM TUBE TP SCH ×2 (10:06→21:16)
[2022-08-04] MEDS: ASPIRIN COATED 81 MG TABLET.EC PO SCH (10:06)
[2022-08-04] MEDS: FENOFIBRIC ACID 135 MG CAP PO SCH (10:07)
[2022-08-04] MEDS: EMTRICITABINE 200MG/TENOFOVIR 300MG PO SCH (10:07)
[2022-08-04] MEDS: PRENATAL VITAMINS W/ FOLIC ACID TABLET (FP) PO SCH (10:07)
[2022-08-04] MEDS: NICOTINE 14 MG/24 HOURS TOPICAL PATCH TD SCH (10:07)
[2022-08-04] MEDS: CLOTRIMAZOLE 1% CREAM TP SCH ×2 (10:08→21:16)
[2022-08-04] MEDS: THIAMINE HCL 100 MG TABLET (FP) PO SCH (21:15)
[2022-08-04] MEDS: ATORVASTATIN CA 40 MG TABLET (FP) PO SCH (21:15)
[2022-08-04] MEDS: MOMETASONE FUROATE 220 MCG/IH INHALER IH SCH (21:16)
[2022-08-04] MEDS: SUVOREXANT 15 MG TABLET PO PRN (21:16)
[2022-08-04] MEDS: METHOCARBAMOL 500 MG TABLET PO PRN (21:16)
[2022-08-05] MEDS: NICOTINE 10 MG CARTRIDGE (INHALER) IH PRN ×3 (05:58→21:20)
[2022-08-05] MEDS: PRENATAL VITAMINS W/ FOLIC ACID TABLET (FP) PO SCH (10:00)
[2022-08-05] MEDS: BUDESONIDE/FORMETEROL FUMARATE 80/4.5 mcg INHALER IH SCH ×2 (10:00→21:20)
[2022-08-05] MEDS: FENOFIBRIC ACID 135 MG CAP PO SCH (10:00)
[2022-08-05] MEDS: EMTRICITABINE 200MG/TENOFOVIR 300MG PO SCH (10:00)
[2022-08-05] MEDS: cloNIDine HCL 0.1 MG TABLET PO SCH ×2 (10:00→21:21)
[2022-08-05] MEDS: METHYL SALICYLATE/MENTHOL OINT 30 GM TUBE TP SCH ×2 (10:01→21:21)
[2022-08-05] MEDS: CLOTRIMAZOLE 1% CREAM TP SCH ×2 (10:01→22:00)
[2022-08-05] MEDS: NICOTINE 14 MG/24 HOURS TOPICAL PATCH TD SCH (10:01)
[2022-08-05] MEDS: ASPIRIN COATED 81 MG TABLET.EC PO SCH (10:02)
[2022-08-05 20:47] VITALS: RESP 18
[2022-08-05] MEDS: MOMETASONE FUROATE 220 MCG/IH INHALER IH SCH (21:20)
[2022-08-05] MEDS: ATORVASTATIN CA 40 MG TABLET (FP) PO SCH (21:21)
[2022-08-05] MEDS: THIAMINE HCL 100 MG TABLET (FP) PO SCH (21:21)
[2022-08-05] MEDS: SUVOREXANT 15 MG TABLET PO PRN (21:22)
[2022-08-05] MEDS: METHOCARBAMOL 500 MG TABLET PO PRN (21:23)
[2022-08-06] MEDS: NICOTINE 10 MG CARTRIDGE (INHALER) IH PRN ×2 (05:57→09:48)
[2022-08-06 06:48] VITALS: BP 114/75; PULSE 76; TEMP 97.9
[2022-08-06] MEDS: BUDESONIDE/FORMETEROL FUMARATE 80/4.5 mcg INHALER IH SCH (09:45)
[2022-08-06] MEDS: FENOFIBRIC ACID 135 MG CAP PO SCH (09:46)
[2022-08-06] MEDS: cloNIDine HCL 0.1 MG TABLET PO SCH (09:46)
[2022-08-06] MEDS: PRENATAL VITAMINS W/ FOLIC ACID TABLET (FP) PO SCH (09:46)
[2022-08-06] MEDS: METHYL SALICYLATE/MENTHOL OINT 30 GM TUBE TP SCH (09:46)
[2022-08-06] MEDS: NICOTINE 14 MG/24 HOURS TOPICAL PATCH TD SCH (09:47)
[2022-08-06] MEDS: CLOTRIMAZOLE 1% CREAM TP SCH (09:47)
[2022-08-06] MEDS: ASPIRIN COATED 81 MG TABLET.EC PO SCH (09:47)
[2022-08-06] MEDS: EMTRICITABINE 200MG/TENOFOVIR 300MG PO SCH (09:47)
== END 2022-08-06 09:55 | disposition home or self-care (01) | DRG 772 ==
LOC: YASAS 13:59 → Y5N 14:00
PROVIDERS: ADMIT Allergy & Immunology; ATTEND Allergy & Immunology
PROC: HZ42ZZZ Group Counseling for Substance Abuse Treatment, Cognitive-Behavioral (ICD-10-PCS; principal; 2022-07-22)
DX: F11.20 Opioid dependence, uncomplicated (principal); F10.20 Alcohol dependence, uncomplicated; F14.20 Cocaine dependence, uncomplicated; F17.210 Nicotine dependence, cigarettes, uncomplicated; F32.A Depression, unspecified; Z21 Asymptomatic human immunodeficiency virus [HIV] infection status; E72.20 Disorder of urea cycle metabolism, unspecified; E78.5 Hyperlipidemia, unspecified; I10 Essential (primary) hypertension; B35.2 Tinea manuum; M62.838 Other muscle spasm; M54.50 Low back pain, unspecified; G89.29 Other chronic pain; R76.11 Nonspecific reaction to tuberculin skin test without active tuberculosis; Z86.19 Personal history of other infectious and parasitic diseases; Z91.014 Allergy to mammalian meats
CPT/HCPCS: 71046-TC-FY; 82140

== ENCOUNTER 2022-09-17 15:11 | Inpatient (IN) | payer OTHER ==
[2022-09-17 16:43] VITALS: BMI 24.2
[2022-09-17] MEDS ORDERED: ALBUTEROL SO4 HFA INHALER IH PRN (17:20)
[2022-09-17] MEDS ORDERED: TETANUS AND DIPHTHERIA TOXOID 0.5 ML DISP.SYRIN IM ONE (17:22)
[2022-09-17] MEDS ORDERED: BENZOCAINE/MENTHOL (CHLORASEPTIC ) LOZENGE MM PRN (17:23)
[2022-09-17] MEDS ORDERED: P-EPHED 60MG/TRIPROLIDI 2.5MG TABLET PO PRN (17:23)
[2022-09-17] MEDS ORDERED: IBUPROFEN 400 MG TABLET (FP) PO PRN (17:23)
[2022-09-17] MEDS ORDERED: NALOXONE HCL (KLOXXADO) 8 MG SPRAY NS PRN (17:23)
[2022-09-17] MEDS ORDERED: NALOXONE HCL 0.4 MG/ML VIAL IM PRN (17:23)
[2022-09-17] MEDS ORDERED: MAG HYDROX/AL HYDROX/SIMETH 30 ML UNIT-DOSE CUP PO PRN (17:23)
[2022-09-17] MEDS ORDERED: IBUPROFEN 600 MG TABLET (FP) PO PRN (17:23)
[2022-09-17] MEDS ORDERED: MAGNESIUM HYDROX 2400MG/30ML ORAL SUSPENSION 30 ML CUP PO PRN (17:23)
[2022-09-17] MEDS ORDERED: POLYETHYLENE GLYCOL (HEALTHYLAX) 3350 17 GM PACKET PO PRN (17:23)
[2022-09-17] MEDS ORDERED: BENZONATATE 200 MG CAPSULE PO PRN (17:23)
[2022-09-17] MEDS ORDERED: guaiFENesin 600 MG TABLET.ER (FP) PO PRN (17:23)
[2022-09-17] MEDS ORDERED: ACETAMINOPHEN 325 MG TABLET (FP) PO PRN (17:23)
[2022-09-17] MEDS ORDERED: LOPERAMIDE HCL 2 MG CAPSULE PO PRN (17:23)
[2022-09-17] MEDS: MOMETASONE FUROATE 220 MCG/IH INHALER IH SCH (21:33)
[2022-09-17] MEDS: VITAMINS A AND D TOPICAL OINTMENT 60 GM TUBE TP SCH (21:33)
[2022-09-17] MEDS: ATORVASTATIN CA 40 MG TABLET (FP) PO SCH (21:33)
[2022-09-17] MEDS: ASPIRIN COATED 81 MG TABLET.EC PO SCH (21:33)
[2022-09-17] MEDS: CLOTRIMAZOLE 1% CREAM TP SCH (21:34)
[2022-09-17] MEDS: THIAMINE HCL 100 MG TABLET (FP) PO SCH (21:34)
[2022-09-17] MEDS: BUDESONIDE/FORMETEROL FUMARATE 80/4.5 mcg INHALER IH SCH (21:34)
[2022-09-17] MEDS ORDERED: MELATONIN 5 MG TABLETS PO SCH (22:00)
[2022-09-17] MEDS ORDERED: DIPHTH,PERTUSS(ACELL),TET 0.5 ML DISP.SYRIN IM ONE (23:00)
[2022-09-18] MEDS: VITAMINS A AND D TOPICAL OINTMENT 60 GM TUBE TP SCH ×3 (00:30→11:06)
[2022-09-18] MEDS: cloNIDine HCL 0.1 MG TABLET PO PRN ×2 (06:46→21:23)
[2022-09-18] MEDS ORDERED: methaDONE HCL 10 MG TABLET PO SCH (09:15)
[2022-09-18] MEDS: ASPIRIN COATED 81 MG TABLET.EC PO SCH (10:15)
[2022-09-18] MEDS: PRENATAL VITAMINS W/ FOLIC ACID TABLET (FP) PO SCH (10:15)
[2022-09-18] MEDS: BUDESONIDE/FORMETEROL FUMARATE 80/4.5 mcg INHALER IH SCH ×2 (10:15→21:27)
[2022-09-18] MEDS ORDERED: SUVOREXANT 10 MG TABLET PO PRN (10:36)
[2022-09-18] MEDS: CLOTRIMAZOLE 1% CREAM TP SCH (10:40)
[2022-09-18] MEDS: FENOFIBRIC ACID 135 MG CAP PO SCH (10:40)
[2022-09-18] MEDS: CHOLECALCIFEROL (VIT D3) 5000 UNITS (125 MCG) CAP PO SCH (10:40)
[2022-09-18] MEDS: ESCITALOPRAM OXALATE 10 MG TABLET PO SCH (11:04)
[2022-09-18] MEDS: THIAMINE HCL 100 MG TABLET (FP) PO SCH (21:23)
[2022-09-18] MEDS: ATORVASTATIN CA 40 MG TABLET (FP) PO SCH (21:23)
[2022-09-19] MEDS: VITAMINS A AND D TOPICAL OINTMENT 60 GM TUBE TP SCH ×3 (00:30→12:10)
[2022-09-19] MEDS: CLOTRIMAZOLE 1% CREAM TP SCH (09:40)
[2022-09-19] MEDS: ASPIRIN COATED 81 MG TABLET.EC PO SCH (09:40)
[2022-09-19] MEDS: BUDESONIDE/FORMETEROL FUMARATE 80/4.5 mcg INHALER IH SCH (09:40)
[2022-09-19] MEDS: PRENATAL VITAMINS W/ FOLIC ACID TABLET (FP) PO SCH (09:40)
[2022-09-19] MEDS: ESCITALOPRAM OXALATE 10 MG TABLET PO SCH (09:40)
[2022-09-19] MEDS: CHOLECALCIFEROL (VIT D3) 5000 UNITS (125 MCG) CAP PO SCH (09:40)
[2022-09-19] MEDS: FENOFIBRIC ACID 135 MG CAP PO SCH (09:40)
[2022-09-19] MEDS: cloNIDine HCL 0.1 MG TABLET PO PRN ×2 (09:45→21:38)
[2022-09-19 12:20] LABS: HEMATOCRIT 32.1 % (35.4-49); HEMOGLOBIN 10.6 GM/dL (11.7-16.9); MCH 27.7 pg (25.7-33.7); MCHC 32.9 g/dl (32.0-35.9); MEAN PLT VOLUME 8.5 fl (7.5-11.1); PLATELET COUNT 212 10^3/uL (134-434); RBC 3.83 M/mm3 (4.00-5.60); WHITE BLOOD COUNT 6.8 K/mm3 (4.0-10.0)
[2022-09-19 12:27] LABS: CALCIUM 8.6 mg/dL (8.5-10.1)
[2022-09-19 12:28] LABS: ALBUMIN 3.1 g/dl (3.4-5.0); BLOOD UREA NITROGEN 12.8 mg/dL (7-18)
[2022-09-19 12:30] LABS: BILIRUBIN,TOTAL 0.2 mg/dL (0.2-1)
[2022-09-19 12:31] LABS: CREATININE 1.1 mg/dL (0.55-1.3)
[2022-09-19 12:33] LABS: TOT PROT 5.7 g/dl (6.4-8.2)
[2022-09-19 17:05] LABS: EPI CELLS 13 /uL (0-25.1); HYALINE CASTS 1 /uL (0-3.1); PH,URINE 5.5 (5.0-8.0); URINE APPEARANCE CLEAR; URINE BACTERIA 76 /uL (0-1359); URINE BILIRUBIN NEGATIVE (NEGATIVE); URINE COLOR YELLOW; URINE GLUCOSE (UA) NEGATIVE (NEGATIVE); URINE KETONE TRACE (NEGATIVE); URINE LEUK ESTERASE TRACE (NEGATIVE); URINE NITRITE NEGATIVE (NEGATIVE); URINE PROTEIN NEGATIVE (NEGATIVE); URINE RBC 5 /uL (0-23.9); URINE UROBILINOGEN 0.2 mg/dL (0.2-1.0); URINE WBC 22 /uL (0-25.8)
[2022-09-19] MEDS: ATORVASTATIN CA 40 MG TABLET (FP) PO SCH (21:38)
[2022-09-19] MEDS: THIAMINE HCL 100 MG TABLET (FP) PO SCH (21:38)
[2022-09-20] MEDS: NICOTINE 10 MG CARTRIDGE (INHALER) IH PRN (06:52)
[2022-09-20] MEDS: VITAMINS A AND D TOPICAL OINTMENT 60 GM TUBE TP SCH ×4 (07:55→17:15)
[2022-09-20] MEDS: CLOTRIMAZOLE 1% CREAM TP SCH ×4 (09:51→22:10)
[2022-09-20] MEDS: ASPIRIN COATED 81 MG TABLET.EC PO SCH (09:53)
[2022-09-20] MEDS: CHOLECALCIFEROL (VIT D3) 5000 UNITS (125 MCG) CAP PO SCH (09:54)
[2022-09-20] MEDS: ESCITALOPRAM OXALATE 10 MG TABLET PO SCH (09:54)
[2022-09-20] MEDS: PRENATAL VITAMINS W/ FOLIC ACID TABLET (FP) PO SCH (09:54)
[2022-09-20] MEDS: FENOFIBRIC ACID 135 MG CAP PO SCH (09:54)
[2022-09-20] MEDS: BUDESONIDE/FORMETEROL FUMARATE 80/4.5 mcg INHALER IH SCH ×3 (10:06→22:10)
[2022-09-20] MEDS: cloNIDine HCL 0.1 MG TABLET PO PRN ×2 (10:10→21:24)
[2022-09-20] MEDS: MOMETASONE FUROATE 220 MCG/IH INHALER IH SCH ×3 (17:14→23:12)
[2022-09-20] MEDS: THIAMINE HCL 100 MG TABLET (FP) PO SCH (21:25)
[2022-09-20] MEDS: ATORVASTATIN CA 40 MG TABLET (FP) PO SCH (21:25)
[2022-09-21] MEDS: VITAMINS A AND D TOPICAL OINTMENT 60 GM TUBE TP SCH ×5 (02:38→23:09)
[2022-09-21] MEDS: ESCITALOPRAM OXALATE 10 MG TABLET PO SCH (09:55)
[2022-09-21] MEDS: ASPIRIN COATED 81 MG TABLET.EC PO SCH (09:55)
[2022-09-21] MEDS: PRENATAL VITAMINS W/ FOLIC ACID TABLET (FP) PO SCH (09:56)
[2022-09-21] MEDS: BUDESONIDE/FORMETEROL FUMARATE 80/4.5 mcg INHALER IH SCH ×2 (09:56→21:21)
[2022-09-21] MEDS: CLOTRIMAZOLE 1% CREAM TP SCH ×2 (09:56→21:21)
[2022-09-21] MEDS: cloNIDine HCL 0.1 MG TABLET PO PRN ×2 (09:57→21:26)
[2022-09-21] MEDS: FENOFIBRIC ACID 135 MG CAP PO SCH (09:57)
[2022-09-21] MEDS: CHOLECALCIFEROL (VIT D3) 5000 UNITS (125 MCG) CAP PO SCH (09:57)
[2022-09-21] MEDS: NICOTINE 10 MG CARTRIDGE (INHALER) IH PRN (10:03)
[2022-09-21] MEDS: THIAMINE HCL 100 MG TABLET (FP) PO SCH (21:20)
[2022-09-21] MEDS: MOMETASONE FUROATE 220 MCG/IH INHALER IH SCH (21:21)
[2022-09-21] MEDS: ATORVASTATIN CA 40 MG TABLET (FP) PO SCH (21:21)
[2022-09-21] MEDS: SUVOREXANT 10 MG TABLET PO PRN (21:22)
[2022-09-22] MEDS: VITAMINS A AND D TOPICAL OINTMENT 60 GM TUBE TP SCH ×2 (06:13→11:28)
[2022-09-22] MEDS: ESCITALOPRAM OXALATE 10 MG TABLET PO SCH (10:07)
[2022-09-22] MEDS: PRENATAL VITAMINS W/ FOLIC ACID TABLET (FP) PO SCH (10:07)
[2022-09-22] MEDS: ASPIRIN COATED 81 MG TABLET.EC PO SCH (10:07)
[2022-09-22] MEDS: BUDESONIDE/FORMETEROL FUMARATE 80/4.5 mcg INHALER IH SCH ×2 (10:08→21:10)
[2022-09-22] MEDS: CHOLECALCIFEROL (VIT D3) 5000 UNITS (125 MCG) CAP PO SCH (10:08)
[2022-09-22] MEDS: CLOTRIMAZOLE 1% CREAM TP SCH ×2 (10:08→21:10)
[2022-09-22] MEDS: FENOFIBRIC ACID 135 MG CAP PO SCH (10:08)
[2022-09-22] MEDS: cloNIDine HCL 0.1 MG TABLET PO PRN ×2 (11:06→21:09)
[2022-09-22] MEDS ORDERED: VITAMINS A AND D TOPICAL OINTMENT 60 GM TUBE TP PRN (12:43)
[2022-09-22] MEDS: THIAMINE HCL 100 MG TABLET (FP) PO SCH (21:08)
[2022-09-22] MEDS: ATORVASTATIN CA 40 MG TABLET (FP) PO SCH (21:09)
[2022-09-22] MEDS: MOMETASONE FUROATE 220 MCG/IH INHALER IH SCH (21:10)
[2022-09-22] MEDS: SUVOREXANT 10 MG TABLET PO PRN (21:10)
[2022-09-23] MEDS: NICOTINE 10 MG CARTRIDGE (INHALER) IH PRN (09:50)
[2022-09-23] MEDS: ASPIRIN COATED 81 MG TABLET.EC PO SCH (09:51)
[2022-09-23] MEDS: PRENATAL VITAMINS W/ FOLIC ACID TABLET (FP) PO SCH (09:51)
[2022-09-23] MEDS: ESCITALOPRAM OXALATE 10 MG TABLET PO SCH (09:51)
[2022-09-23] MEDS: CHOLECALCIFEROL (VIT D3) 5000 UNITS (125 MCG) CAP PO SCH (09:51)
[2022-09-23] MEDS: FENOFIBRIC ACID 135 MG CAP PO SCH (09:52)
[2022-09-23] MEDS: cloNIDine HCL 0.1 MG TABLET PO PRN ×2 (09:52→21:21)
[2022-09-23] MEDS: BUDESONIDE/FORMETEROL FUMARATE 80/4.5 mcg INHALER IH SCH ×2 (09:53→21:29)
[2022-09-23] MEDS: CLOTRIMAZOLE 1% CREAM TP SCH ×2 (09:53→21:22)
[2022-09-23] MEDS: THIAMINE HCL 100 MG TABLET (FP) PO SCH (21:21)
[2022-09-23] MEDS: SUVOREXANT 10 MG TABLET PO PRN (21:22)
[2022-09-23] MEDS: ATORVASTATIN CA 40 MG TABLET (FP) PO SCH (21:22)
[2022-09-23] MEDS: MOMETASONE FUROATE 220 MCG/IH INHALER IH SCH (21:29)
[2022-09-24] MEDS: ASPIRIN COATED 81 MG TABLET.EC PO SCH (09:49)
[2022-09-24] MEDS: PRENATAL VITAMINS W/ FOLIC ACID TABLET (FP) PO SCH (09:49)
[2022-09-24] MEDS: FENOFIBRIC ACID 135 MG CAP PO SCH (09:49)
[2022-09-24] MEDS: CHOLECALCIFEROL (VIT D3) 5000 UNITS (125 MCG) CAP PO SCH (09:49)
[2022-09-24] MEDS: ESCITALOPRAM OXALATE 10 MG TABLET PO SCH (09:49)
[2022-09-24] MEDS: CLOTRIMAZOLE 1% CREAM TP SCH ×2 (09:50→21:12)
[2022-09-24] MEDS: BUDESONIDE/FORMETEROL FUMARATE 80/4.5 mcg INHALER IH SCH ×2 (09:50→21:13)
[2022-09-24] MEDS: CLINDAMYCIN HCL 150 MG CAPSULE (FP) PO SCH ×2 (12:00→18:00)
[2022-09-24] MEDS: ATORVASTATIN CA 40 MG TABLET (FP) PO SCH (21:11)
[2022-09-24] MEDS: SUVOREXANT 10 MG TABLET PO PRN (21:11)
[2022-09-24] MEDS: cloNIDine HCL 0.1 MG TABLET PO PRN (21:11)
[2022-09-24] MEDS: THIAMINE HCL 100 MG TABLET (FP) PO SCH (21:11)
[2022-09-24] MEDS: MOMETASONE FUROATE 220 MCG/IH INHALER IH SCH (21:13)
[2022-09-25] MEDS: CLINDAMYCIN HCL 150 MG CAPSULE (FP) PO SCH ×4 (00:50→18:18)
[2022-09-25] MEDS: ASPIRIN COATED 81 MG TABLET.EC PO SCH (09:50)
[2022-09-25] MEDS: CLOTRIMAZOLE 1% CREAM TP SCH ×2 (09:51→21:16)
[2022-09-25] MEDS: PRENATAL VITAMINS W/ FOLIC ACID TABLET (FP) PO SCH (09:51)
[2022-09-25] MEDS: ESCITALOPRAM OXALATE 10 MG TABLET PO SCH (09:51)
[2022-09-25] MEDS: BUDESONIDE/FORMETEROL FUMARATE 80/4.5 mcg INHALER IH SCH ×2 (09:52→21:16)
[2022-09-25] MEDS: FENOFIBRIC ACID 135 MG CAP PO SCH (09:52)
[2022-09-25] MEDS: CHOLECALCIFEROL (VIT D3) 5000 UNITS (125 MCG) CAP PO SCH (09:52)
[2022-09-25] MEDS: cloNIDine HCL 0.1 MG TABLET PO PRN ×2 (09:53→21:17)
[2022-09-25] MEDS: NICOTINE 10 MG CARTRIDGE (INHALER) IH PRN (09:56)
[2022-09-25] MEDS: THIAMINE HCL 100 MG TABLET (FP) PO SCH (21:15)
[2022-09-25] MEDS: MOMETASONE FUROATE 220 MCG/IH INHALER IH SCH (21:16)
[2022-09-25] MEDS: ATORVASTATIN CA 40 MG TABLET (FP) PO SCH (21:16)
[2022-09-26] MEDS: CLINDAMYCIN HCL 150 MG CAPSULE (FP) PO SCH ×4 (00:49→18:16)
[2022-09-26] MEDS: BUDESONIDE/FORMETEROL FUMARATE 80/4.5 mcg INHALER IH SCH ×2 (09:42→21:13)
[2022-09-26] MEDS: ESCITALOPRAM OXALATE 10 MG TABLET PO SCH (09:43)
[2022-09-26] MEDS: FENOFIBRIC ACID 135 MG CAP PO SCH (09:43)
[2022-09-26] MEDS: CHOLECALCIFEROL (VIT D3) 5000 UNITS (125 MCG) CAP PO SCH (09:43)
[2022-09-26] MEDS: ASPIRIN COATED 81 MG TABLET.EC PO SCH (09:43)
[2022-09-26] MEDS: PRENATAL VITAMINS W/ FOLIC ACID TABLET (FP) PO SCH (09:43)
[2022-09-26] MEDS: CLOTRIMAZOLE 1% CREAM TP SCH ×2 (09:44→21:15)
[2022-09-26] MEDS: THIAMINE HCL 100 MG TABLET (FP) PO SCH (21:13)
[2022-09-26] MEDS: cloNIDine HCL 0.1 MG TABLET PO PRN (21:13)
[2022-09-26] MEDS: ATORVASTATIN CA 40 MG TABLET (FP) PO SCH (21:13)
[2022-09-26] MEDS: MOMETASONE FUROATE 220 MCG/IH INHALER IH SCH (21:14)
[2022-09-27] MEDS: CLINDAMYCIN HCL 150 MG CAPSULE (FP) PO SCH ×4 (00:20→18:30)
[2022-09-27] MEDS: ESCITALOPRAM OXALATE 10 MG TABLET PO SCH (09:48)
[2022-09-27] MEDS: ASPIRIN COATED 81 MG TABLET.EC PO SCH (09:48)
[2022-09-27] MEDS: FENOFIBRIC ACID 135 MG CAP PO SCH (09:49)
[2022-09-27] MEDS: PRENATAL VITAMINS W/ FOLIC ACID TABLET (FP) PO SCH (09:49)
[2022-09-27] MEDS: BUDESONIDE/FORMETEROL FUMARATE 80/4.5 mcg INHALER IH SCH ×2 (09:49→21:20)
[2022-09-27] MEDS: CHOLECALCIFEROL (VIT D3) 5000 UNITS (125 MCG) CAP PO SCH (09:49)
[2022-09-27] MEDS: CLOTRIMAZOLE 1% CREAM TP SCH ×2 (09:50→21:23)
[2022-09-27] MEDS: cloNIDine HCL 0.1 MG TABLET PO PRN ×2 (11:10→21:22)
[2022-09-27] MEDS: THIAMINE HCL 100 MG TABLET (FP) PO SCH (21:20)
[2022-09-27] MEDS: ATORVASTATIN CA 40 MG TABLET (FP) PO SCH (21:22)
[2022-09-27] MEDS: MOMETASONE FUROATE 220 MCG/IH INHALER IH SCH (21:23)
[2022-09-28] MEDS: CLINDAMYCIN HCL 150 MG CAPSULE (FP) PO SCH ×2 (00:54→06:05)
[2022-09-28 06:39] VITALS: RESP 16; TEMP 98.4
[2022-09-28 08:50] VITALS: BP 123/71; PULSE 80
[2022-09-28] MEDS: CHOLECALCIFEROL (VIT D3) 5000 UNITS (125 MCG) CAP PO SCH (09:02)
[2022-09-28] MEDS: ASPIRIN COATED 81 MG TABLET.EC PO SCH (09:02)
[2022-09-28] MEDS: ESCITALOPRAM OXALATE 10 MG TABLET PO SCH (09:02)
[2022-09-28] MEDS: BUDESONIDE/FORMETEROL FUMARATE 80/4.5 mcg INHALER IH SCH (09:03)
[2022-09-28] MEDS: FENOFIBRIC ACID 135 MG CAP PO SCH (09:03)
[2022-09-28] MEDS: PRENATAL VITAMINS W/ FOLIC ACID TABLET (FP) PO SCH (09:03)
[2022-09-28] MEDS: CLOTRIMAZOLE 1% CREAM TP SCH (09:05)
== END 2022-09-28 09:05 | disposition home or self-care (01) | DRG 772 ==
LOC: YASAS 15:11 → Y3E 20:09
PROVIDERS: ADMIT Allergy & Immunology; ATTEND Psychiatry & Neurology Pain Medicine
PROC: HZ42ZZZ Group Counseling for Substance Abuse Treatment, Cognitive-Behavioral (ICD-10-PCS; principal; 2022-09-17)
DX: F11.20 Opioid dependence, uncomplicated (principal); F14.20 Cocaine dependence, uncomplicated; F10.20 Alcohol dependence, uncomplicated; F19.282 Other psychoactive substance dependence with psychoactive substance-induced sleep disorder; F19.280 Other psychoactive substance dependence with psychoactive substance-induced anxiety disorder; F19.24 Other psychoactive substance dependence with psychoactive substance-induced mood disorder; F32.A Depression, unspecified; E78.5 Hyperlipidemia, unspecified; I10 Essential (primary) hypertension; J45.909 Unspecified asthma, uncomplicated; M25.519 Pain in unspecified shoulder; M54.50 Low back pain, unspecified; G89.29 Other chronic pain; B35.2 Tinea manuum
CPT/HCPCS: 36415; 80053; 81003; 85027; 86593; 86780; 87811; C9803-CS; U0003; U0005

== ENCOUNTER 2023-07-18 13:03 | Inpatient (IN) | payer OTHER ==
[2023-07-18 13:41] VITALS: BMI 25.9
[2023-07-18] MEDS ORDERED: POLYETHYLENE GLYCOL (HEALTHYLAX) 3350 17 GM PACKET PO PRN (14:08)
[2023-07-18] MEDS ORDERED: guaiFENesin 600 MG TABLET.ER (FP) PO PRN (14:08)
[2023-07-18] MEDS ORDERED: BENZONATATE 200 MG CAPSULE PO PRN (14:08)
[2023-07-18] MEDS ORDERED: NALOXONE HCL (KLOXXADO) 8 MG SPRAY NS PRN (14:08)
[2023-07-18] MEDS ORDERED: BENZOCAINE/MENTHOL (CHLORASEPTIC ) LOZENGE MM PRN (14:08)
[2023-07-18] MEDS ORDERED: NALOXONE HCL 0.4 MG/ML VIAL IM PRN (14:08)
[2023-07-18] MEDS ORDERED: LOPERAMIDE HCL 2 MG CAPSULE PO PRN (14:08)
[2023-07-18] MEDS ORDERED: MAG HYDROX/AL HYDROX/SIMETH 30 ML UNIT-DOSE CUP PO PRN (14:08)
[2023-07-18] MEDS ORDERED: IBUPROFEN 400 MG TABLET (FP) PO PRN (14:08)
[2023-07-18] MEDS ORDERED: PRENATAL VITAMINS W/ FOLIC ACID TABLET (FP) PO ONE (15:19)
[2023-07-18] MEDS: PRENATAL VITAMINS W/ FOLIC ACID TABLET (FP) PO SCH (15:20)
[2023-07-18] MEDS: THIAMINE HCL 100 MG TABLET (FP) PO SCH (21:10)
[2023-07-18] MEDS: MELATONIN 5 MG TABLETS PO SCH (21:10)
[2023-07-19] MEDS ORDERED: methaDONE HCL 10 MG TABLET PO SCH (08:15)
[2023-07-19 11:48] LABS: HEMATOCRIT 37.6 % (35.4-49); HEMOGLOBIN 12.4 GM/dL (11.7-16.9); MCH 26.9 pg (25.7-33.7); MEAN CELL VOLUME 81.5 fl (80-96); MEAN PLT VOLUME 8.8 fl (7.5-11.1); PLATELET COUNT 268 10^3/uL (134-434); RBC 4.61 M/mm3 (4.00-5.60); WHITE BLOOD COUNT 7.6 K/mm3 (4.0-10.0)
[2023-07-19 11:52] LABS: EPI CELLS 7 /uL (0-25.1); HYALINE CASTS 1 /uL (0-3.1); URINE APPEARANCE CLEAR; URINE BACTERIA 0 /uL (0-1359); URINE BILIRUBIN NEGATIVE (NEGATIVE); URINE COLOR YELLOW; URINE GLUCOSE (UA) NEGATIVE (NEGATIVE); URINE KETONE NEGATIVE (NEGATIVE); URINE LEUK ESTERASE NEGATIVE (NEGATIVE); URINE NITRITE NEGATIVE (NEGATIVE); URINE PROTEIN NEGATIVE (NEGATIVE); URINE RBC 15 /uL (0-23.9); URINE UROBILINOGEN 0.2 mg/dL (0.2-1.0); URINE WBC 3 /uL (0-25.8)
[2023-07-19 12:17] LABS: CHLORIDE 107 mmol/L (98-107); POTASSIUM 4.6 mmol/L (3.5-5.1); SODIUM 140 mmol/L (136-145)
[2023-07-19 12:20] LABS: CALCIUM 8.9 mg/dL (8.5-10.1)
[2023-07-19 12:21] LABS: ALBUMIN 3.7 g/dl (3.4-5.0); ANION GAP 4 mmol/L (4-13); BLOOD UREA NITROGEN 23.9 mg/dL (7-18); CO2 29 mmol/L (21-32); GLUCOSE,RANDOM 112 mg/dL (74-106)
[2023-07-19 12:24] LABS: CREATININE 1.4 mg/dL (0.55-1.3); SGOT/AST 24 U/L (15-37); SGPT/ALT 32 U/L (13-61)
[2023-07-19 12:27] LABS: ALK PHOS 109 U/L (45-117); BILIRUBIN,TOTAL 0.4 mg/dL (0.2-1); TOT PROT 6.8 g/dl (6.4-8.2)
[2023-07-19 12:55] LABS: HIV INTERPRETATION NEGATIVE (NEGATIVE)
[2023-07-19 13:00] LABS: SYPHILIS W/ RPR CONF REACTIVE (NONREACTIVE)
[2023-07-19] MEDS: hydrOXYzine PAMOATE 25 MG CAPSULE (FP) PO PRN (21:50)
[2023-07-19] MEDS: SUVOREXANT 10 MG TABLET PO PRN (22:20)
[2023-07-20] MEDS: IBUPROFEN 600 MG TABLET (FP) PO PRN (02:37)
[2023-07-20] MEDS: cloNIDine HCL 0.1 MG TABLET PO SCH (09:24)
[2023-07-20] MEDS: BUDESONIDE/FORMETEROL FUMARATE 80/4.5 mcg INHALER IH SCH (10:04)
[2023-07-20] MEDS: ATORVASTATIN CA 40 MG TABLET (FP) PO SCH (21:22)
[2023-07-21] MEDS: CARBAMIDE PEROXIDE 6.5% OTIC 15 ML BOTTLE AU SCH (13:04)
[2023-07-21] MEDS: cloNIDine HCL 0.1 MG TABLET PO SCH (18:55)
[2023-07-21] MEDS: SUVOREXANT 15 MG TABLET PO PRN (21:30)
[2023-07-23] MEDS: CLOTRIMAZOLE 1% CREAM TP PRN (09:42)
[2023-07-24] MEDS: ACETAMINOPHEN 325 MG TABLET (FP) PO PRN (02:51)
[2023-07-24] MEDS: cloNIDine HCL 0.1 MG TABLET PO SCH (13:43)
[2023-07-25] MEDS: SUVOREXANT 15 MG TABLET PO PRN (21:27)
[2023-07-26] MEDS: ALBUTEROL SO4 HFA INHALER IH PRN (09:49)
[2023-07-28] MEDS: SUVOREXANT 15 MG TABLET PO PRN (21:27)
[2023-07-30] MEDS: MAGNESIUM HYDROX 2400MG/30ML ORAL SUSPENSION 30 ML CUP PO PRN (09:53)
[2023-07-30] MEDS ORDERED: SUVOREXANT 15 MG TABLET PO PRN (22:00)
[2023-08-01 06:32] VITALS: RESP 16; TEMP 97.7
[2023-08-01 09:07] VITALS: BP 126/80; PULSE 69
== END 2023-08-01 09:00 | disposition home or self-care (01) | DRG 772 ==
LOC: YASAS 13:03 → Y3E 17:05
PROVIDERS: ADMIT Allergy & Immunology; ATTEND Psychiatry & Neurology Pain Medicine
PROC: HZ42ZZZ Group Counseling for Substance Abuse Treatment, Cognitive-Behavioral (ICD-10-PCS; principal; 2023-07-18)
DX: F10.20 Alcohol dependence, uncomplicated (principal); F11.20 Opioid dependence, uncomplicated; F14.20 Cocaine dependence, uncomplicated; F17.210 Nicotine dependence, cigarettes, uncomplicated; F19.280 Other psychoactive substance dependence with psychoactive substance-induced anxiety disorder; E78.5 Hyperlipidemia, unspecified; I10 Essential (primary) hypertension; J45.909 Unspecified asthma, uncomplicated; M54.50 Low back pain, unspecified; G89.29 Other chronic pain; H61.23 Impacted cerumen, bilateral; S09.8XXA Other specified injuries of head, initial encounter; Y04.2XXA Assault by strike against or bumped into by another person, initial encounter; Y92.238 Other place in hospital as the place of occurrence of the external cause; Z86.19 Personal history of other infectious and parasitic diseases; Z86.11 Personal history of tuberculosis
CPT/HCPCS: 36415; 71046-TC-FY; 80053; 80307; 81003; 85027; 86593; 86780; 86803; 87389; 87635; 87811; 93005; 93010